=== PATIENT | male | born 1955 | race Caucasian/White ===

== ENCOUNTER 2019-02-03 10:53 | Outpatient (CLI) | payer MEDICARE ==
--- NOTE | 2019-02-06 00:07 | Ultrasound Report ---
Reason: DYSPNEA, EDEMA Procedure Date: 02/03/2019 Accession Number: [id number] / [id number] Procedure: US - Duplex Ext Veins Bilateral CPT Code: Final Report FULL RESULT: EXAM: BILATERAL LOWER EXTREMITY VENOUS ULTRASOUND EXAM DATE: 02/03/2019 11:15 AM. CLINICAL HISTORY: DYSPNEA, EDEMA. COMPARISON: None. TECHNIQUE: Real-time sonographic vascular imaging was performed by the landscape drafter through the lower extremities utilizing both color-flow and Doppler spectral analysis. Multiple mechanical service representative static images were saved for review. FINDINGS: Right: Common Femoral Vein (CFV): Normal. CFV-GSV Junction: Normal. Profunda Femoral Vein (PFV): Normal. Femoral Vein (FV) Prox: Normal. Femoral Vein (FV) Mid: Normal. Femoral Vein (FV) Dist: Normal. Popliteal Vein: Normal. Posterior Tibial Veins: Normal. Peroneal Veins: Normal. Left: Common Femoral Vein (CFV): Normal. CFV-GSV Junction: Normal. Profunda Femoral Vein (PFV): Normal. Femoral Vein (FV) Prox: Normal. Femoral Vein (FV) Mid: Normal. Femoral Vein (FV) Dist: Normal. Popliteal Vein: Normal. Posterior Tibial Veins: Normal. Peroneal Veins: Normal. Other: None. IMPRESSION: No evidence for deep venous thrombosis bilaterally. RADIA
== END 2019-02-03 10:54 | disposition home or self-care (01) ==
LOC: DI 10:53
PROVIDERS: ATTEND Internal Medicine
DX: R60.0 Localized edema (principal); R06.00 Dyspnea, unspecified; I35.1 Nonrheumatic aortic (valve) insufficiency
CPT/HCPCS: 93306; 93970

== ENCOUNTER 2019-04-27 11:08 | Outpatient (CLI) | payer MEDICARE ==
--- NOTE | 2019-04-28 15:35 | CT Report ---
Reason: RT FLANK PAIN, HX OF NEPHROLITHIASIS Procedure Date: 04/27/2019 Accession Number: [id number] / [id number] Procedure: CT - Abdomen/Pelvis WO CPT Code: Final Report FULL RESULT: EXAM: CT ABDOMEN AND PELVIS (CT KUB) EXAM DATE: 04/27/2019 11:21 AM. CLINICAL HISTORY: Right flank pain, history of nephrolithiasis. COMPARISONS: None. TECHNIQUE: Routine axial helical CT imaging was performed through the abdomen and pelvis without IV contrast. Reconstructions: Coronal and sagittal. In accordance with CT protocol optimization, one or more of the following dose reduction techniques were utilized for this exam: automated exposure control, adjustment of mA and/or KV based on patient size, or use of iterative reconstructive technique. FINDINGS: Lung Bases: None Right Kidney/Ureter: No stones, hydronephrosis, or hydroureter. No perinephric fat stranding. Left Kidney/Ureter: Nonobstructing 2 mm lower pole left renal stone. No hydronephrosis. No hydroureter. No masses are noted. Other Solid Organs: Liver shows a cirrhotic configuration, with an elevated caudate: right lobe ratio. Border of the left lobe is nodular and irregular. Some small amount of perihepatic ascites is present. Quite prominent short gastric varices. Series 3 image 27. Gallbladder/Bile Ducts: Unremarkable. Peritoneal Cavity: Sigmoid colonic diverticulosis is present without diverticulitis or abscess. Some free pelvic fluid is noted as well. Pelvic Organs: No bladder stones. No bladder wall thickening. Vasculature: Unremarkable. Other: L5-S1 disk space height loss and marginal arthrosis. Severe bilateral foraminal stenosis. Old T12 compression fracture with loss of about 15% of vertebral body height. No acute fractures. IMPRESSION: 1. Nonobstructing 2 mm lower pole left renal stone. No hydronephrosis, no masses. 2. Hepatic cirrhosis, small amount of ascitic fluid. Evidence for portal venous hypertension with distended short gastric varices. 3. Sigmoid colonic diverticulosis is present without diverticulitis or abscess formation. 4. L5-S1 disk space height loss, marginal arthrosis with severe bilateral foraminal stenosis, and old T12 compression fracture with loss of about 15% of vertebral body height. No acute fractures. RADIA
== END 2019-04-27 11:09 | disposition home or self-care (01) ==
LOC: DI 11:08
PROVIDERS: ATTEND Internal Medicine
DX: R10.9 Unspecified abdominal pain (principal); N20.0 Calculus of kidney; K74.60 Unspecified cirrhosis of liver; K76.6 Portal hypertension; K57.30 Diverticulosis of large intestine without perforation or abscess without bleeding; M47.817 Spondylosis without myelopathy or radiculopathy, lumbosacral region; M48.07 Spinal stenosis, lumbosacral region
CPT/HCPCS: 74176

== ENCOUNTER 2019-07-27 08:08 | Outpatient (CLI) | payer MEDICARE | END 2019-07-27 08:09 | disposition critical access hospital (66) | LOC: EMS 08:08 | PROVIDERS: ATTEND Surgery | DX: R06.02 Shortness of breath (principal) | CPT/HCPCS: A0425; A0427 ==

== ENCOUNTER 2019-07-27 08:19 | Emergency (ER) | payer MEDICARE ==
--- NOTE | 2019-07-27 08:54 | ED Physician Documentation ---
PD HPI DYSPNEA - Stated complaint Stated Complaint: SOA - Chief complaint Chief Complaint: Resp - History obtained from History obtained from: Patient, EMS - History of Present Illness Timing - onset: Last night Timing - onset during: Rest Timing - duration: Hours Timing - details: Gradual onset, Still present Inciting event(s): Immobilization/travel Improved by: O2, Inhaler/neb, Rest, Sitting up Worsened by: Exertion, Laying flat Associated symptoms: Wheezing, Bilateral edema. No: Fever, Cough, Chest pain / discomfort, Palpitations Similar symptoms before: Diagnosis (fluid retention) Recently seen: Surgery - Additional information Additional information: 63-year-old male has had an umbilical hernia repair done 3 days ago at [facility] and beginning yesterday he began develop some increasing shortness of breath with difficulty getting a full deep breath he coughs a lot all night last night and was unable to breathe this morning he comes to the emergency department with shortness of breath it is somewhat and better after receiving a treatment in route. He does have some peripheral edema which she has had prior to his hospitalization. He indicates a history of increasing exertional dyspnea over the past year. He has not had chest pain.With his coughing last night he did have some chest pain associated with a cough but no pain otherwise. He states he brought up a lot of clear phlegm with this. He does not think he aspirated. Review of Systems Constitutional: denies: Fever Eyes: denies: Decreased vision Ears: denies: Ear pain Nose: denies: Rhinorrhea / runny nose, Congestion Throat: denies: Sore throat Cardiac: reports: Pedal edema. denies: Chest pain / pressure, Palpitations Respiratory: reports: Dyspnea, Cough GI: reports: Abdominal Pain (surgical site). denies: Nausea, Vomiting : denies: Dysuria, Frequency PD PAST MEDICAL HISTORY - Present Medications Home Medications: Ambulatory Orders Medication Instructions Recorded Confirmed Levothyroxine [Synthroid] 0 mcg PO QDAC 07/27/19 07/27/19 Losartan Potassium [Cozaar] 0 mg PO DAILY 07/27/19 07/27/19 Spironolactone [Aldactone] 0 mg PO DAILY 07/27/19 07/27/19 - Allergies Allergies/Adverse Reactions: Allergies Allergy/AdvReac Type Severity Reaction Status Date / Time No Known Drug Allergies Allergy Verified 07/27/19 08:33 PD ED PE NORMAL - Vitals Vital signs reviewed: Yes (hypertensive ) - General General: Alert and oriented X 3, No acute distress, Well developed/nourished - HEENT HEENT: Atraumatic, PERRL, EOMI - Neck Neck: Supple, no meningeal sign, No bony TTP - Cardiac Cardiac: RRR, No murmur - Respiratory Respiratory: No respiratory distress, Clear bilaterally - Abdomen Abdomen: Soft, Non tender, Other (there are bandages to the lower abdomen over the surgical site. ) - Back Back: No CVA TTP, No spinal TTP - Derm Derm: Normal color, Warm and dry, No rash - Extremities Extremities: No deformity, No tenderness to palpate, Other (trace edema to the calves bilaterally pitting. ) - Neuro Neuro: Alert and oriented X 3, base ply hand 2-12 intact, No motor deficit, No sensory deficit, Normal speech Eye Opening: Spontaneous Motor: Obeys Commands Verbal: Oriented GCS Score: 15 - Psych Psych: Normal mood, Normal affect Results - Vitals Vitals: Vital Signs - 24 hr 07/27/19 07/27/19 07/27/19 08:20 09:30 10:37 Temperature 36.7 C Heart Rate 80 80 85 Respiratory 23 16 18 Rate Blood Pressure 155/77 H 167/80 H 157/74 H O2 Saturation 92 93 94 07/27/19 12:00 Temperature Heart Rate 90 Respiratory 26 H Rate Blood Pressure 170/72 H O2 Saturation 93 Oxygen O2 Source Nasal cannula Oxygen Flow Rate 3 - EKG (time done) 0849 Rate: Rate (enter#) (68) [place]: RAD QRS: Low voltage Compare to prior EKG: Old EKG unavailable Computer interpretation: Agree with computer - Labs Labs: Laboratory Tests 07/27/19 07/27/19 07/27/19 08:59 08:59 08:59 WBC 13.2 H RBC 4.48 L Hgb 16.4 Hct 47.7 MCV 106.5 H MCH 36.6 H MCHC 34.4 RDW 14.2 Plt Count 132 MPV 9.2 Neut # (Auto) 9.8 H Lymph # (Auto) 1.9 [place] # (Auto) 1.4 H Eos # (Auto) 0.0 Baso # (Auto) 0.1 Absolute Nucleated RBC 0.00 Nucleated RBC % 0.0 Sodium 137 Potassium 4.0 Chloride 93 L Carbon Dioxide 35 H Anion Gap 9.0 BUN 14 Creatinine 0.7 Estimated GFR (MDRD) 114 Glucose 130 H Lactic Acid Calcium 8.5 Total Bilirubin 1.1 H AST 40 ALT 23 Alkaline Phosphatase 137 H Troponin I High Sens 75.0 H* B-Natriuretic Peptide Total Protein 7.5 Albumin 3.1 L Globulin 4.4 H Albumin/Globulin Ratio 0.7 L Lipase 44 Urine Color Urine Clarity Urine pH Ur Specific [place] Urine Protein Urine Glucose (UA) Urine Ketones Urine Occult Blood Urine Nitrite Urine Bilirubin Urine Urobilinogen Ur Leukocyte Esterase Urine RBC Urine WBC Ur Squamous Epith Cells Urine Bacteria Ur Microscopic Review Urine Culture Comments 07/27/19 07/27/19 07/27/19 08:59 08:59 11:13 WBC RBC Hgb Hct MCV MCH MCHC RDW Plt Count MPV Neut # (Auto) Lymph # (Auto) [place] # (Auto) Eos # (Auto) Baso # (Auto) Absolute Nucleated RBC Nucleated RBC % Sodium Potassium Chloride Carbon Dioxide Anion Gap BUN Creatinine Estimated GFR (MDRD) Glucose Lactic Acid 1.6 Calcium Total Bilirubin AST ALT Alkaline Phosphatase Troponin I High Sens B-Natriuretic Peptide 163 H Total Protein Albumin Globulin Albumin/Globulin Ratio Lipase Urine Color DARK YELLOW Urine Clarity CLEAR Urine pH 8.0 H Ur Specific [place] 1.015 Urine Protein TRACE Urine Glucose (UA) NEGATIVE Urine Ketones NEGATIVE Urine Occult Blood MODERATE H Urine Nitrite NEGATIVE Urine Bilirubin NEGATIVE Urine Urobilinogen 1 (NORMAL) Ur Leukocyte Esterase NEGATIVE Urine RBC 0-5 Urine WBC 0-3 Ur Squamous Epith Cells NONE SEEN Urine Bacteria Few Ur Microscopic Review INDICATED Urine Culture Comments NOT INDICATED 07/27/19 11:17 WBC RBC Hgb Hct MCV MCH MCHC RDW Plt Count MPV Neut # (Auto) Lymph # (Auto) [place] # (Auto) Eos # (Auto) Baso # (Auto) Absolute Nucleated RBC Nucleated RBC % Sodium Potassium Chloride Carbon Dioxide Anion Gap BUN Creatinine Estimated GFR (MDRD) Glucose Lactic Acid Calcium Total Bilirubin AST ALT Alkaline Phosphatase Troponin I High Sens 85.2 H* B-Natriuretic Peptide Total Protein Albumin Globulin Albumin/Globulin Ratio Lipase Urine Color Urine Clarity Urine pH Ur Specific [place] Urine Protein Urine Glucose (UA) Urine Ketones Urine Occult Blood Urine Nitrite Urine Bilirubin Urine Urobilinogen Ur Leukocyte Esterase Urine RBC Urine WBC Ur Squamous Epith Cells Urine Bacteria Ur Microscopic Review Urine Culture Comments - Rads (name of study) CT angio Radiology: Prelim report reviewed (Impression: 1. Suboptimal evaluation for pulmonary embolism. No definite evidence for pulmonary embolism. 2 Trace right pleural effusion and minor bibasilar airspace disease favoring atelectasis. 3 Fibrofatty liver and small ascites.), EMP read indepedently, See rad report PD MEDICAL DECISION MAKING - ED course Complexity details: reviewed old records, reviewed results, re-evaluated patient, considered differential, d/w patient, d/w family ED course: 63-year-old male with acute exertional dyspnea now is developed dyspnea at rest. I did interrogate the inferior vena cava I did not find the patient to have an enlarged inferior vena cava. I did measure a cross-sectional area of this at 1.57 cm which is fairly normal. I do not think the patient has acute failure. His chest x-ray is concerning for atelectasis or infiltrate in the right base. He is afebrile. He does have elevated white blood cell count. His measured tr oponin was mildly elevated on his first draw his electrocardiogram was without evidence of ST elevation. A second troponin is elevated slightly more than the delta of concern (7 in our institution). He is elevated about 10 points. I have consulted the hospitalist at [facility] for transfer for an STEMI and pneumonia. The patient has had echocardiogram done 6 months ago which showed some mild concentric left ventricular hypertrophy with conserved ejection fraction and some mild elevated right heart pressure as well as some mild aortic regurg.Dr. Vaca hospitalist at [facility] is accepting recommends heparin. Departure - Departure Disposition: 02 Transfer Acute Care Hosp Clinical Impression: Myocardial infarction Qualifiers: Myocardial infarction type: non-ST elevation myocardial infarction Qualified Code(s): I21.4 - Non-ST elevation (NSTEMI) myocardial infarction Pneumonia Qualifiers: Pneumonia type: due to unspecified organism Laterality: right Lung location: lower lobe of lung Qualified Code(s): J18.9 - Pneumonia, unspecified organism Condition: Stable
[2019-07-27 09:13] LABS: BASOPHILS # (AUTO) 0.1 10^3/uL (0.0-0.1); BASOPHILS % (AUTO) 0.4 %; EOSINOPHILS % (AUTO) 0.3 %; HGB - HEMOGLOBIN 16.4 g/dL (14.0-18.0); LYMPHOCYTES # (AUTO) 1.9 10^3/uL (1.5-3.5); MEAN CORPUSCULAR HEMOGLOBIN 36.6 pg (27.0-31.0); MEAN CORPUSCULAR HGB CONC 34.4 g/dL (32.0-36.0); MEAN CORPUSCULAR VOLUME 106.5 fL (80.0-94.0); MEAN PLATELET VOLUME 9.2 fL (7.4-11.4); MONOCYTES # (AUTO) 1.4 10^3/uL (0.0-1.0); MONOCYTES % (AUTO) 10.8 %; NEUTROPHILS # (AUTO) 9.8 10^3/uL (1.5-6.6); NEUTROPHILS % (AUTO) 73.9 %; PLT - PLATELET COUNT 132 10^3/uL (130-450); RED BLOOD COUNT 4.48 10^6/uL (4.70-6.10); RED CELL DISTRIBUTION WIDTH 14.2 % (12.0-15.0); WHITE BLOOD COUNT 13.2 x10^3/uL (4.8-10.8)
[2019-07-27 09:22] LABS: ALBUMIN 3.1 g/dL (3.2-5.5); ALBUMIN/GLOBULIN RATIO 0.7 (1.0-2.2); BILIRUBIN,TOTAL 1.1 mg/dL (0.2-1.0); CALCIUM 8.5 mg/dL (8.5-10.3); CREATININE 0.7 mg/dL (0.6-1.2); TOTAL PROTEIN 7.5 g/dL (6.7-8.2)
[2019-07-27] MEDS ORDERED: IOVERSOL 320 100 ML VIAL IVP ONE ×2 (09:39→14:32)
--- NOTE | 2019-07-27 09:41 | XRAY Report ---
Reason: chest pain Procedure Date: 07/27/2019 Accession Number: [id number] / [id number] Procedure: XR - Chest 1 View X-Ray CPT Code: 48844 Final Report FULL RESULT: EXAM: CHEST RADIOGRAPHY EXAM DATE: 07/27/2019 08:57 AM. CLINICAL HISTORY: Chest pain. COMPARISON: None. TECHNIQUE: 1 view. FINDINGS: Lungs/Pleura: Bronchial wall thickening is noted. Patchy interstitial and alveolar opacities noted at both bases. No large effusions or pneumothorax. EKG leads overlie the chest. Mediastinum: No cardiac enlargement. Atheromatous disease is noted in the thoracic aorta. Other: None. IMPRESSION: 1. Patchy bibasilar opacities noted. Findings could represent developing infiltrates. 2. No effusions or pneumothorax. 3. Bronchial wall thickening suspicious for bronchitis or reactive airways disease. RADIA
[2019-07-27] MEDS ORDERED: ACETAMINOPHEN 325 MG TABLET PO STA (10:22)
[2019-07-27 11:29] LABS: BILIRUBIN,URINE NEGATIVE (NEGATIVE); GLUCOSE, URINE (UA) NEGATIVE (NEGATIVE); KETONES,URINE (UA) NEGATIVE (NEGATIVE); LEUKOCYTE ESTERASE, URINE NEGATIVE (NEGATIVE); NITRITE,URINE NEGATIVE (NEGATIVE); OCCULT BLOOD,URINE MODERATE (NEGATIVE); PROTEIN,URINE TRACE mg/dL (NEGATIVE); UROBILINOGEN,URINE 1 (NORMAL) E.U./dL (NORMAL)
[2019-07-27 11:31] LABS: CLARITY,URINE CLEAR (CLEAR)
[2019-07-27 11:40] LABS: BACTERIA,URINE Few /HPF (None Seen); RBC,URINE 0-5 /HPF (0-5); SQUAMOUS EPITHELIAL CELL,UR NONE SEEN (<= Few)
[2019-07-27] MEDS ORDERED: AZITHROMYCIN INJ 500 MG in SODIUM CHLORIDE 0.9% 250 ML IV STA (12:35)
[2019-07-27] MEDS ORDERED: cefTRIAXone 1 GM in SODIUM CHLORIDE 0.9% MINIBAG 100 ML IV STA (12:35)
[2019-07-27] MEDS ORDERED: HEPARIN 25000UNITS/500ML (D5W) 25,000 UNIT/500 ML BAG IV STA (13:24)
--- NOTE | 2019-07-27 13:57 | CT Report ---
Reason: dyspnea after surgery Procedure Date: 07/27/2019 Accession Number: [id number] / [id number] Procedure: CT - ANGIO CHEST W/WO CPT Code: Final Report FULL RESULT: EXAM: CT ANGIOGRAM CHEST EXAM DATE: 07/27/2019 09:59 AM. CLINICAL HISTORY: Shortness of breath. COMPARISON: None. TECHNIQUE: Routine helical imaging was performed through the chest in the pulmonary arterial phase. IV Contrast: OPTIRAY 320. Reconstructions: Coronal 3-D MIP reconstructions. Sagittal and coronal. In accordance with CT protocol optimization, one or more of the following dose reduction techniques were utilized for this exam: automated exposure control, adjustment of mA and/or KV based on patient size, or use of iterative reconstructive technique. FINDINGS: Pulmonary Arteries: Diagnostic quality: Adequate through the proximal segmental arteries. The distal segmental and subsegmental branches are technically limited in evaluation due to suboptimal contrast opacification. No definite evidence for acute or chronic pulmonary emboli. Lungs/Pleura: Trace right pleural effusion and minor mostly linear airspace opacification in the right middle lobe and right lower lobe is seen favoring atelectasis. Mediastinum: Heart size is borderline enlarged. There is no pericardial effusion or adenopathy. Moderate calcified coronary artery disease is seen. No adenopathy. Thoracic Aorta: Unremarkable. Upper Abdomen: Fibrofatty change of the liver is suggested. Small ascites is seen. Other: None. IMPRESSION: 1. Slightly suboptimal evaluation for pulmonary embolism. No definitive evidence for pulmonary embolism. 2. Trace right pleural effusion and minor bibasilar airspace disease favoring atelectasis. 3. Fibrofatty liver and small ascites. RADIA
[2019-07-27 14:14] VITALS: BP 137/67
== END 2019-07-27 14:33 | disposition short-term general hospital (02) ==
LOC: EDUNIT# → ED 08:19
DX: I21.4 Non-ST elevation (NSTEMI) myocardial infarction (principal); J18.9 Pneumonia, unspecified organism; Z98.890 Other specified postprocedural states
CPT/HCPCS: 36415; 71045; 71275; 80053; 81001; 83605; 83690; 83880; 84484; 85025; 93005; 96365; 96375; 99284; 99285; A9270; Q9967; 81003; 87086

== ENCOUNTER 2019-07-27 14:36 | Outpatient (CLI) | payer MEDICARE | END 2019-07-27 14:37 | disposition short-term general hospital (02) | LOC: EMS 14:36 | PROVIDERS: ATTEND Surgery | DX: I21.4 Non-ST elevation (NSTEMI) myocardial infarction (principal); J18.9 Pneumonia, unspecified organism | CPT/HCPCS: A0425; A0426 ==

== ENCOUNTER 2020-05-10 10:26 | Outpatient (CLI) | payer MEDICARE ==
[2020-05-10] MEDS ORDERED: IOPAMIDOL-300 50 ML VIAL ONE (10:58)
[2020-05-10] MEDS ORDERED: IOVERSOL 320 100 ML VIAL IVP ONE ×2 (10:58→16:05)
--- NOTE | 2020-05-10 15:48 | CT Report ---
PROCEDURE: Abdomen/Pelvis W INDICATIONS: CIRRHOSIS CONTRAST: IV CONTRAST: Optiray 320 ml: 100 PO CONTRAST: Isovue 300 ml50 TECHNIQUE: After the administration of IV and oral contrast, 5 mm thick sections acquired from the diaphragms to the symphysis. 5 mm thick coronal and sagittal reformats were acquired. For radiation dose reducti on, the following was used: automated exposure control, adjustment of mA and/or kV according to elle ent size. COMPARISON: 04/27/2019 FINDINGS: Image quality: Excellent. ABDOMEN: Lung bases: Lung bases are clear. Moderate coronary artery disease. Heart size is normal. Solid organs: Liver demonstrates a cirrhotic morphology with a nodular margin, hypertrophy caudate a nd left hepatic lobes, and atrophy of the right lobe. The spleen remains normal size. The gallbladder is absent. No adrenal nodules. A cortical hypodensity in the anterior lower pole of the right kidney measures about 1.9 cm, stable compared to the prior study. No hydronephrosis. The pancreas is normal . Peritoneum and bowel: Interval development of a large amount of intraperitoneal ascites. Extensive d iverticulosis is seen in the sigmoid. Bowel loops demonstrate normal wall thickness and caliber. No f ree air. Nodes and vessels: There are well-established left upper quadrant varices and distal esophageal vari evelio. Splenorenal shunt is present. No retroperitoneal or mesenteric adenopathy by size criteria. Aor ta and inferior vena cava are normal in size. Mild abdominal aortic atherosclerosis. Miscellaneous: There is a small fluid containing left lower quadrant spiculated hernia. There is ante rior abdominal wall subcutaneous edema. PELVIS: Genitourinary: Bladder wall thickness is normal. Miscellaneous: Mildly prominent external iliac adenopathy. Bones: No suspicious bony lesions. Chronic T12 compression fracture, unchanged. Degenerative disc an d endplate change at L5-S1. IMPRESSION: 1. Development of intraperitoneal ascites. 2. Cirrhotic liver without definite neoplasm. 3. Left upper quadrant portosystemic shunting and distal esophageal varices. 4. Sigmoid diverticulosis. Reviewed by: Inez Franz MD on 05/10/2020 3:47 PM PST Approved by: Inez Franz MD on 05/10/2020 3:47 PM PST Station ID: [id number]
[2020-05-10] MEDS ORDERED: IOPAMIDOL-300 50 ML VIAL PO ONE (16:06)
== END 2020-05-10 10:27 | disposition home or self-care (01) ==
LOC: LAB 10:26
PROVIDERS: ATTEND Internal Medicine
DX: K70.31 Alcoholic cirrhosis of liver with ascites (principal)

== ENCOUNTER 2020-05-10 10:33 | Outpatient (CLI) | payer MEDICARE ==
[2020-05-10 11:16] LABS: CALCIUM 8.9 mg/dL (8.5-10.3); CREATININE 1.5 mg/dL (0.6-1.2); POTASSIUM 4.2 mmol/L (3.5-5.0)
== END 2020-05-10 10:34 | disposition home or self-care (01) ==
LOC: LAB 10:33
PROVIDERS: ATTEND Internal Medicine Gastroenterology
DX: K70.31 Alcoholic cirrhosis of liver with ascites (principal); I50.30 Unspecified diastolic (congestive) heart failure; I85.10 Secondary esophageal varices without bleeding; K57.30 Diverticulosis of large intestine without perforation or abscess without bleeding; Z96.89 Presence of other specified functional implants
CPT/HCPCS: 36415; 74177; 80048; 83880; Q9967

== ENCOUNTER 2020-06-25 00:28 | Outpatient (CLI) | payer MEDICARE | END 2020-06-25 23:59 | disposition short-term general hospital (02) | LOC: EMS 00:28 | DX: K92.0 Hematemesis (principal) | CPT/HCPCS: A0425; A0427 ==

== ENCOUNTER 2020-07-04 16:18 | Outpatient (CLI) | payer MEDICARE | END 2020-07-04 16:19 | disposition other institution (70) | LOC: EMS 16:18 | DX: R55 Syncope and collapse (principal); R41.82 Altered mental status, unspecified | CPT/HCPCS: A0425; A0427 ==

== ENCOUNTER 2020-07-08 20:48 | Emergency (ER) | payer MEDICARE ==
--- OUTSIDE RECORDS SUMMARY | 2020-07-08 20:50 | EXTERNAL MEDICAL SUMMARY RPT | Continuity of Care Document ---
:1955 Demographics Phone Unavailable Preferred Language Unknown Marital Status Unknown Mormonism Affiliation Unknown Race Unknown Ethnic Group Unknown Author Organization [place] Address [address] [place] [address] Phone Problems date description facility [id number] syncopy [facility] [id number]/syncopy [facility] [id number] [facility]/syncopy [facility] [id number] [facility]/syncopy [facility] [id number] active esophageal and gastric varices [facility] [id number] Gastrointestinal hemorrhage, [facility] unspecified [id number] Esophageal varices with bleeding [facility]
--- OUTSIDE RECORDS SUMMARY | 2020-07-08 21:04 | EXTERNAL MEDICAL SUMMARY RPT | Continuity of Care Document ---
:1955 Demographics Phone Unavailable Preferred Language Unknown Marital Status Unknown Restorationist Affiliation Unknown Race Unknown Ethnic Group Unknown Author Organization [place] Address [address] [place] [address] Phone Problems date description facility [id number] syncopy [facility] [id number] [id number]/syncopy [facility] [id number] [facility]/syncopy [facility] [id number] [facility]/syncopy [facility] [id number] active esophageal and gastric varices [facility] [id number] Gastrointestinal hemorrhage, [facility] unspecified [id number] Esophageal varices with bleeding [facility]
[2020-07-08 22:31] LABS: INR 1.5 (0.8-1.2); PT - PROTHROMBIN TIME 16.2 secs (9.9-12.6)
[2020-07-08 22:35] LABS: EOSINOPHILS % (AUTO) 3.6 %; HCT - HEMATOCRIT 23.2 % (42.0-52.0); HGB - HEMOGLOBIN 7.6 g/dL (14.0-18.0); MEAN CORPUSCULAR HEMOGLOBIN 31.8 pg (27.0-31.0); MEAN CORPUSCULAR HGB CONC 32.8 g/dL (32.0-36.0); MEAN CORPUSCULAR VOLUME 97.1 fL (80.0-94.0); MEAN PLATELET VOLUME 8.8 fL (7.4-11.4); MONOCYTES % (AUTO) 12.7 %; PLT - PLATELET COUNT 170 10^3/uL (130-450); RED BLOOD COUNT 2.39 10^6/uL (4.70-6.10); RED CELL DISTRIBUTION WIDTH 18.9 % (12.0-15.0); WHITE BLOOD COUNT 12.3 x10^3/uL (4.8-10.8)
[2020-07-08 22:36] LABS: ALBUMIN 2.2 g/dL (3.2-5.5); ALBUMIN/GLOBULIN RATIO 0.6 (1.0-2.2); BILIRUBIN,TOTAL 0.8 mg/dL (0.2-1.0); CALCIUM 7.7 mg/dL (8.5-10.3); CREATININE 1.6 mg/dL (0.6-1.2); POTASSIUM 4.2 mmol/L (3.5-5.0); TOTAL PROTEIN 5.6 g/dL (6.7-8.2)
[2020-07-08 22:37] LABS: ABNORMAL LYMPHS % (MANUAL) 0 %
[2020-07-08 23:02] LABS: BAND NEUTROPHILS % (MANUAL) 1 %; BASOPHILS # (MANUAL) 0.1 10^3/uL (0-0.1); BASOPHILS % (MANUAL) 1 %; EOSINOPHILS # (MANUAL) 0.5 10^3/uL (0-0.7); LYMPHOCYTES # (MANUAL) 1.6 10^3/uL (1.5-3.5); LYMPHOCYTES % (MANUAL) 11 %; METAMYELOCYTES % (MANUAL) 1 %; MONOCYTES # (MANUAL) 1.5 10^3/uL (0.0-1.0); NEUTROPHILS # (MANUAL) 8.5 10^3/uL (1.5-6.6); REACTIVE LYMPHS % (MANUAL) 2 %
[2020-07-08 23:03] LABS: DIFFERENTIAL COMMENT MANUAL DIFFERENTIAL; PLATELET ESTIMATE, MANUAL NORMAL (130-450,000) (NORMAL); PLATELET MORPHOLOGY NORMAL APPEARANCE (NORMAL); WBC MORPHOLOGY (MULTIPLE) 1+ TOXIC GRANULATION (NORMAL)
[2020-07-08] MEDS ORDERED: OCTREOTIDE 500 MCG in SODIUM CHLORIDE 0.9% 100ML 95 ML IV STA (23:24)
[2020-07-08] MEDS ORDERED: PANTOPRAZOLE 40 MG VIAL IVP STA (23:25)
[2020-07-08] MEDS ORDERED: OCTREOTIDE 100 MCG/ML VIAL ONE (23:28)
[2020-07-09] MEDS ORDERED: PANTOPRAZOLE 80 MG in SODIUM CHLORIDE 0.9% 100ML 100 ML IV STA (00:05)
[2020-07-09 00:09] LABS: HCT - HEMATOCRIT 23.3 % (42.0-52.0); HGB - HEMOGLOBIN 7.5 g/dL (14.0-18.0)
[2020-07-09] MEDS ORDERED: ONDANSETRON 4 MG/2 ML VIAL IVP STA (00:43)
[2020-07-09 00:56] LABS: B. PARAPERTUSSIS- RESP PCR PAN NOT DETECTED; B. PERTUSSIS- RESP PCR PANEL NOT DETECTED; C. PNEUMONIAE- RESP PCR PANEL NOT DETECTED; CORONAVIRUS 229E-RESP PCR NOT DETECTED; CORONAVIRUS HKU1-RESP PCR NOT DETECTED; CORONAVIRUS NL63-RESP PCR NOT DETECTED; CORONAVIRUS OC43-RESP PCR NOT DETECTED; HUMAN METAPNEUMOVIRUS NOT DETECTED; INFLUENZA A- RESP PCR PANEL NOT DETECTED; INFLUENZA B - RESP PCR PANEL NOT DETECTED; M. PNEUMONIAE- RESP PCR PANEL NOT DETECTED; PARAINFLUENZA VIRUS 1 NOT DETECTED; PARAINFLUENZA VIRUS 2 NOT DETECTED; PARAINFLUENZA VIRUS 3 NOT DETECTED; PARAINFLUENZA VIRUS 4 NOT DETECTED; RHINOVIRUS/ENTEROVIRUS NOT DETECTED; RSV- RESP PCR PANEL NOT DETECTED; SARS-CoV-2 -RESP PCR PANEL NOT DETECTED
--- NOTE | 2020-07-09 01:17 | ED Physician Documentation ---
PD HPI GI BLEED - Stated complaint Stated Complaint: BLOOD IN STOOL - Chief complaint Chief Complaint: Abd Pain - History obtained from History obtained from: Patient - History of Present Illness Timing - onset: Today Timing - details: Abrupt onset Pain level max: 0 Pain level now: 0 Associated symptoms: Maroon stool, Black/tarry stool Contributing factors: Other (cirhhosis, GI bleeding, TIPS) Improved by: Other (no ameliorating factors) Worsened by: Other (no exacerbating factors) Similar symptoms before: Diagnosis (cirrhosis, esophageal varices) Recently seen: Surgery - Additional information Additional information: patient had TIPS 06/27 in setting of hematemesis leading to hemorrhagic shock requiring pressors and transfusion of multiple units PRBC. He was eventually weaned off pressors and discharged but required return to the hospital for hematemesis, had repeat scope revealing large bleeding esophageal varix. This was again at [facility] and he was discharged earlier today (07/08). he comes to ED at this time due to black, tarry stool with areas in the stool of maroon and bright red blood. Review of Systems Constitutional: reports: Reviewed and negative Eyes: reports: Reviewed and negative Ears: reports: Reviewed and negative Nose: reports: Reviewed and negative Throat: reports: Reviewed and negative Cardiac: reports: Reviewed and negative Respiratory: reports: Reviewed and negative GI: reports: Abdominal Swelling, Nausea, Bloody / black stool. denies: Abdominal Pain, Vomiting : reports: Reviewed and negative Skin: reports: Reviewed and negative Musculoskeletal: reports: Reviewed and negative Neurologic: reports: Confused. denies: Generalized weakness, Focal weakness, Numbness, Headache PD PAST MEDICAL HISTORY - Past Medical History Past Medical History: Yes Cardiovascular: Hypertension GI: Hiatal hernia, Cirrhosis : Kidney stones Other Past Medical History: UGIB - Past Surgical History Past Surgical History: Yes General: Cholecystectomy, Hiatal hernia repair Ortho: Knee replacement - Present Medications Home Medications: Ambulatory Orders Medication Instructions Recorded Confirmed Levothyroxine [Synthroid] 0 mcg PO QDAC 07/27/19 07/08/20 Losartan Potassium [Cozaar] 0 mg PO DAILY 07/27/19 07/08/20 Spironolactone [Aldactone] 0 mg PO DAILY 07/27/19 07/08/20 Furosemide [Lasix] 20 mg PO DAILY 07/08/20 07/08/20 Lactulose 10 gm PO Q6HR 07/08/20 07/08/20 Pantoprazole [Protonix] 40 mg PO DAILY 07/08/20 07/08/20 Rifaximin [Xifaxan] 550 mg PO DAILY 07/08/20 07/08/20 Spironolactone [Aldactone] 50 mg PO DAILY 07/08/20 07/08/20 - Allergies Allergies/Adverse Reactions: Allergies Allergy/AdvReac Type Severity Reaction Status Date / Time acetaminophen Allergy Unknown Verified 07/08/20 21:14 - Social History Does the pt smoke?: No Smoking Status: Never smoker Does the pt drink ETOH?: Yes Does the pt have substance abuse?: No - Immunizations Immunizations are current?: Yes PD ED PE NORMAL - Vitals Vital signs reviewed: Yes - General General: Alert and oriented X 3, No acute distress, Well developed/nourished - HEENT HEENT: Moist mucous membranes - Neck Neck: Supple, no meningeal sign - Cardiac Cardiac: RRR, No murmur - Respiratory Respiratory: No respiratory distress, Clear bilaterally - Abdomen Abdomen: Soft - Neuro Neuro: Alert and oriented X 3, crushing foreman 2-12 intact, No motor deficit, No sensory deficit Eye Opening: Spontaneous Motor: Obeys Commands Verbal: Oriented GCS Score: 15 PD ED PE EXPANDED - Abdomen Abdomen: Distended. No: Tender to palpation - Derm Derm: Pale - Extremities Extremities: Pedal edema bilateral Results - Vitals Vitals: Vital Signs - 24 hr 07/08/20 07/08/20 07/08/20 21:14 21:17 23:17 Temperature 36.6 C 36.6 C 36.6 C Heart Rate 88 88 87 Respiratory 16 16 16 Rate Blood Pressure 155/59 H 155/59 H 135/56 H O2 Saturation 94 94 97 07/09/20 07/09/20 07/09/20 00:04 01:11 01:32 Temperature 36.6 C 36.6 C Heart Rate 98 88 98 Respiratory 16 20 25 H Rate Blood Pressure 130/52 L 86/66 L 112/51 L O2 Saturation 95 95 93 07/09/20 07/09/20 07/09/20 01:46 02:09 02:25 Temperature 36.6 C 37.2 C Heart Rate 94 85 77 Respiratory 23 18 17 Rate Blood Pressure 90/43 L 87/73 L 105/94 H O2 Saturation 91 L 100 Oxygen O2 Source Room air - Labs Labs: Laboratory Tests 07/08/20 07/08/20 07/08/20 22:18 22:18 22:18 WBC 12.3 H RBC 2.39 L Hgb 7.6 L Hct 23.2 L MCV 97.1 H MCH 31.8 H MCHC 32.8 RDW 18.9 H Plt Count 170 MPV 8.8 Neut # (Auto) Not Reportable Lymph # (Auto) Not Reportable [place] # (Auto) Not Reportable Eos # (Auto) Not Reportable Baso # (Auto) Not Reportable Absolute Nucleated RBC Not Reportable Total Counted 100 Band Neuts % (Manual) 1 Reactive Lymphs % (Man) 2 Abnorm Lymph % (Manual) 0 Metamyelocytes % 1 H Nucleated RBC % Not Reportable Neutrophils # (Manual) 8.5 H Lymphocytes # (Manual) 1.6 Monocytes # (Manual) 1.5 H Eosinophils # (Manual) 0.5 Basophils # (Manual) 0.1 Differential Comment MANUAL DIFFERENTIAL WBC Morphology 1+ TOXIC GRANULATION Platelet Estimate NORMAL (130-450,000) Platelet Morphology NORMAL APPEARANCE RBC Morph Micro Appear 1+ POLYCHROMASIA PT 16.2 H INR 1.5 H Sodium 134 L Potassium 4.2 Chloride 102 Carbon Dioxide 25 Anion Gap 7.0 BUN 25 H Creatinine 1.6 H Estimated GFR (MDRD) 44 L Glucose 150 H Calcium 7.7 L Total Bilirubin 0.8 AST 42 ALT 25 Alkaline Phosphatase 104 Ammonia Total Protein 5.6 L Albumin 2.2 L Globulin 3.4 Albumin/Globulin Ratio 0.6 L Lipase 49 Nasal Adenovirus (PCR) Nasal B. parapertussis DNA (PCR) Nasal Coronavir 229E PCR Nasal Coronavir HKU1 PCR Nasal Coronavir NL63 PCR Nasal Coronavir OC43 PCR Nasal Enterovir/Rhinovir PCR Nasal Influenza B PCR Nasal Influenza A PCR Nasal Parainfluen 1 PCR Nasal Parainfluen 2 PCR Nasal Parainfluen 3 PCR Nasal Parainfluen 4 PCR Nasal RSV (PCR) Nasal B.pertussis DNA PCR Nasal C.pneumoniae (PCR) Greg Human Metapneumo PCR Nasal M.pneumoniae (PCR) Nasal SARS-CoV-2 (PCR) Blood Type Blood Type Recheck Antibody Screen Crossmatch IS Only 07/08/20 07/08/20 07/08/20 22:18 22:18 23:39 WBC RBC Hgb Hct MCV MCH MCHC RDW Plt Count MPV Neut # (Auto) Lymph # (Auto) [place] # (Auto) Eos # (Auto) Baso # (Auto) Absolute Nucleated RBC Total Counted Band Neuts % (Manual) Reactive Lymphs % (Man) Abnorm Lymph % (Manual) Metamyelocytes % Nucleated RBC % Neutrophils # (Manual) Lymphocytes # (Manual) Monocytes # (Manual) Eosinophils # (Manual) Basophils # (Manual) Differential Comment WBC Morphology Platelet Estimate Platelet Morphology RBC Morph Micro Appear PT INR Sodium Potassium Chloride Carbon Dioxide Anion Gap BUN Creatinine Estimated GFR (MDRD) Glucose Calcium Total Bilirubin AST ALT Alkaline Phosphatase Ammonia 80.8 H* Total Protein Albumin Globulin Albumin/Globulin Ratio Lipase Nasal Adenovirus (PCR) Nasal B. parapertussis DNA (PCR) Nasal Coronavir 229E PCR Nasal Coronavir HKU1 PCR Nasal Coronavir NL63 PCR Nasal Coronavir OC43 PCR Nasal Enterovir/Rhinovir PCR Nasal Influenza B PCR Nasal Influenza A PCR Nasal Parainfluen 1 PCR Nasal Parainfluen 2 PCR Nasal Parainfluen 3 PCR Nasal Parainfluen 4 PCR Nasal RSV (PCR) Nasal B.pertussis DNA PCR Nasal C.pneumoniae (PCR) Greg Human Metapneumo PCR Nasal M.pneumoniae (PCR) Nasal SARS-CoV-2 (PCR) Blood Type O POSITIVE Blood Type Recheck O POSITIVE Antibody Screen NEGATIVE Crossmatch IS Only See Detail 07/08/20 07/08/20 23:39 23:55 WBC RBC Hgb 7.5 L Hct 23.3 L MCV MCH MCHC RDW Plt Count MPV Neut # (Auto) Lymph # (Auto) [place] # (Auto) Eos # (Auto) Baso # (Auto) Absolute Nucleated RBC Total Counted Band Neuts % (Manual) Reactive Lymphs % (Man) Abnorm Lymph % (Manual) Metamyelocytes % Nucleated RBC % Neutrophils # (Manual) Lymphocytes # (Manual) Monocytes # (Manual) Eosinophils # (Manual) Basophils # (Manual) Differential Comment WBC Morphology Platelet Estimate Platelet Morphology RBC Morph Micro Appear PT INR Sodium Potassium Chloride Carbon Dioxide Anion Gap BUN Creatinine Estimated GFR (MDRD) Glucose Calcium Total Bilirubin AST ALT Alkaline Phosphatase Ammonia Total Protein Albumin Globulin Albumin/Globulin Ratio Lipase Nasal Adenovirus (PCR) NOT DETECTED Nasal B. parapertussis DNA (PCR) NOT DETECTED Nasal Coronavir 229E PCR NOT DETECTED Nasal Coronavir HKU1 PCR NOT DETECTED Nasal Coronavir NL63 PCR NOT DETECTED Nasal Coronavir OC43 PCR NOT DETECTED Nasal Enterovir/Rhinovir PCR NOT DETECTED Nasal Influenza B PCR NOT DETECTED Nasal Influenza A PCR NOT DETECTED Nasal Parainfluen 1 PCR NOT DETECTED Nasal Parainfluen 2 PCR NOT DETECTED Nasal Parainfluen 3 PCR NOT DETECTED Nasal Parainfluen 4 PCR NOT DETECTED Nasal RSV (PCR) NOT DETECTED Nasal B.pertussis DNA PCR NOT DETECTED Nasal C.pneumoniae (PCR) NOT DETECTED Greg Human Metapneumo PCR NOT DETECTED Nasal M.pneumoniae (PCR) NOT DETECTED Nasal SARS-CoV-2 (PCR) NOT DETECTED Blood Type Blood Type Recheck Antibody Screen Crossmatch IS Only PD MEDICAL DECISION MAKING - ED course Complexity details: reviewed old records, reviewed results, re-evaluated patient, considered differential, d/w patient, d/w family ED course: While in ED, patient had large black, tarry stool with small amounts of maroon blood. H/H is decreased compared to when he was discharged from [facility] earlier today (8.4 hgb when discharged, 7.6 tonight). I discussed the case with Dr. Bedolla (product inspection supervisor GI at [facility]). He agrees with transfer, recommends hospitalist service. I then d/w Dr. Villalobos, hospitalist at [facility]. He agrees patient is appropriate for transfer, recommends repeat h/h and initiate protonix drip (octreotide drip already running). He also recommends transfusing PRBC. Repeat hgb is 7.5. unfortunately, patient then had hematemesis. Initially small amount (less than 100cc), but then had 700cc hematemesis. I recontacted Dr. Villalobos and it was agreed that patient needs ICU admission. I was then informed by the [facility] transfer center that no ICU beds are available. Other hospitals were contacted and there are no beds available at [facility], [place] in [place]. I then heard back from [facility] transfer center and they have paged their detention officer, as a bed might be available. While waiting to hear back from [facility], I discussed the case with the transfer center coordinator at [facility] for consideration for transfer and they will have the detention officer call back. I then heard from Dr. Scott, detention officer at [facility]; he accepts transfer to [facility]. Central line placed by anesthesia during ED stay. Patient became transiently hypotensive late in ED stay, improved as blood was being transfused Departure - Departure Disposition: 02 Transfer Acute Care Hosp Clinical Impression: Gastrointestinal hemorrhage Qualifiers: GI bleed type/associated pathology: unspecified gastrointestinal hemorrhage type Qualified Code(s): K92.2 - Gastrointestinal hemorrhage, unspecified Condition: Critical Discharge Date/Time: 07/09/20 02:54
--- NOTE | 2020-07-09 01:54 | ANESTHESIA ---
Pre-Anesthesia VS, & Labs - Diagnosis GI bleed - Procedure CVL placement Vital Signs: Temp Pulse Resp BP Pulse Ox 36.6 C 94 23 90/43 L 91 L 07/09/20 01:11 07/09/20 01:46 07/09/20 01:46 07/09/20 01:46 07/09/20 01:46 Height: 5 ft 11 in Weight (kg): 153.768 kg Body Mass Index: 47.2 BMI Classification: Morbidly Obese - Lab Results Current Lab Results: Laboratory Tests 07/08/20 23:39: Hgb 7.5 L, Hct 23.3 L 07/08/20 23:39: Blood Type O POSITIVE, Antibody Screen NEGATIVE, Crossmatch IS Only See Detail 07/08/20 22:18: Blood Type Recheck O POSITIVE 07/08/20 22:18: Ammonia 80.8 H* 07/08/20 22:18: Sodium 134 L, Potassium 4.2, Chloride 102, Carbon Dioxide 25, Anion Gap 7.0, BUN 25 H, Creatinine 1.6 H, Estimated GFR (MDRD) 44 L, Glucose 150 H, Calcium 7.7 L, Total Bilirubin 0.8, AST 42, ALT 25, Alkaline Phosphatase 104, Total Protein 5.6 L, Albumin 2.2 L, Globulin 3.4, Albumin/Globulin Ratio 0.6 L, Lipase 49 07/08/20 22:18: PT 16.2 H, INR 1.5 H 07/08/20 22:18: WBC 12.3 H, RBC 2.39 L, Hgb 7.6 L, Hct 23.2 L, MCV 97.1 H, MCH 31.8 H, MCHC 32.8, RDW 18.9 H, Plt Count 170, MPV 8.8, Neut # (Auto) Not Reportable, Lymph # (Auto) Not Reportable, [place] # (Auto) Not Reportable, Eos # (Auto) Not Reportable, Baso # (Auto) Not Reportable, Absolute Nucleated RBC Not Reportable, Total Counted 100, Band Neuts % (Manual) 1, Reactive Lymphs % (Man) 2, Abnorm Lymph % (Manual) 0, Metamyelocytes % 1 H, Nucleated RBC % Not Reportable, Neutrophils # (Manual) 8.5 H, Lymphocytes # (Manual) 1.6, Monocytes # (Manual) 1.5 H, Eosinophils # (Manual) 0.5, Basophils # (Manual) 0.1, Differential Comment MANUAL DIFFERENTIAL, WBC Morphology 1+ TOXIC GRANULATION, Platelet Estimate NORMAL (130-450,000), Platelet Morphology NORMAL APPEARANCE, RBC Morph Micro Appear 1+ POLYCHROMASIA Fish Bones: 07/08/20 23:39 07/08/20 22:18 Home Medications and Allergies Home Medications: Ambulatory Orders Furosemide [Lasix] 20 mg PO DAILY 07/08/20 Lactulose 10 gm PO Q6HR 07/08/20 Pantoprazole [Protonix] 40 mg PO DAILY 07/08/20 Rifaximin [Xifaxan] 550 mg PO DAILY 07/08/20 Spironolactone [Aldactone] 50 mg PO DAILY 07/08/20 Active Medications Octreotide Acetate 500 mcg/ (Sodium Chloride) 100 mls @ 10 mls/hr IV ONCE STA Stop: 07/09/20 09:23 Last Admin: 07/08/20 23:40 Dose: 50 mcg/hr, 10 mls/hr Documented by: Pantoprazole Sodium 80 mg/ (Sodium Chloride) 100 mls @ 10 mls/hr IV .Q10H STA Stop: 07/09/20 10:04 Levothyroxine [Synthroid] 0 mcg PO QDAC 07/27/19 Losartan Potassium [Cozaar] 0 mg PO DAILY 07/27/19 Spironolactone [Aldactone] 0 mg PO DAILY 07/27/19 Furosemide [Lasix] 20 mg PO DAILY 07/08/20 Lactulose 10 gm PO Q6HR 07/08/20 Pantoprazole [Protonix] 40 mg PO DAILY 07/08/20 Rifaximin [Xifaxan] 550 mg PO DAILY 07/08/20 Spironolactone [Aldactone] 50 mg PO DAILY 07/08/20 Allergies/Adverse Reactions: Allergies Allergy/AdvReac Type Severity Reaction Status Date / Time acetaminophen Allergy Unknown Verified 07/08/20 21:14 Anes History & Medical History - Anesthetic History Anesthesia Complications: reports: No previous complications Family history of Anesthesia Complications: Denies Family history of Malignant Hyperthermia: Denies - Medical History Cardiovascular: reports: Hypertension Gastrointestinal: reports: Hiatal hernia, Cirrhosis Urinary: reports: Kidney stones Smoking Status: Never smoker Other Past Medical History: UGIB - Surgical History General: reports: Cholecystectomy, Hiatal hernia repair Orthopedic: reports: Knee replacement Exam General: Alert, Oriented x3, Cooperative Dental: WNL Mouth Openin Fingerbreadth Neck Mobility: Normal Mallampati classification: III Thyromental Distance: less than 4 cm Respiratory: Lungs clear Cardiovascular: Regular rate Plan Anesthesia Type: MAC Consent for Procedure(s) Verified and Reviewed: Yes Code Status: Attempt Resuscitation ASA classification: 4-Incapacitating disease Is this case an emergency?: Yes
--- NOTE | 2020-07-09 01:57 | CONSULTATION NOTE ---
Consultation Report: consulted to ER for CVL. Consent obtained. 3L 7Fr RIJ CVL placed by Sha Gonzales CRNA under U/S guidance. Sterile technique maintained. Pt tolerated well. Port CXR to confirm placement
--- NOTE | 2020-07-09 01:58 | ANESTHESIA PROCEDURE NOTE ---
Anesth Central Line Template - Central Line Central Line Preparation: Consent Obtained, Time out completed (placed by Sha Gonzales), Ultrasound used, Sterile prep and drape Central line location: Right IJ Central line type: Triple lumen Central line catheter tip site resides: Superior vena cava (SVC) Central line aftercare: Chlorhexidine disc placed, Secured, Placement confirmed, No pneumothorax, No complications, Bundle checklist complete, Pt tolerated well
[2020-07-09] MEDS ORDERED: PANTOPRAZOLE 40 MG VIAL ONE (02:20)
[2020-07-09 02:27] VITALS: BP 105/94
--- NOTE | 2020-07-09 08:15 | XRAY Report ---
PROCEDURE: Chest for Line Placement INDICATIONS: Central Line Placement TECHNIQUE: One view of the chest was acquired. COMPARISON: Chest CT and single view chest plain film 07/27/2019. FINDINGS: Surgical changes and devices: Central line from right-sided approach extends into the distal SVC.. Lungs and pleura: No pleural effusions or pneumothorax. Lungs are clear. Mediastinum: Mediastinal contours appear normal. Heart size is normal. Bones and chest wall: No suspicious bony lesions. Overlying soft tissues appear unremarkable. IMPRESSION: Normal Central line positioning, no pneumothorax. No definite acute disease. Reviewed by: Hal Coley MD on 07/09/2020 8:14 AM PDT Approved by: Hal Coley MD on 07/09/2020 8:14 AM PDT Station ID: [id number]
== END 2020-07-09 02:54 | disposition short-term general hospital (02) ==
LOC: ED 20:48
DX: K92.2 Gastrointestinal hemorrhage, unspecified (principal); K74.60 Unspecified cirrhosis of liver; I85.10 Secondary esophageal varices without bleeding; E66.01 Morbid (severe) obesity due to excess calories; Z68.42 Body mass index [BMI] 45.0-49.9, adult; Z96.89 Presence of other specified functional implants
CPT/HCPCS: 36415; 36430; 71045; 80053; 82140; 83690; 85014; 85018; 85025; 85610; 86850; 86900; 86901; 86920; 87631; 96374; 96375; 99283; 99285; J2354; P9016; 0202U

== ENCOUNTER 2020-07-23 11:07 | Emergency (ER) | payer MEDICARE ==
--- OUTSIDE RECORDS SUMMARY | 2020-07-23 11:11 | EXTERNAL MEDICAL SUMMARY RPT | Continuity of Care Document ---
:1955 Demographics Phone Unavailable Preferred Language Unknown Marital Status Unknown Catholic Affiliation Unknown Race Unknown Ethnic Group Unknown Author Organization [place] Address [address] [place] [address] Phone Problems date description facility [id number] [facility] [id number] syncopy [facility] [id number]/syncopy [facility] [id number] [facility]/syncopy [facility] [id number] [facility]/syncopy [facility] [id number] active esophageal and gastric varices [facility] [id number] Gastrointestinal hemorrhage, [facility] unspecified [id number] Esophageal varices with bleeding [facility]
--- NOTE | 2020-07-23 12:13 | ED Physician Documentation ---
History of Present Illness - Stated complaint Stated Complaint: ABD SWELLING - Chief complaint Chief Complaint: Abd Pain - Additonal information Additional information: 64-year-old male is referred to the emergency department through his primary care office for evaluation of lower leg swelling and abdominal swelling. Patient did have a TIPS procedure 06/27/20 in the setting of hemataemesis as well as hemorrhagic shock. he was dc from [facility] ([place], [place]) 07/08/20 but he he presented to [facility] shortly after dc with persistent melena and tarry stools and was again transferred to [facility] where there required further intervention for variceal bleeding. 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 He reports that since being discharged in the hospital he has been taking his spironolactone as well as Lasix but the swelling is worsening. He denies chest pain or shortness of air. No further hematemesis or melena. diruetics include: Spironolactone 50 mg qd and lasix 20 mg daily and 40 mg every other day Review of Systems Constitutional: denies: Fever, Chills Eyes: reports: Reviewed and negative Ears: reports: Reviewed and negative Nose: reports: Reviewed and negative Throat: reports: Reviewed and negative Cardiac: reports: Pedal edema. denies: Chest pain / pressure, Palpitations Respiratory: denies: Dyspnea, Cough GI: reports: Abdominal Swelling. denies: Nausea, Vomiting, Hematemesis, Bloody / black stool : reports: Reviewed and negative Skin: reports: Reviewed and negative Musculoskeletal: reports: Reviewed and negative PD PAST MEDICAL HISTORY - Past Medical History Past Medical History: Yes Cardiovascular: Hypertension, Coronary artery disease Respiratory: None Neuro: None Endocrine/Autoimmune: None GI: Hiatal hernia, Cirrhosis : Kidney stones HEENT: None Psych: None Musculoskeletal: None Derm: None - Past Surgical History Past Surgical History: Yes General: Cholecystectomy, Hiatal hernia repair Ortho: Knee replacement - Present Medications Home Medications: Ambulatory Orders Medication Instructions Recorded Confirmed Levothyroxine [Synthroid] 250 mcg PO DAILY 07/27/19 07/23/20 Furosemide [Lasix] 20 mg PO DAILY 07/08/20 07/23/20 Lactulose 30 ml PO Q6HR 07/08/20 07/23/20 Rifaximin [Xifaxan] 550 mg PO BID 07/08/20 07/08/20 Spironolactone [Aldactone] 50 mg PO DAILY 07/08/20 07/23/20 Folic Acid 1 mg PO DAILY 07/23/20 07/23/20 Furosemide [Lasix] 40 mg PO DAILY #60 tablet 07/23/20 - Allergies Allergies/Adverse Reactions: Allergies Allergy/AdvReac Type Severity Reaction Status Date / Time acetaminophen Allergy Unknown Verified 07/23/20 11:27 - Social History Does the pt smoke?: No Smoking Status: Never smoker Does the pt drink ETOH?: Yes Does the pt have substance abuse?: No - Immunizations Immunizations are current?: Yes PD ED PE EXPANDED - General General: Alert, No acute distress, Other (obese) - Cardiac Cardiac: Regular Rate, Murmur Present, Radial strong equal, Pedal strong equal, Cap refill < 2 sec - Respiratory Respiratory: Clear to ausultation [place]. No: Distress, Labored - Abdomen Abdomen: Distended (Markedly swollen nontender abdomen.). No: Tender to palpation, Rebound, Guarding - Extremities Extremities: Normal, Deformity, Pedal edema bilateral (Significant swelling and anasarca from the feet up to the lower mid abdomen including the pannus.). No: Tenderness, Limited ROM, Right calf TTP/cord, Left calf TTP/cord - Neuro Neuro: Alert and Oriented X 3, CNII-XII intact - GCS Eye Opening: Spontaneous Motor: Obeys Commands Verbal: Oriented Total: 15 Results - Vitals Vitals: Vital Signs - 24 hr 07/23/20 11:16 Temperature 36.9 C Heart Rate 84 Respiratory 16 Rate Blood Pressure 132/74 H O2 Saturation 99 Oxygen O2 Source Room air - Labs Labs: Laboratory Tests 07/23/20 07/23/20 07/23/20 12:00 12:15 12:15 WBC 8.7 RBC 3.21 L Hgb 9.9 L Hct 31.2 L MCV 97.2 H MCH 30.8 MCHC 31.7 L RDW 16.5 H Plt Count 162 MPV 9.3 Neut # (Auto) 5.6 Lymph # (Auto) 1.5 [place] # (Auto) 1.3 H Eos # (Auto) 0.3 Baso # (Auto) 0.1 Absolute Nucleated RBC 0.00 Nucleated RBC % 0.0 PT INR Sodium 133 L Potassium 4.2 Chloride 94 L Carbon Dioxide 30 Anion Gap 9.0 BUN 9 Creatinine 1.4 H Estimated GFR (MDRD) 51 L Glucose 132 H Lactic Acid Calcium 8.5 Total Bilirubin 1.2 H AST 42 ALT 21 Alkaline Phosphatase 168 H Ammonia B-Natriuretic Peptide Total Protein 6.6 L Albumin 2.5 L Globulin 4.1 Albumin/Globulin Ratio 0.6 L Lipase 39 Urine Color DARK YELLOW Urine Clarity CLEAR Urine pH 7.0 Ur Specific [place] 1.015 Urine Protein TRACE Urine Glucose (UA) NEGATIVE Urine Ketones NEGATIVE Urine Occult Blood LARGE H Urine Nitrite NEGATIVE Urine Bilirubin NEGATIVE Urine Urobilinogen 0.2 (NORMAL) Ur Leukocyte Esterase NEGATIVE Urine RBC 6-10 H Urine WBC 0-3 Ur Squamous Epith Cells RARE Squamous Urine Bacteria Few Ur Microscopic Review INDICATED Urine Culture Comments NOT INDICATED 07/23/20 07/23/20 07/23/20 12:15 12:15 12:15 WBC RBC Hgb Hct MCV MCH MCHC RDW Plt Count MPV Neut # (Auto) Lymph # (Auto) [place] # (Auto) Eos # (Auto) Baso # (Auto) Absolute Nucleated RBC Nucleated RBC % PT 15.3 H INR 1.4 H Sodium Potassium Chloride Carbon Dioxide Anion Gap BUN Creatinine Estimated GFR (MDRD) Glucose Lactic Acid 1.1 Calcium Total Bilirubin AST ALT Alkaline Phosphatase Ammonia 20.6 B-Natriuretic Peptide Total Protein Albumin Globulin Albumin/Globulin Ratio Lipase Urine Color Urine Clarity Urine pH Ur Specific [place] Urine Protein Urine Glucose (UA) Urine Ketones Urine Occult Blood Urine Nitrite Urine Bilirubin Urine Urobilinogen Ur Leukocyte Esterase Urine RBC Urine WBC Ur Squamous Epith Cells Urine Bacteria Ur Microscopic Review Urine Culture Comments 07/23/20 12:15 WBC RBC Hgb Hct MCV MCH MCHC RDW Plt Count MPV Neut # (Auto) Lymph # (Auto) [place] # (Auto) Eos # (Auto) Baso # (Auto) Absolute Nucleated RBC Nucleated RBC % PT INR Sodium Potassium Chloride Carbon Dioxide Anion Gap BUN Creatinine Estimated GFR (MDRD) Glucose Lactic Acid Calcium Total Bilirubin AST ALT Alkaline Phosphatase Ammonia B-Natriuretic Peptide 83 Total Protein Albumin Globulin Albumin/Globulin Ratio Lipase Urine Color Urine Clarity Urine pH Ur Specific [place] Urine Protein Urine Glucose (UA) Urine Ketones Urine Occult Blood Urine Nitrite Urine Bilirubin Urine Urobilinogen Ur Leukocyte Esterase Urine RBC Urine WBC Ur Squamous Epith Cells Urine Bacteria Ur Microscopic Review Urine Culture Comments PD MEDICAL DECISION MAKING - ED course Complexity details: reviewed results, re-evaluated patient, d/w patient ED course: 64-year-old male who has a history of alcohol-related cirrhosis presents to the emergency department for evaluation of worsening edema. He was recently hospitalized twice for treatment of esophageal varices bleeding and hemorrhagic shock. Currently he is taking Lasix 20 mg 1 day then 40 the next as well as spironolactone 50 mg daily. Recently discharged from the hospital just over 1 week ago. He has had increased lower extremity edema with advancement to his abdomen. He has no chest pain or shortness of air. No dyspnea. Chest x-ray is not consistent with any pneumonia. I did attempt to speak with his primary care provider office but was unable to reach them. In review of his medications as well as his liver and renal panels I will recommended that he increase his Lasix to 40 mg daily. 80 mg of Lasix was administered here in the emergency department. He is advised to have his labs repeated in 1 week to ensure renal insufficiency is not worsening. No indication today for a paracentesis. Patient has no abdominal pain respiratory distress and I have low suspicion for no suspicion for peritonitis. Patient is to return to the emergency department for worsening symptoms, fevers and dyspnea. Departure - Departure Disposition: Home, Self Care Clinical Impression: Anasarca Cirrhosis Qualifiers: Hepatic cirrhosis type: alcoholic cirrhosis Ascites presence: with ascites Qualified Code(s): K70.31 - Alcoholic cirrhosis of liver with ascites Condition: Stable Record reviewed to determine appropriate education?: Yes Instructions: ED Cirrhosis Liver Follow-Up: Kaz Newman MD [Primary Care Provider] - Prescriptions: Furosemide [Lasix] 40 mg PO DAILY #60 tablet Comments: Cole you are seen in the emergency department today for worsening lower extremity swelling and edema that now extends to your abdomen. This is a very common problem with cirrhosis. This often takes weeks to improve. I would like you to increase your dose of Lasix to 40 mg every day. Continue the spironolactone 50 mg every day. In addition to this please continue the other medications already prescribed by your jackspooler and primary care provider. Please take these medications in the morning as I would expect that you will need to remain home as you will be urinating for a few hours. It is important to have your labs rechecked in the next week to make sure that your kidney values are stable with this increased dose of diuretic. If at any point you are having increased swelling, any shortness of air, or unable to urinate or stop making urine please return immediately to the ER for a second look. Please do not miss follow-up with your primary care provider as well as your jackspooler as already scheduled.
--- OUTSIDE RECORDS SUMMARY | 2020-07-23 12:22 | EXTERNAL MEDICAL SUMMARY RPT | Continuity of Care Document ---
:1955 Demographics Phone Unavailable Preferred Language Unknown Marital Status Unknown Anabaptist Affiliation Unknown Race Unknown Ethnic Group Unknown Author Organization [facility] Address [address] [place] [address] Phone Problems date description facility [id number] [facility] [id number] syncopy [facility] [id number] [id number] [id number] [facility]syncopy [facility] [id number] [facility]syncopy [facility] [id number] active esophageal and gastric varices [facility] [id number] Gastrointestinal hemorrhage, [facility] unspecified [id number] Esophageal varices with bleeding [facility]
[2020-07-23 12:23] LABS: BASOPHILS # (AUTO) 0.1 10^3/uL (0.0-0.1); EOSINOPHILS # (AUTO) 0.3 10^3/uL (0.0-0.7); EOSINOPHILS % (AUTO) 3.3 %; HCT - HEMATOCRIT 31.2 % (42.0-52.0); HGB - HEMOGLOBIN 9.9 g/dL (14.0-18.0); LYMPHOCYTES # (AUTO) 1.5 10^3/uL (1.5-3.5); MEAN CORPUSCULAR HEMOGLOBIN 30.8 pg (27.0-31.0); MEAN CORPUSCULAR HGB CONC 31.7 g/dL (32.0-36.0); MEAN CORPUSCULAR VOLUME 97.2 fL (80.0-94.0); MEAN PLATELET VOLUME 9.3 fL (7.4-11.4); MONOCYTES # (AUTO) 1.3 10^3/uL (0.0-1.0); MONOCYTES % (AUTO) 14.4 %; NEUTROPHILS # (AUTO) 5.6 10^3/uL (1.5-6.6); NEUTROPHILS % (AUTO) 64.1 %; PLT - PLATELET COUNT 162 10^3/uL (130-450); RED BLOOD COUNT 3.21 10^6/uL (4.70-6.10); RED CELL DISTRIBUTION WIDTH 16.5 % (12.0-15.0); WHITE BLOOD COUNT 8.7 x10^3/uL (4.8-10.8)
[2020-07-23 12:28] LABS: BILIRUBIN,URINE NEGATIVE (NEGATIVE); GLUCOSE, URINE (UA) NEGATIVE (NEGATIVE); KETONES,URINE (UA) NEGATIVE (NEGATIVE); LEUKOCYTE ESTERASE, URINE NEGATIVE (NEGATIVE); NITRITE,URINE NEGATIVE (NEGATIVE); OCCULT BLOOD,URINE LARGE (NEGATIVE); PROTEIN,URINE TRACE mg/dL (NEGATIVE); UROBILINOGEN,URINE 0.2 (NORMAL) E.U./dL (NORMAL)
[2020-07-23 12:30] LABS: CLARITY,URINE CLEAR (CLEAR)
[2020-07-23 12:36] LABS: INR 1.4 (0.8-1.2); PT - PROTHROMBIN TIME 15.3 secs (9.9-12.6)
[2020-07-23 12:38] LABS: BACTERIA,URINE Few /HPF (None Seen); SQUAMOUS EPITHELIAL CELL,UR RARE Squamous (<= Few); WBC,URINE 0-3 /HPF (0-3)
[2020-07-23 12:39] LABS: ALBUMIN 2.5 g/dL (3.2-5.5); ALBUMIN/GLOBULIN RATIO 0.6 (1.0-2.2); BILIRUBIN,TOTAL 1.2 mg/dL (0.2-1.0); CALCIUM 8.5 mg/dL (8.5-10.3); CREATININE 1.4 mg/dL (0.6-1.2); POTASSIUM 4.2 mmol/L (3.5-5.0); TOTAL PROTEIN 6.6 g/dL (6.7-8.2)
--- NOTE | 2020-07-23 13:24 | XRAY Report ---
PROCEDURE: Chest 1 View X-Ray INDICATIONS: chest pain TECHNIQUE: One view of the chest was acquired. COMPARISON: 07/27/2019 and 07/09/2020 FINDINGS: Surgical changes and devices: None. Lungs and pleura: No pleural effusions or pneumothorax. Mild pulmonary vascular congestion is seen. No focal infiltrate. Mediastinum: Mediastinal contours appear normal. Heart size is enlarged. Bones and chest wall: No suspicious bony lesions. Overlying soft tissues appear unremarkable. IMPRESSION: Mild pulmonary vascular congestion. No focal infiltrate, pleural effusion or pneumothorax. Reviewed by: Vern Corrales MD on 07/23/2020 1:22 PM PDT Approved by: Vern Corrales MD on 07/23/2020 1:22 PM PDT Station ID: [id number]
[2020-07-23] MEDS ORDERED: FUROSEMIDE 40 MG/4 ML VIAL IVP STA (13:35)
[2020-07-23 13:45] VITALS: BP 144/74
== END 2020-07-23 13:56 | disposition home or self-care (01) ==
LOC: ED 11:07
DX: R60.1 Generalized edema (principal); K70.31 Alcoholic cirrhosis of liver with ascites; I10 Essential (primary) hypertension
CPT/HCPCS: 36415; 80053; 81001; 81003; 82140; 83605; 83690; 83880; 85025; 85610; 87086; 96374; 99284

== ENCOUNTER 2020-08-18 21:34 | Inpatient (IN) | payer MEDICARE ==
[2020-08-18] MEDS ORDERED: IPRATROPIUM/ALBUTEROL 3 ML NEB INH STA (22:16)
--- NOTE | 2020-08-18 22:19 | ED Physician Documentation ---
PD HPI DYSPNEA - Stated complaint Stated Complaint: SOA - Chief complaint Chief Complaint: Resp - History obtained from History obtained from: Patient, Family - Additional information Additional information: Patient comes emergency department chief complaint of dyspnea and cough for about the last 24 hours. Patient states that he feels like he "just cannot get any air". Patient denies any history of heart or lung issues. He states that after a hernia surgery about 1 year ago, he did have "water on the lungs", but was told that it was just from laying down so much. Patient states he was quite a bit more obese at that time and that he understood the trouble had been partly attributed to this. Patient states he used to smoke cigarettes many years ago but quit. He smokes pot but not every day. Patient denies any chest pain. No fevers. He states that he just feels as though he constantly needs to cough something up, but it is hard to get it out. He states that he just cannot get enough force behind the cough. No sick contacts. No other complaints at this time. Patient has been taking diuretics for some lower extremity edema that he has had for the last couple months, and this has been improving. Patient does note that he was told that he had a clot in his brachial vein after being admitted for TIPS procedure about a month and a half ago. states they were told this was "from the IV". However, patient was told he should have an ultrasound of his right arm, but states his primary care physician never followed up on this with an ultrasound order. No history of DVT/PE otherwise. Review of Systems Ten Systems: 10 systems reviewed and negative Constitutional: reports: Reviewed and negative Eyes: reports: Reviewed and negative Ears: reports: Reviewed and negative Nose: reports: Reviewed and negative Throat: reports: Reviewed and negative Cardiac: reports: Reviewed and negative Respiratory: reports: Dyspnea, Cough GI: reports: Reviewed and negative : reports: Reviewed and negative Skin: reports: Reviewed and negative Musculoskeletal: reports: Reviewed and negative Neurologic: reports: Reviewed and negative Psychiatric: reports: Reviewed and negative Endocrine: reports: Reviewed and negative Immunocompromised: reports: Reviewed and negative PD PAST MEDICAL HISTORY - Past Medical History Past Medical History: No Cardiovascular: Hypertension, Coronary artery disease Respiratory: None Neuro: None Endocrine/Autoimmune: None GI: Hiatal hernia, Cirrhosis : Kidney stones HEENT: None Psych: None Musculoskeletal: None Derm: None - Past Surgical History Past Surgical History: Yes General: Cholecystectomy, Hiatal hernia repair Ortho: Knee replacement - Present Medications Home Medications: Ambulatory Orders Medication Instructions Recorded Confirmed Levothyroxine [Synthroid] 250 mcg PO DAILY 07/27/19 08/19/20 Lactulose 30 ml PO Q6HR 07/08/20 08/19/20 Rifaximin [Xifaxan] 550 mg PO BID 07/08/20 08/19/20 Spironolactone [Aldactone] 50 mg PO DAILY 07/08/20 08/19/20 Folic Acid 1 mg PO DAILY 07/23/20 08/19/20 Furosemide [Lasix] 40 mg PO DAILY #60 tablet 07/23/20 08/19/20 Hydrocodone/Acetaminophen 1 tab PO DAILY 08/19/20 08/19/20 [Hydrocodone-Acetamin 5-300 mg] Pantoprazole Sodium 40 mg PO DAILY 08/19/20 08/19/20 - Allergies Allergies/Adverse Reactions: Allergies Allergy/AdvReac Type Severity Reaction Status Date / Time acetaminophen Allergy Unknown Verified 08/18/20 21:57 - Social History Does the pt smoke?: No Smoking Status: Never smoker Does the pt drink ETOH?: Yes Does the pt have substance abuse?: No - Immunizations Immunizations are current?: Yes PD ED PE NORMAL - Vitals Vital signs reviewed: Yes - General General: Alert and oriented X 3, No acute distress, Well developed/nourished - HEENT HEENT: Atraumatic, PERRL, EOMI, Moist mucous membranes - Neck Neck: Supple, no meningeal sign - Cardiac Cardiac: RRR, No murmur, Strong equal pulses - Respiratory Respiratory: No respiratory distress, Clear bilaterally, Other (Patient is not in respiratory distress in between coughing fits, but does have prolonged fits of hard coughing which produces a mild amount of clear sputum. He appears slightly anxious at these times, But can speak in full sentences and is without labored respirations.) - Abdomen Abdomen: Soft, Non tender, Other (Moderately obese.) - Derm Derm: Normal color, Warm and dry, No rash - Extremities Extremities: No deformity, Other (1+ pitting edema bilateral lower extremities. 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, Normal speech - Psych Psych: Normal mood, Normal affect Results - Vitals Vitals: Vital Signs - 24 hr 08/18/20 08/18/20 08/18/20 21:53 22:01 22:26 Temperature 37.3 C 37.3 C Heart Rate 89 89 13 L Respiratory 22 22 13 Rate Blood Pressure 168/74 H 168/74 H O2 Saturation 92 92 08/18/20 08/18/20 08/18/20 22:30 23:00 23:06 Temperature Heart Rate 73 85 84 Respiratory 14 20 32 H Rate Blood Pressure 160/78 H 150/80 H 113/34 L O2 Saturation 94 92 86 L 08/18/20 08/19/20 08/19/20 23:30 00:00 00:30 Temperature 36.5 C Heart Rate 84 87 89 Respiratory 16 20 27 H Rate Blood Pressure 152/60 H 153/64 H 159/67 H O2 Saturation 96 97 97 08/19/20 08/19/20 08/19/20 01:00 01:50 02:00 Temperature Heart Rate 92 99 99 Respiratory 22 32 H 30 H Rate Blood Pressure 160/58 H 172/79 H 181/87 H O2 Saturation 96 92 93 08/19/20 08/19/20 08/19/20 02:30 03:00 03:30 Temperature 36.5 C Heart Rate 99 92 92 Respiratory 28 H 25 H 23 Rate Blood Pressure 184/86 H 153/69 H 162/82 H O2 Saturation 93 96 96 Oxygen O2 Source Nasal cannula Oxygen Flow Rate 3 - EKG (time done) 2202 Rate: Rate (enter#) (97) Rhythm: NSR [place]: Normal Intervals: Normal DC Ischemia: Normal ST segments Other comments: Other comments Compare to prior EKG: Unchanged from prior EKG Computer interpretation: Agree with computer - Labs Labs: Laboratory Tests 08/18/20 08/18/20 08/18/20 22:20 22:20 22:20 WBC 11.1 H RBC 3.75 L Hgb 11.3 L Hct 34.8 L MCV 92.8 MCH 30.1 MCHC 32.5 RDW 15.3 H Plt Count 138 MPV 8.5 Neut # (Auto) Not Reportable Lymph # (Auto) Not Reportable [place] # (Auto) Not Reportable Eos # (Auto) Not Reportable Baso # (Auto) Not Reportable Absolute Nucleated RBC Not Reportable Total Counted 100 Band Neuts % (Manual) 0 Abnorm Lymph % (Manual) 0 Nucleated RBC % Not Reportable Neutrophils # (Manual) 7.0 H Lymphocytes # (Manual) 2.0 Monocytes # (Manual) 1.9 H Eosinophils # (Manual) 0.2 Basophils # (Manual) 0.0 Differential Comment MANUAL DIFFERENTIAL WBC Morphology NORMAL APPEARANCE Platelet Estimate NORMAL (130-450,000) Platelet Morphology NORMAL APPEARANCE RBC Morph Micro Appear NORMAL APPEARANCE PT 14.5 H INR 1.3 H D-Dimer > 1050.0 H Sodium 134 L Potassium 4.2 Chloride 94 L Carbon Dioxide 30 Anion Gap 10.0 BUN 12 Creatinine 1.5 H Estimated GFR (MDRD) 47 L Glucose 117 H Calcium 9.1 Total Bilirubin 0.9 AST 41 ALT 19 Alkaline Phosphatase 169 H Troponin I High Sens B-Natriuretic Peptide Total Protein 8.0 Albumin 2.8 L Globulin 5.2 H Albumin/Globulin Ratio 0.5 L Lipase 35 Nasal Adenovirus (PCR) Nasal B. parapertussis DNA (PCR) Nasal Coronavir 229E PCR Nasal Coronavir HKU1 PCR Nasal Coronavir NL63 PCR Nasal Coronavir OC43 PCR Nasal Enterovir/Rhinovir PCR Nasal Influenza B PCR Nasal Influenza A PCR Nasal Parainfluen 1 PCR Nasal Parainfluen 2 PCR Nasal Parainfluen 3 PCR Nasal Parainfluen 4 PCR Nasal RSV (PCR) Nasal B.pertussis DNA PCR Nasal C.pneumoniae (PCR) Greg Human Metapneumo PCR Nasal M.pneumoniae (PCR) Nasal SARS-CoV-2 (PCR) 08/18/20 08/18/20 08/18/20 22:20 22:20 23:54 WBC RBC Hgb Hct MCV MCH MCHC RDW Plt Count MPV Neut # (Auto) Lymph # (Auto) [place] # (Auto) Eos # (Auto) Baso # (Auto) Absolute Nucleated RBC Total Counted Band Neuts % (Manual) Abnorm Lymph % (Manual) Nucleated RBC % Neutrophils # (Manual) Lymphocytes # (Manual) Monocytes # (Manual) Eosinophils # (Manual) Basophils # (Manual) Differential Comment WBC Morphology Platelet Estimate Platelet Morphology RBC Morph Micro Appear PT INR D-Dimer Sodium Potassium Chloride Carbon Dioxide Anion Gap BUN Creatinine Estimated GFR (MDRD) Glucose Calcium Total Bilirubin AST ALT Alkaline Phosphatase Troponin I High Sens 24.8 H* 24.7 H* B-Natriuretic Peptide 84 Total Protein Albumin Globulin Albumin/Globulin Ratio Lipase Nasal Adenovirus (PCR) Nasal B. parapertussis DNA (PCR) Nasal Coronavir 229E PCR Nasal Coronavir HKU1 PCR Nasal Coronavir NL63 PCR Nasal Coronavir OC43 PCR Nasal Enterovir/Rhinovir PCR Nasal Influenza B PCR Nasal Influenza A PCR Nasal Parainfluen 1 PCR Nasal Parainfluen 2 PCR Nasal Parainfluen 3 PCR Nasal Parainfluen 4 PCR Nasal RSV (PCR) Nasal B.pertussis DNA PCR Nasal C.pneumoniae (PCR) Greg Human Metapneumo PCR Nasal M.pneumoniae (PCR) Nasal SARS-CoV-2 (PCR) 08/19/20 03:37 WBC RBC Hgb Hct MCV MCH MCHC RDW Plt Count MPV Neut # (Auto) Lymph # (Auto) [place] # (Auto) Eos # (Auto) Baso # (Auto) Absolute Nucleated RBC Total Counted Band Neuts % (Manual) Abnorm Lymph % (Manual) Nucleated RBC % Neutrophils # (Manual) Lymphocytes # (Manual) Monocytes # (Manual) Eosinophils # (Manual) Basophils # (Manual) Differential Comment WBC Morphology Platelet Estimate Platelet Morphology RBC Morph Micro Appear PT INR D-Dimer Sodium Potassium Chloride Carbon Dioxide Anion Gap BUN Creatinine Estimated GFR (MDRD) Glucose Calcium Total Bilirubin AST ALT Alkaline Phosphatase Troponin I High Sens B-Natriuretic Peptide Total Protein Albumin Globulin Albumin/Globulin Ratio Lipase Nasal Adenovirus (PCR) NOT DETECTED Nasal B. parapertussis DNA (PCR) NOT DETECTED Nasal Coronavir 229E PCR NOT DETECTED Nasal Coronavir HKU1 PCR NOT DETECTED Nasal Coronavir NL63 PCR NOT DETECTED Nasal Coronavir OC43 PCR NOT DETECTED Nasal Enterovir/Rhinovir PCR NOT DETECTED Nasal Influenza B PCR NOT DETECTED Nasal Influenza A PCR NOT DETECTED Nasal Parainfluen 1 PCR NOT DETECTED Nasal Parainfluen 2 PCR NOT DETECTED Nasal Parainfluen 3 PCR NOT DETECTED Nasal Parainfluen 4 PCR NOT DETECTED Nasal RSV (PCR) NOT DETECTED Nasal B.pertussis DNA PCR NOT DETECTED Nasal C.pneumoniae (PCR) NOT DETECTED Greg Human Metapneumo PCR NOT DETECTED Nasal M.pneumoniae (PCR) NOT DETECTED Nasal SARS-CoV-2 (PCR) NOT DETECTED - Rads (name of study) CXR Radiology: Final report received, EMP read indepedently, See rad report (RLL consolidation) CXR, post thoracentesis attempt Radiology: Final report received, Discussed with rads (no PTX), EMP read indepedently, See rad report CTA chest Radiology: Final report received, EMP read indepedently, See rad report (large R pleural effusion; no obvious PE.) PD MEDICAL DECISION MAKING - ED course Complexity details: reviewed old records, reviewed results, re-evaluated patient, considered differential, d/w patient, d/w family ED course: Patient was found to have oxygen saturation fluctuating between 88 and 93% on room air with a good waveform. He was placed on 2 L oxygen per nasal cannula and given a DuoNeb. He was worked up with labs, EKG, and chest x-ray. Labs were unremarkable., Other than a very elevated D-dimer over 1000. Troponin was mildly elevated but stable on repeat. BNP was negative. I was concerned that the patient may have a pulmonary embolism, and decided to get a CTA of his chest. This did not show any obvious PE, but did show a large right pleural effusion. The patient continued to require 3 to 4 L of oxygen per nasal cannula, and had sats on this in the low 90s. I felt that it may be beneficial for the patient to have his pleural effusion drained, and he was consented for thoracentesis. 2 attempts were made to perform this procedure with good fluid output into syringe upon placement of needle and catheter. However, no fluid was able to be obtained through the catheter on either of 2 attempts, despite good return into the syringe. At this point in time, given the patient's obesity and difficult landmarks, as well as the seemingly positional nature of the catheter, I felt it would be better if he were admitted to the hospital with plan to have an ultrasound-guided thoracentesis with radiology while admitted. I spoke with Dr. Hawkins who is the hospitalist on-call, and he agreed to admit patient to his service. Departure - Departure Disposition: 66 [facility] DC/Xfer Clinical Impression: Pleural effusion, Hypoxia Condition: Serious Discharge Date/Time: 08/19/20 04:10
[2020-08-18 22:29] LABS: BASOPHILS % (AUTO) 0.8 %; EOSINOPHILS % (AUTO) 3.1 %; HCT - HEMATOCRIT 34.8 % (42.0-52.0); HGB - HEMOGLOBIN 11.3 g/dL (14.0-18.0); LYMPHOCYTES % (AUTO) 16.4 %; MEAN CORPUSCULAR HEMOGLOBIN 30.1 pg (27.0-31.0); MEAN CORPUSCULAR HGB CONC 32.5 g/dL (32.0-36.0); MEAN CORPUSCULAR VOLUME 92.8 fL (80.0-94.0); MEAN PLATELET VOLUME 8.5 fL (7.4-11.4); MONOCYTES % (AUTO) 14.4 %; NEUTROPHILS % (AUTO) 65.1 %; PLT - PLATELET COUNT 138 10^3/uL (130-450); RED BLOOD COUNT 3.75 10^6/uL (4.70-6.10); RED CELL DISTRIBUTION WIDTH 15.3 % (12.0-15.0); WHITE BLOOD COUNT 11.1 x10^3/uL (4.8-10.8)
[2020-08-18 22:32] LABS: ABNORMAL LYMPHS % (MANUAL) 0 %; BAND NEUTROPHILS % (MANUAL) 0 %
[2020-08-18 22:36] LABS: INR 1.3 (0.8-1.2); PT - PROTHROMBIN TIME 14.5 secs (9.9-12.6)
[2020-08-18 22:40] LABS: ALBUMIN 2.8 g/dL (3.2-5.5); ALBUMIN/GLOBULIN RATIO 0.5 (1.0-2.2); BILIRUBIN,TOTAL 0.9 mg/dL (0.2-1.0); CALCIUM 9.1 mg/dL (8.5-10.3); CREATININE 1.5 mg/dL (0.6-1.2); POTASSIUM 4.2 mmol/L (3.5-5.0)
[2020-08-18 22:42] LABS: D-DIMER > 1050.0 ng/mL (200.0-255.0)
[2020-08-18 22:56] LABS: EOSINOPHILS # (MANUAL) 0.2 10^3/uL (0-0.7); LYMPHOCYTES % (MANUAL) 18 %; MONOCYTES # (MANUAL) 1.9 10^3/uL (0.0-1.0)
[2020-08-18 22:57] LABS: PLATELET ESTIMATE, MANUAL NORMAL (130-450,000) (NORMAL); PLATELET MORPHOLOGY NORMAL APPEARANCE (NORMAL); RBC MORPHOLOGY (MULTIPLE) NORMAL APPEARANCE (NORMAL)
[2020-08-18 22:58] LABS: DIFFERENTIAL COMMENT MANUAL DIFFERENTIAL; WBC MORPHOLOGY (MULTIPLE) NORMAL APPEARANCE (NORMAL)
[2020-08-18] MEDS ORDERED: LORazepam 2 MG/ML VIAL IVP STA (23:42)
[2020-08-18] MEDS ORDERED: IOVERSOL 320 100 ML VIAL IVP ONE (23:48)
[2020-08-19] MEDS ORDERED: IOVERSOL 320 100 ML VIAL IVP ONE (00:39)
[2020-08-19] MEDS ORDERED: FUROSEMIDE 40 MG/4 ML VIAL IVP STA (03:53)
--- NOTE | 2020-08-19 04:01 | HISTORY & PHYSICAL EXAMINATION ---
Chief Complaint - Chief Complaint Chief Complaint: dyspnea History of Present Illness - Admitted From Admitted From:: [facility] ED - History Obtained From Records Reviewed: yes History obtained from: patient - History of Present Illness HPI Comment/Other: Patient is a 65-year-old male with medical history significant for hypertension, hypothyroidism, coronary artery disease, alcohol abuse with alcoholic liver cirrhosis status post TIPS procedure recently who presented to the ED today with difficulty breathing. His symptoms started last night. He denied any chest pain, abdominal pain, fever or chills he reports some nausea and vomiting. Work-up in the ED included a CT scan which showed a large right-sided pleural effusion. In the ED he was also hypoxic with oxygen saturation between 86 and 88%. He required 4 L of oxygen to get his oxygen saturation into the mid 90s. Due to his body habitus which is obese attempts at bedside thoracentesis in the ED was unsuccessful. As a result he was presented for admission for thoracentesis by radiology. At bedside he appears comfortable but mildly dyspneic. He has crackles in the lung bases on the left. Breath sounds are diminished on the right. He has lower extremity edema which is nonpitting. History - Past Medical History Cardiovascular: reports: Hypertension, Coronary artery disease Respiratory: reports: None Neuro: reports: None Endocrine/Autoimmune: reports: None GI: reports: Hiatal hernia, Cirrhosis : reports: Kidney stones HEENT: reports: None Psych: reports: None Musculoskeletal: reports: None Derm: reports: None MRSA Hx?: No - Past Surgical History General: reports: Cholecystectomy, Hiatal hernia repair, Other (TIPS procedure) Ortho: reports: Knee replacement - Family & Social History Family History Comment/Other: He denies any significant family history Living arrangement: At home Living Situation: With spouse/s.o. Social History Notes: He lives at home with his . He does not use tobacco products. He uses marijuana. He has history of alcohol abuse. He is to drink up to 1/5 of vodka daily. He reports his last drink was 2 weeks ago. - POLST Patient has POLST: No POLST Status: Full Code Meds/Allgy - Home Medications Home Medications: Ambulatory Orders Medication Instructions Recorded Confirmed Levothyroxine [Synthroid] 250 mcg PO DAILY 07/27/19 07/23/20 Lactulose 30 ml PO Q6HR 07/08/20 07/23/20 Rifaximin [Xifaxan] 550 mg PO BID 07/08/20 07/08/20 Spironolactone [Aldactone] 50 mg PO DAILY 07/08/20 07/23/20 Folic Acid 1 mg PO DAILY 07/23/20 07/23/20 Furosemide [Lasix] 40 mg PO DAILY #60 tablet 07/23/20 Hydrocodone/Acetaminophen 1 tab PO DAILY 08/19/20 08/19/20 [Hydrocodone-Acetamin 5-300 mg] Pantoprazole Sodium 40 mg PO DAILY 08/19/20 08/19/20 - Allergies Allergies/Adverse Reactions: Allergies Allergy/AdvReac Type Severity Reaction Status Date / Time acetaminophen Allergy Unknown Verified 08/18/20 21:57 Review of Systems - Constitutional Constitutional: reports: Chills. denies: Fever - Eyes Eyes: denies: Pain - Ears, Nose & Throat Ears, Nose & Throat: denies: Ear pain - Cardiovascular Cariovascular: reports: Edema. denies: Chest pain, Lightheadedness, Syncope, Exertional dyspnea - Respiratory Respiratory: reports: SOB at rest. denies: Cough, Sputum production, Wheezing - Gastrointestinal Gastrointestinal: reports: Abdominal distention, Nausea, Vomiting, Re flux/heartburn. denies: Abdominal pain, Constipation - Genitourinary Genitourinary: denies: Dysuria, Frequency, Urgency, Hematuria - Musculoskeletal Musculoskeletal: denies: Muscle pain, Back pain - Integumentary Integumentary: denies: Rash, Pruritis, Lesions - Neurological Neurological: denies: General weakness, Focal weakness, Headache, Dizziness - Psychiatric Psychiatric: denies: Depression, Anxiety - Endocrine Endocrine: denies: Polyuria, Polydypsia - Hematologic/Lymphatic Hematologic/Lymphatic: denies: Anemia, Bruising Prior Level of Functionality: He is independent of activities of daily living Exam - Vital Signs Vital Signs: Vital Signs x48h Temp Pulse Resp BP Pulse Ox 08/19/20 03:30 36.5 C 92 23 162/82 H 96 08/19/20 03:00 92 25 H 153/69 H 96 08/19/20 02:30 99 28 H 184/86 H 93 08/19/20 02:00 99 30 H 181/87 H 93 08/19/20 01:50 99 32 H 172/79 H 92 08/19/20 01:00 92 22 160/58 H 96 08/19/20 00:30 89 27 H 159/67 H 97 08/19/20 00:00 36.5 C 87 20 153/64 H 97 08/18/20 23:30 84 16 152/60 H 96 08/18/20 23:06 84 32 H 113/34 L 86 L 08/18/20 23:00 85 20 150/80 H 92 08/18/20 22:30 73 14 160/78 H 94 08/18/20 22:26 13 L 13 08/18/20 22:01 37.3 C 89 22 168/74 H 92 08/18/20 21:53 37.3 C 89 22 168/74 H 92 - Physical Exam General Appearance: positive: Alert, Mild distress Eyes Bilateral: positive: PERRL, EOMI ENT: positive: No signs of dehydration Neck: positive: No JVD, Trachea midline Respiratory: positive: Chest non-tender, Other (Mild crackles in the left lung bases. Diminished breath sounds on the right.). negative: Wheezes Cardiovascular: positive: Regular rate & rhythm, No murmur Abdomen: positive: Non-tender, Nml bowel sounds. negative: Guarding, Rebound Back: positive: Nml inspection Skin: positive: Color nml, No rash, Warm, Dry Extremities: positive: Non-tender, Pedal edema (nonpitting) Neurologic/Psychiatric: positive: Oriented x3, Mood/affect nml Conclusion/Plan - Problem List (1) Pleural effusion Conclusion/Plan: Large right-sided pleural effusion. Attempt at a thoracentesis in the ED was unsuccessful. IR consulted for CT/ultrasound-guided thoracentesis. Lasix 40 mg IV x1 given. Patient is on supplemental oxygen currently. (2) Cirrhosis Conclusion/Plan: Patient recently underwent a TIPS procedure at [facility]. Patient was given Lasix 40 mg IV x1. We will continue Lasix 40 mg p.o. daily Lactulose 30 mils p.o. every 6 hours Spironolactone 50 mg p.o. daily. He was also recently transferred to [facility] from the ED for GI bleed. We will continue Protonix 40 mg p.o. daily Qualifiers: Hepatic cirrhosis type: alcoholic cirrhosis Ascites presence: with ascites Qualified Code(s): K70.31 - Alcoholic cirrhosis of liver with ascites (3) Hypothyroidism Conclusion/Plan: On Synthroid 250 mcg p.o. daily. Will resume after that this has been verified by pharmacy. - Lab Results Fish Bones: 08/18/20 22:20 08/18/20 22:20 Core Measures - Anticipated LOS I expect patient to be DC'd or transferred within 96 hours.: Yes - DVT/VTE - Prophylaxis VTE/DVT Device ordered at admit?: Yes
[2020-08-19] MEDS: SODIUM CHLORIDE FLUSH 0.9% 10 ML SYRINGE IVP PRN (04:36)
[2020-08-19 04:37] LABS: B. PARAPERTUSSIS- RESP PCR PAN NOT DETECTED; B. PERTUSSIS- RESP PCR PANEL NOT DETECTED; C. PNEUMONIAE- RESP PCR PANEL NOT DETECTED; CORONAVIRUS 229E-RESP PCR NOT DETECTED; CORONAVIRUS HKU1-RESP PCR NOT DETECTED; CORONAVIRUS NL63-RESP PCR NOT DETECTED; CORONAVIRUS OC43-RESP PCR NOT DETECTED; HUMAN METAPNEUMOVIRUS NOT DETECTED; INFLUENZA A- RESP PCR PANEL NOT DETECTED; INFLUENZA B - RESP PCR PANEL NOT DETECTED; M. PNEUMONIAE- RESP PCR PANEL NOT DETECTED; PARAINFLUENZA VIRUS 1 NOT DETECTED; PARAINFLUENZA VIRUS 2 NOT DETECTED; PARAINFLUENZA VIRUS 3 NOT DETECTED; PARAINFLUENZA VIRUS 4 NOT DETECTED; RHINOVIRUS/ENTEROVIRUS NOT DETECTED; RSV- RESP PCR PANEL NOT DETECTED; SARS-CoV-2 -RESP PCR PANEL NOT DETECTED
[2020-08-19 06:00] LABS: BASOPHILS % (AUTO) 0.8 %; EOSINOPHILS % (AUTO) 2.8 %; HCT - HEMATOCRIT 34.2 % (42.0-52.0); LYMPHOCYTES % (AUTO) 14.4 %; MEAN CORPUSCULAR HEMOGLOBIN 30.1 pg (27.0-31.0); MEAN CORPUSCULAR HGB CONC 32.2 g/dL (32.0-36.0); MEAN CORPUSCULAR VOLUME 93.4 fL (80.0-94.0); MEAN PLATELET VOLUME 8.9 fL (7.4-11.4); MONOCYTES % (AUTO) 15.8 %; NEUTROPHILS % (AUTO) 65.9 %; PLT - PLATELET COUNT 120 10^3/uL (130-450); RED BLOOD COUNT 3.66 10^6/uL (4.70-6.10); RED CELL DISTRIBUTION WIDTH 15.2 % (12.0-15.0); WHITE BLOOD COUNT 9.5 x10^3/uL (4.8-10.8)
[2020-08-19] MEDS ORDERED: LACTULOSE 10 GM PO SCH (06:00)
[2020-08-19] MEDS: PANTOPRAZOLE 40 MG TABLET PO SCH (06:02)
[2020-08-19] MEDS: HYDROcod/ACETAM 5/325 MG TABLET PO PRN ×3 (06:02→18:50)
[2020-08-19] MEDS: LACTULOSE 10 GM /15 ML UDC PO SCH ×4 (06:02→22:53)
[2020-08-19 06:09] LABS: CALCIUM 8.8 mg/dL (8.5-10.3); CREATININE 1.4 mg/dL (0.6-1.2)
[2020-08-19 06:18] LABS: ABNORMAL LYMPHS % (MANUAL) 0 %; BAND NEUTROPHILS % (MANUAL) 0 %
[2020-08-19 06:24] LABS: EOSINOPHILS # (MANUAL) 0.4 10^3/uL (0-0.7); LYMPHOCYTES # (MANUAL) 1.3 10^3/uL (1.5-3.5); LYMPHOCYTES % (MANUAL) 14 %; MONOCYTES # (MANUAL) 1.6 10^3/uL (0.0-1.0); NEUTROPHILS # (MANUAL) 6.2 10^3/uL (1.5-6.6); PLATELET ESTIMATE, MANUAL DECREASED (<130,000) (NORMAL); PLATELET MORPHOLOGY NORMAL APPEARANCE (NORMAL); RBC MORPHOLOGY (MULTIPLE) NORMAL APPEARANCE (NORMAL); WBC MORPHOLOGY (MULTIPLE) NORMAL APPEARANCE (NORMAL)
[2020-08-19 06:25] LABS: DIFFERENTIAL COMMENT MANUAL DIFFERENTIAL
[2020-08-19] MEDS: rifAXIMin 550 MG TABLET PO SCH ×2 (08:29→21:21)
[2020-08-19] MEDS: FOLIC ACID 1 MG TABLET PO SCH (08:29)
[2020-08-19] MEDS: SPIRONOLACTONE 25 MG TABLET PO SCH (08:30)
[2020-08-19] MEDS: SODIUM CHLORIDE FLUSH 0.9% 10 ML SYRINGE IVP SCH ×2 (08:30→17:12)
--- NOTE | 2020-08-19 08:44 | CT Report ---
PROCEDURE: ANGIO CHEST W/WO INDICATIONS: dyspnea, hypoxia, elevated d-dimer CONTRAST: IV CONTRAST: Optiray 320 ml: 100 PO CONTRAST: *NO PO CONTRAST TECHNIQUE: After the administration of intravenous contrast, 2 mm thick sections acquired from the pulmonary api evelio to the posterior costophrenic angles. 3-dimensional maximum intensity projection (MIP) coronal a nd sagittal reformats were then acquired through the thorax. For radiation dose reduction, the follow ing was used: automated exposure control, adjustment of mA and/or kV according to patient size. COMPARISON: Chest plain films and CT angiogram FINDINGS: Image quality: Excellent. Pulmonary arteries: Pulmonary arteries are normal in size, and demonstrate no intraluminal filling d efects to suggest central pulmonary embolism. Quality of opacification of the pulmonary arteries is reduced and the contrast bolus is left heart predominance. The pulmonary arteries are visualized to t he degree that presence of a large central pulmonary embolus be identified. Smaller more peripheral p ulmonary emboli would not. The pleural effusion on the right produces compressive atelectasis of the right mid and lower lung. Lungs and pleura: Lungs are clear. No left-sided pleural effusions or pneumothorax but there is a m oderately large right pleural effusion. Central and peripheral airways are patent. Mediastinum: Heart size is normal, without pericardial effusion. No mediastinal or hilar adenopathy . Thoracic aorta is normal in caliber and enhancement. Esophagus is normal in caliber, without hiat al hernia. Bones and chest wall: No suspicious bony lesions. Ribs and thoracic spine appear intact throughout. No axillary or supraclavicular adenopathy. The thyroid is normal in size and there are no incident al findings. Abdomen: Visualized upper abdominal solid organs appear abnormal in the early arterial phase of enha ncement. There is a TIPS shunt within the liver, and the liver is small and nodular in its marginati on consistent with chronic cirrhosis. The spleen where visualized is enlarged. There is ascites withi n the peritoneal space that is moderate in severity. IMPRESSION: 1. No pulmonary embolus found. As noted above the phase of contrast enhancement through the heart and pulmonary arteries is suboptimal for detection of mid and peripheral pulmonary emboli. 2. Moderately large right pleural effusion with adjacent compressive atelectasis through the mid and lower right lung posteriorly. 3. Cirrhosis with evidence of portal hypertension and moderate ascites. Cirrhosis also likely is rela jocelyn to the moderately large right pleural effusion. Tips shunt in place. Splenomegaly. Reviewed by: Hal Coley MD on 08/19/2020 8:42 AM PDT Approved by: Hal Coley MD on 08/19/2020 8:42 AM PDT Station ID: [id number]
[2020-08-19] MEDS ORDERED: RIFAXIMIN 200 MG PO SCH (09:00)
[2020-08-19] MEDS ORDERED: SPIRONOLACTONE 50 MG PO SCH (09:00)
--- NOTE | 2020-08-19 09:18 | PHARMACY PROGRESS NOTE ---
- Best Possible Medication History Admit Date and Time: 08/19/20 0344 Processed by: Nursing Medication History completed: Yes Patient Interview: Completed (MED REC COMPLETED BY NURSING) As the person ultimately responsible for medication therapy, providers are able to order a medication from an existing home medication list in [facility] via the "Reconcile Routine" prior to Confirmation of that medication by client support coordinator. Such practice is discouraged except when the physician, in their clinical judgment, deems that a medical need exists for a medication without regard to previous use.
--- NOTE | 2020-08-19 09:34 | XRAY Report ---
PROCEDURE: Chest 1 View X-Ray INDICATIONS: Chest Pain TECHNIQUE: One view of the chest was acquired. COMPARISON: Chest x-ray 07/23/2020, CT chest 08/19/2020, FINDINGS: Surgical changes and devices: None. Lungs and pleura: There is increased right basilar opacity. Blunting of the costophrenic angle is pre sent. This is new compared to prior chest x-ray. Mediastinum: Mediastinal contours appear normal. Heart size is normal. Bones and chest wall: No suspicious bony lesions. Overlying soft tissues appear unremarkable. IMPRESSION: Increased right basilar opacity suggestive of effusion. Underlying areas of pneumonia, atelectasis or mass lesion cannot be excluded. Recommend interval follow-up to document resolution. Report Reviewed by: Sanna Arciniega MD on 08/19/2020 9:32 AM PDT Approved by: Sanna Arciniega MD on 08/19/2020 9:32 AM PDT Station ID: [id number]
--- NOTE | 2020-08-19 09:41 | XRAY Report ---
PROCEDURE: Chest 1 View X-Ray INDICATIONS: chest pain TECHNIQUE: One view of the chest was acquired. COMPARISON: CT chest 08/18/2020 chest x-ray 08/18/2020 FINDINGS: Surgical changes and devices: None. Lungs and pleura: Persistent, increased right basilar opacity compared to prior exam. Mediastinum: Mediastinal contours appear normal. Heart size is mildly prominent. Bones and chest wall: No suspicious bony lesions. Overlying soft tissues appear unremarkable. IMPRESSION: Increased appearance of right basilar opacity suggestive of developing effusion. Underlying areas of pneumonia and/or atelectasis cannot be definitively excluded. The above findings are concordant with preliminary report. Reviewed by: Sanna Arciniega MD on 08/19/2020 9:39 AM PDT Approved by: Sanna Arciniega MD on 08/19/2020 9:39 AM PDT Station ID: [id number]
--- NOTE | 2020-08-19 13:27 | Ultrasound Report ---
PROCEDURE: Thoracentesis Puncture INDICATIONS: large right pleural effusion TECHNIQUE: The indications, alternatives, benefits, risks, and complications of the procedure were explained to the patient. Written informed consent was obtained and placed in the chart. The chest was examined sonographically, and an appropriate site was chosen for thoracentesis. The skin was prepared and luz ped in the usual sterile fashion, and 1% lidocaine was infiltrated from the skin down through the ple ural surface. A 19-gauge catheter-covered needle was then advanced, but could not be positioned in t he pleural space due to patient size. The catheter was then removed and a dressing was applied. COMPARISON: None. FINDINGS: Access site: Right hemithorax. Needle: One-Step centesis catheter with introducer needle. Fluid volume and description: Not applicable Fluid sent for diagnostic testing: Not applicable Medications: 1% lidocaine for local anaesthesia. Complications: None; post-procedural chest radiograph is pending to assess for pneumothorax. IMPRESSION: Unsuccessful ultrasound-guided thoracentesis. Thoracentesis needle lacks sufficient lengt h to reach the pleural space due to patient body habitus. No immediate complications. Reviewed by: Zainab Myrick MD, PhD on 08/19/2020 1:26 PM PDT Approved by: Zainab Myrick MD, PhD on 08/19/2020 1:26 PM PDT Station ID: [id number]
[2020-08-20] MEDS: SODIUM CHLORIDE FLUSH 0.9% 10 ML SYRINGE IVP SCH ×3 (00:55→16:46)
[2020-08-20] MEDS: HYDROcod/ACETAM 5/325 MG TABLET PO PRN ×3 (00:55→20:19)
[2020-08-20 05:37] LABS: BASOPHILS # (AUTO) 0.1 10^3/uL (0.0-0.1); BASOPHILS % (AUTO) 0.9 %; EOSINOPHILS # (AUTO) 0.3 10^3/uL (0.0-0.7); HCT - HEMATOCRIT 36.3 % (42.0-52.0); HGB - HEMOGLOBIN 11.3 g/dL (14.0-18.0); LYMPHOCYTES # (AUTO) 1.5 10^3/uL (1.5-3.5); MEAN CORPUSCULAR HEMOGLOBIN 29.7 pg (27.0-31.0); MEAN CORPUSCULAR HGB CONC 31.1 g/dL (32.0-36.0); MEAN CORPUSCULAR VOLUME 95.3 fL (80.0-94.0); MONOCYTES # (AUTO) 1.3 10^3/uL (0.0-1.0); MONOCYTES % (AUTO) 12.5 %; NEUTROPHILS # (AUTO) 6.8 10^3/uL (1.5-6.6); NEUTROPHILS % (AUTO) 68.2 %; PLT - PLATELET COUNT 132 10^3/uL (130-450); RED BLOOD COUNT 3.81 10^6/uL (4.70-6.10); RED CELL DISTRIBUTION WIDTH 15.1 % (12.0-15.0)
[2020-08-20 05:48] LABS: CALCIUM 8.7 mg/dL (8.5-10.3); CREATININE 1.3 mg/dL (0.6-1.2); POTASSIUM 4.3 mmol/L (3.5-5.0)
[2020-08-20] MEDS: ONDANSETRON 4 MG/2 ML VIAL IVP PRN (06:22)
[2020-08-20] MEDS: PANTOPRAZOLE 40 MG TABLET PO SCH (06:28)
[2020-08-20] MEDS: LACTULOSE 10 GM /15 ML UDC PO SCH ×4 (06:29→23:04)
[2020-08-20] MEDS: SPIRONOLACTONE 25 MG TABLET PO SCH (08:53)
[2020-08-20] MEDS: LEVOTHYROXINE 125 MCG TABLET PO SCH (08:54)
[2020-08-20] MEDS: rifAXIMin 550 MG TABLET PO SCH ×2 (08:56→20:19)
[2020-08-20] MEDS: FOLIC ACID 1 MG TABLET PO SCH (08:56)
[2020-08-20] MEDS ORDERED: FUROSEMIDE 20 MG TABLET PO SCH (09:00)
[2020-08-20 11:49] LABS: INR 1.3 (0.8-1.2); PT - PROTHROMBIN TIME 14.4 secs (9.9-12.6)
[2020-08-20] MEDS: FERROUS GLUCONATE 324 MG TABLET PO SCH ×2 (12:00→18:28)
[2020-08-20] MEDS ORDERED: BUFFERED LIDOCAINE 10 ML SYRINGE ONE (15:01)
--- NOTE | 2020-08-20 15:44 | PROVIDER PROGRESS NOTE ---
Assessment/Plan - Problem List (1) Respiratory failure with hypoxia Assessment/Plan: pt need 3 liter of O2 to remain 92% sats. Patient had large right pleural effusion. Patient was taken 2760 cc fluids from thoracentesis. CTA of the chest show no PE found. Patient has no fever, WBC in the normal range. CTA and chest x-ray does not indicate patient has infection Or pneumonia. BNP was 83 on yesterday, will repeat BNP now. We will continue home Lasix and spironolactone, will order ECHO. Supplemental oxygen as needed. Hopefully after large pleural effusion was removed, patient's shortness breathing was subsided (2) Pleural effusion Conclusion/Plan: Large right-sided pleural effusion.Patient was taken 2760 cc fluids from thoracentesis. Patient has hx of hepatic failure. it is more likely the cause to have large pleural effusion. cell count, fluid culture are pending. (3) alcoholic hepatic failure Patient has a history of alcoholic hepatic failure. Patient recently underwent a TIPS procedure at [facility]. CTA show patient had portal hypertension. Ultrasound of the abdomen show small ascites. Since patient is alert and orientated, we will home Lactulose 30 mils p.o. every 6 hours. He was also recently transferred to [facility] from the ED for GI bleed with Portal hypertension, We will continue Protonix 40 mg p.o. daily, Hold blood thinner. (4) Hypothyroidism Conclusion/Plan: TSH is normal arrange, continue On Synthroid 250 mcg p.o. daily. - Current Meds Current Meds: Current Medications Generic Name Dose Route Start Last Admin Trade Name Freq PRN Reason Stop Dose Admin Hydrocodone Bitart/Acetaminophen 1 tab 08/19/20 05:20 08/20/20 08:52 Hydrocod/Acetam 5/325 Mg Tablet PO 1 tab Q6HR PRN Administration PAIN Ferrous Gluconate 324 mg 08/20/20 12:00 08/20/20 12:00 Ferrous Gluconate 324 Mg Tablet PO Not Given 1200 SANDI Folic Acid 1 mg 08/19/20 09:00 08/20/20 08:56 Folic Acid 1 Mg Tablet PO 1 mg DAILY SANDI Administration Furosemide 40 mg 08/20/20 09:00 08/20/20 08:56 Furosemide 20 Mg Tablet PO 40 mg DAILY SANDI Administration Lactulose 20 gm 08/19/20 05:00 08/20/20 11:22 Lactulose 10 Gm /15 Ml Udc PO 20 gm Q6H SANDI Administration Levothyroxine Sodium 250 mcg 08/20/20 08:30 08/20/20 08:54 Levothyroxine 125 Mcg Tablet PO 250 mcg QDAC SANDI Administration Ondansetron HCl 4 mg 08/20/20 06:04 08/20/20 06:22 Ondansetron 4 Mg/2 Ml Vial IVP 4 mg Q4HR PRN Administration Nausea / Vomiting Pantoprazole Sodium 40 mg 08/19/20 07:00 08/20/20 06:28 Pantoprazole 40 Mg Tablet PO 40 mg 0700 SANDI Administration Rifaximin 550 mg 08/19/20 09:00 08/20/20 08:56 Rifaximin 550 Mg Tablet PO 550 mg BID SANDI Administration Sodium Chloride 10 ml 08/19/20 03:44 08/19/20 04:36 Sodium Chloride Flush 0.9% 10 Ml Syringe IVP 10 ml PRN PRN Administration NEEDED PER PROVIDER ORDERS Sodium Chloride 10 ml 08/19/20 09:00 08/20/20 09:18 Sodium Chloride Flush 0.9% 10 Ml Syringe IVP 10 ml 0100,0900,1700 SANDI Administration Spironolactone 50 mg 08/19/20 09:00 08/20/20 08:53 Spironolactone 25 Mg Tablet PO 50 mg DAILY SANDI Administration - Lab Result Fish Bone Diagrams: 08/20/20 05:27 08/20/20 05:27 - Additional Planning My Orders: My Active Orders 08/20/20 Social Work Consult [CONS] Routine 08/20/20 08:30 Levothyroxine [Synthroid] 250 mcg PO QDAC 08/20/20 09:10 Thoracentesis Puncture [US] Stat 08/20/20 12:00 Ferrous Gluconate [Fergon] 324 mg PO 1200 08/20/20 16:00 Vitamin [Trinatal Rx 1] 1 tab PO DAILYWM 08/21/20 09:00 Lactobacillus Rhamnosus GG [Culturelle] 1 cap PO DAILY Subjective - Subjective Patient Reports: Shortness of Breath Objective Vital Signs: Vital Signs - 24 hr 08/19/20 08/19/20 08/20/20 16:01 21:00 00:55 Temperature 36.5 C 36.7 C 36.7 C Heart Rate [ 85 92 88 Brachial] Respiratory 18 18 18 Rate Blood Pressure 151/60 H 162/63 H 177/75 H [Right Brachial artery] O2 Saturation 98 93 95 08/20/20 08/20/20 08/20/20 04:31 07:40 12:00 Temperature 36.5 C 36.5 C 36.7 C Heart Rate [ 86 97 98 Brachial] Respiratory 18 18 18 Rate Blood Pressure 154/61 H 148/52 H 157/72 H [Right Brachial artery] O2 Saturation 96 94 92 Oxygen O2 Source Nasal cannula Oxygen Flow Rate 3 I&O (Last 24 Hrs): Intake and Output Totals x24h 08/18/20 08/19/20 08/20/20 23:59 23:59 23:59 Intake Total 450 Output Total 4 2860 Balance 446 -2860 General: Alert, Oriented x3, Cooperative, No acute distress HEENT: Atraumatic, PERRLA Neck: Supple Lymphatic: no adenopathy Neuro: Alert, Non Focal, Oriented Times 3 Cardiovascular: Regular rate, Normal S1, Normal S2 Respiratory: Chest non-tender, No respiratory distress Abdomen: Normal bowel sounds, Soft Extremities: Normal pulses - Results Results: Laboratory Results WBC 10.0 x10^3/uL (4.8-10.8) 08/20/20 05:27 RBC 3.81 10^6/uL (4.70-6.10) L 08/20/20 05:27 Hgb 11.3 g/dL (14.0-18.0) L 08/20/20 05:27 Hct 36.3 % (42.0-52.0) L 08/20/20 05:27 MCV 95.3 fL (80.0-94.0) H 08/20/20 05:27 MCH 29.7 pg (27.0-31.0) 08/20/20 05:27 MCHC 31.1 g/dL (32.0-36.0) L 08/20/20 05:27 RDW 15.1 % (12.0-15.0) H 08/20/20 05:27 Plt Count 132 10^3/uL (130-450) 08/20/20 05:27 MPV 9.0 fL (7.4-11.4) 08/20/20 05:27 Neut # (Auto) 6.8 10^3/uL (1.5-6.6) H 08/20/20 05:27 Lymph # (Auto) 1.5 10^3/uL (1.5-3.5) 08/20/20 05:27 Tompkins # (Auto) 1.3 10^3/uL (0.0-1.0) H 08/20/20 05:27 Eos # (Auto) 0.3 10^3/uL (0.0-0.7) 08/20/20 05:27 Baso # (Auto) 0.1 10^3/uL (0.0-0.1) 08/20/20 05:27 Absolute Nucleated RBC 0.00 x10^3/uL 08/20/20 05:27 Total Counted 100 08/19/20 05:43 Band Neuts % (Manual) 0 % (0-10) 08/19/20 05:43 Abnorm Lymph % (Manual) 0 % 08/19/20 05:43 Nucleated RBC % 0.0 /100WBC 08/20/20 05:27 Neutrophils # (Manual) 6.2 10^3/uL (1.5-6.6) 08/19/20 05:43 Lymphocytes # (Manual) 1.3 10^3/uL (1.5-3.5) L 08/19/20 05:43 Monocytes # (Manual) 1.6 10^3/uL (0.0-1.0) H 08/19/20 05:43 Eosinophils # (Manual) 0.4 10^3/uL (0-0.7) 08/19/20 05:43 Basophils # (Manual) 0.0 10^3/uL (0-0.1) 08/19/20 05:43 Differential Comment MANUAL DIFFERENTIAL 08/19/20 05:43 WBC Morphology NORMAL APPEARANCE (NORMAL) 08/19/20 05:43 Platelet Estimate DECREASED (<130,000) (NORMAL) 08/19/20 05:43 Platelet Morphology NORMAL APPEARANCE (NORMAL) 08/19/20 05:43 RBC Morph Micro Appear NORMAL APPEARANCE (NORMAL) 08/19/20 05:43 PT 14.4 secs (9.9-12.6) H 08/20/20 11:32 INR 1.3 (0.8-1.2) H 08/20/20 11:32 D-Dimer > 1050.0 ng/mL (200.0-255.0) H 08/18/20 22:20 Sodium 133 mmol/L (135-145) L 08/20/20 05:27 Potassium 4.3 mmol/L (3.5-5.0) 08/20/20 05:27 Chloride 94 mmol/L (101-111) L 08/20/20 05:27 Carbon Dioxide 33 mmol/L (21-32) H 08/20/20 05:27 Anion Gap 6.0 (6-13) 08/20/20 05:27 BUN 12 mg/dL (6-20) 08/20/20 05:27 Creatinine 1.3 mg/dL (0.6-1.2) H 08/20/20 05:27 Estimated GFR (MDRD) 55 (>89) L 08/20/20 05:27 Glucose 108 mg/dL (70-100) H 08/20/20 05:27 Calcium 8.7 mg/dL (8.5-10.3) 08/20/20 05:27 Magnesium 1.9 mg/dL (1.7-2.8) 08/20/20 05:27 Total Bilirubin 0.9 mg/dL (0.2-1.0) 08/18/20 22:20 AST 41 IU/L (10-42) 08/18/20 22:20 ALT 19 IU/L (10-60) 08/18/20 22:20 Alkaline Phosphatase 169 IU/L (42-121) H 08/18/20 22:20 Troponin I High Sens 26.9 ng/L (2.3-19.7) H* 08/20/20 08:41 B-Natriuretic Peptide 84 pg/mL (5-100) 08/18/20 22:20 Total Protein 8.0 g/dL (6.7-8.2) 08/18/20 22:20 Albumin 2.8 g/dL (3.2-5.5) L 08/18/20 22:20 Globulin 5.2 g/dL (2.1-4.2) H 08/18/20 22:20 Albumin/Globulin Ratio 0.5 (1.0-2.2) L 08/18/20 22:20 Lipase 35 U/L (22-51) 08/18/20 22:20 TSH 0.43 uIU/mL (0.34-5.60) 08/20/20 05:27 Nasal Adenovirus (PCR) NOT DETECTED 08/19/20 03:37 Nasal B. parapertussis DNA (PCR) NOT DETECTED 08/19/20 03:37 Nasal Coronavir 229E PCR NOT DETECTED 08/19/20 03:37 Nasal Coronavir HKU1 PCR NOT DETECTED 08/19/20 03:37 Nasal Coronavir NL63 PCR NOT DETECTED 08/19/20 03:37 Nasal Coronavir OC43 PCR NOT DETECTED 08/19/20 03:37 Nasal Enterovir/Rhinovir PCR NOT DETECTED 08/19/20 03:37 Nasal Influenza B PCR NOT DETECTED 08/19/20 03:37 Nasal Influenza A PCR NOT DETECTED 08/19/20 03:37 Nasal Parainfluen 1 PCR NOT DETECTED 08/19/20 03:37 Nasal Parainfluen 2 PCR NOT DETECTED 08/19/20 03:37 Nasal Parainfluen 3 PCR NOT DETECTED 08/19/20 03:37 Nasal Parainfluen 4 PCR NOT DETECTED 08/19/20 03:37 Nasal RSV (PCR) NOT DETECTED 08/19/20 03:37 Nasal B.pertussis DNA PCR NOT DETECTED 08/19/20 03:37 Nasal C.pneumoniae (PCR) NOT DETECTED 08/19/20 03:37 Greg Human Metapneumo PCR NOT DETECTED 08/19/20 03:37 Nasal M.pneumoniae (PCR) NOT DETECTED 08/19/20 03:37 Nasal SARS-CoV-2 (PCR) NOT DETECTED 08/19/20 03:37 ABX Reporting Has patient been on IV antibiotics over the past 48 hours?: No Current Medications - Current Medications Current Medications: Active Medications Hydrocodone Bitart/Acetaminophen (Hydrocod/Acetam 5/325 Mg Tablet) 1 tab PO Q6HR PRN PRN Reason: PAIN Last Admin: 08/20/20 08:52 Dose: 1 tab Documented by: Ferrous Gluconate (Ferrous Gluconate 324 Mg Tablet) 324 mg PO 1200 SANDI Last Admin: 08/20/20 12:00 Dose: Not Given Documented by: Folic Acid (Folic Acid 1 Mg Tablet) 1 mg PO DAILY SANDI Last Admin: 08/20/20 08:56 Dose: 1 mg Documented by: Furosemide (Furosemide 40 Mg/4 Ml Vial) 40 mg IVP BIDDIURETIC [facility] Lactobacillus Rhamnosus (Lactobacillus Rhamnosus Gg Capsule) 1 cap PO DAILY [facility] Lactulose (Lactulose 10 Gm /15 Ml Udc) 20 gm PO Q6H [facility] Last Admin: 08/20/20 11:22 Dose: 20 gm Documented by: Levothyroxine Sodium (Levothyroxine 125 Mcg Tablet) 250 mcg PO QDAC [facility] Last Admin: 08/20/20 08:54 Dose: 250 mcg Documented by: Ondansetron HCl (Ondansetron 4 Mg/2 Ml Vial) 4 mg IVP Q4HR PRN PRN Reason: Nausea / Vomiting Last Admin: 08/20/20 06:22 Dose: 4 mg Documented by: Pantoprazole Sodium (Pantoprazole 40 Mg Tablet) 40 mg PO 0700 [facility] Last Admin: 08/20/20 06:28 Dose: 40 mg Documented by: Multivit/Folic Acid/Iron ( Vitamin Tablet) 1 tab PO DAILYWM [facility] Rifaximin (Rifaximin 550 Mg Tablet) 550 mg PO BID [facility] Last Admin: 08/20/20 08:56 Dose: 550 mg Documented by: Sodium Chloride (Sodium Chloride Flush 0.9% 10 Ml Syringe) 10 ml IVP PRN PRN PRN Reason: NEEDED PER PROVIDER ORDERS Last Admin: 08/19/20 04:36 Dose: 10 ml Documented by: Sodium Chloride (Sodium Chloride Flush 0.9% 10 Ml Syringe) 10 ml IVP 0100,0900,1700 [facility] Last Admin: 08/20/20 09:18 Dose: 10 ml Documented by: Spironolactone (Spironolactone 25 Mg Tablet) 50 mg PO DAILY [facility] Last Admin: 08/20/20 08:53 Dose: 50 mg Documented by: Levothyroxine [Synthroid] 250 mcg PO DAILY 07/27/19 Lactulose 15 ml PO Q6HR 07/08/20 Rifaximin [Xifaxan] 550 mg PO BID 07/08/20 Spironolactone [Aldactone] 50 mg PO DAILY 07/08/20 Folic Acid 1 mg PO DAILY 07/23/20 Cholecalciferol (Vitamin D3) [Vitamin D3] 1,000 mcg PO DAILY 08/19/20 Ferrous Gluconate 324 mg PO DAILY 08/19/20 Multivitamin 1 tablet PO DAILY 08/19/20 Pantoprazole Sodium 40 mg PO DAILY 08/19/20
--- NOTE | 2020-08-20 15:48 | XRAY Report ---
PROCEDURE: Post Thoracentesis 1V CXR INDICATIONS: THORACENTESIS/SOA TECHNIQUE: One view of the chest was acquired. COMPARISON: 08/19/2020 FINDINGS: Surgical changes and devices: None. Lungs and pleura: Significant interval decrease in size of right pleural effusion with small residual effusion but. Streaky bibasilar opacities compatible with atelectasis. Mild diffuse interstitial pro minence of the right mid and lower lung zone likely related to lung reexpansion changes. No new focal consolidations. No pneumothorax seen. Mediastinum: Mediastinal contours appear stable. Heart size is stable. Bones and chest wall: No suspicious bony lesions. Overlying soft tissues appear unremarkable. IMPRESSION: Significant interval decrease in size of right pleural effusion. Small amount of residual right pleur al effusion post thoracentesis. No pneumothorax seen. Remainder of the cardiopulmonary examination is not significantly changed. Reviewed by: Flo Delaney MD on 08/20/2020 3:46 PM PDT Approved by: Flo Delaney MD on 08/20/2020 3:46 PM PDT Station ID: [id number]
--- NOTE | 2020-08-20 16:16 | Ultrasound Report ---
PROCEDURE: Thoracentesis Puncture INDICATIONS: right large pleural effusion TECHNIQUE: The indications, alternatives, benefits, risks, and complications of the procedure were explained to the patient. Written informed consent was obtained and placed in the chart. The chest was examined sonographically, and an appropriate site was chosen for thoracentesis. The skin was prepared and luz ped in the usual sterile fashion, and 1% lidocaine was infiltrated from the skin down through the ple ural surface. A 19-gauge catheter-covered needle was then introduced into the pleural space, the cat heter was advanced and the needle was withdrawn, and thereafter pleural fluid was aspirated. The cat heter was then removed and a dressing was applied. COMPARISON: Chest radiograph from 08/19/2020 FINDINGS: Access site: Right hemithorax. Needle: One-Step centesis catheter with introducer needle. Fluid volume and description: 2.7 cm of clear, ashok pleural fluid Fluid sent for diagnostic testin mL were sent for diagnostic testing Medications: 1% lidocaine for local anaesthesia. Complications: None; post-procedural chest radiograph is pending to assess for pneumothorax. IMPRESSION: Successful ultrasound-guided thoracentesis. Reviewed by: Flo Delaney MD on 08/20/2020 4:14 PM PDT Approved by: Flo Delaney MD on 08/20/2020 4:14 PM PDT Station ID: [id number]
[2020-08-20 16:30] LABS: BF CLARITY HAZY; BF COLOR YELLOW; BF SOURCE PLEURAL; CC,BF RBC 3000 /mm^3; CC,BF WBC 435 /mm^3
[2020-08-20] MEDS ORDERED: FUROSEMIDE 40 MG/4 ML VIAL IVP SCH ×2 (17:00)
[2020-08-20] MEDS: PRENATAL VITAMIN TABLET PO SCH (18:28)
[2020-08-20] MEDS: SODIUM CHLORIDE FLUSH 0.9% 10 ML SYRINGE IVP PRN (20:21)
[2020-08-21] MEDS: SODIUM CHLORIDE FLUSH 0.9% 10 ML SYRINGE IVP SCH ×4 (00:36→14:19)
[2020-08-21] MEDS: HYDROcod/ACETAM 5/325 MG TABLET PO PRN ×4 (02:26→23:02)
[2020-08-21 04:52] LABS: BASOPHILS # (AUTO) 0.1 10^3/uL (0.0-0.1); BASOPHILS % (AUTO) 0.8 %; EOSINOPHILS # (AUTO) 0.3 10^3/uL (0.0-0.7); EOSINOPHILS % (AUTO) 2.2 %; HCT - HEMATOCRIT 31.8 % (42.0-52.0); HGB - HEMOGLOBIN 9.6 g/dL (14.0-18.0); LYMPHOCYTES # (AUTO) 1.3 10^3/uL (1.5-3.5); LYMPHOCYTES % (AUTO) 11.7 %; MEAN CORPUSCULAR HEMOGLOBIN 29.4 pg (27.0-31.0); MEAN CORPUSCULAR HGB CONC 30.2 g/dL (32.0-36.0); MEAN CORPUSCULAR VOLUME 97.5 fL (80.0-94.0); MEAN PLATELET VOLUME 9.2 fL (7.4-11.4); MONOCYTES # (AUTO) 1.3 10^3/uL (0.0-1.0); MONOCYTES % (AUTO) 11.5 %; NEUTROPHILS # (AUTO) 8.3 10^3/uL (1.5-6.6); NEUTROPHILS % (AUTO) 73.4 %; PLT - PLATELET COUNT 119 10^3/uL (130-450); RED BLOOD COUNT 3.26 10^6/uL (4.70-6.10); RED CELL DISTRIBUTION WIDTH 14.9 % (12.0-15.0); WHITE BLOOD COUNT 11.3 x10^3/uL (4.8-10.8)
[2020-08-21 05:04] LABS: CALCIUM 8.7 mg/dL (8.5-10.3); CREATININE 1.4 mg/dL (0.6-1.2); POTASSIUM 4.7 mmol/L (3.5-5.0)
[2020-08-21] MEDS: PANTOPRAZOLE 40 MG TABLET PO SCH (06:01)
[2020-08-21] MEDS: LACTULOSE 10 GM /15 ML UDC PO SCH ×4 (06:01→23:02)
[2020-08-21] MEDS: FUROSEMIDE 40 MG/4 ML VIAL IVP SCH ×2 (06:01→14:16)
[2020-08-21] MEDS: LEVOTHYROXINE 125 MCG TABLET PO SCH (06:02)
[2020-08-21] MEDS: SPIRONOLACTONE 25 MG TABLET PO SCH (08:53)
[2020-08-21] MEDS: rifAXIMin 550 MG TABLET PO SCH ×2 (08:54→20:40)
[2020-08-21] MEDS: LACTOBACILLUS RHAMNOSUS GG CAPSULE PO SCH (08:54)
[2020-08-21] MEDS: PRENATAL VITAMIN TABLET PO SCH (08:54)
[2020-08-21] MEDS: FOLIC ACID 1 MG TABLET PO SCH (08:55)
--- NOTE | 2020-08-21 08:57 | XRAY Report ---
PROCEDURE: Chest 1 View X-Ray INDICATIONS: shortness of breathing TECHNIQUE: One view of the chest was acquired. COMPARISON: Chest plain film after right-sided thoracentesis one day ago reviewed. FINDINGS: Surgical changes and devices: None. Lungs and pleura: No left-sided pleural effusions or postthoracentesis right-sided pneumothorax. A small subpulmonic right effusion remains. Alveolar consolidation at the right lower lung is again see n. Left lung remains clear. Mediastinum: Mediastinal contours appear normal. Heart size is normal. Bones and chest wall: No suspicious bony lesions. Overlying soft tissues appear unremarkable. IMPRESSION: No pneumothorax after right-sided thoracentesis. Small residual subpulmonic right effusion, moderate pneumonia remains right mid and lower lung. Slight lateral left lung base alveolar infiltration also. Reviewed by: Hal Coley MD on 08/21/2020 8:55 AM PDT Approved by: Hal Coley MD on 08/21/2020 8:55 AM PDT Station ID: [id number]
[2020-08-21] MEDS: cefTRIAXone 2 GM in SODIUM CHLORIDE 0.9% MINIBAG 100 ML IV SCH (10:05)
[2020-08-21] MEDS: AZITHROMYCIN INJ 500 MG in SODIUM CHLORIDE 0.9% 250 ML IV SCH (11:04)
--- NOTE | 2020-08-21 13:40 | PROVIDER PROGRESS NOTE ---
Assessment/Plan - Problem List (1) Respiratory failure with hypoxia Assessment/Plan: 08/21 clinically pt report he feel better, less shortness of breath after he came back from bathroom. Now patient had 93% sats on 2 L of oxygen, patient did not take oxygen in the home before the admission. Patient also had elevated WBC, chest x-ray show patient had pneumonia at right middle and low lobe lung. We will treat with antibiotics for patient, Supplemental oxygen as needed. pt need 3 liter of O2 to remain 92% sats. Patient had large right pleural effusion. Patient was taken 2760 cc fluids from thoracentesis. CTA of the chest show no PE found. Patient has no fever, WBC in the normal range. CTA and chest x-ray does not indicate patient has infection Or pneumonia. BNP was 83 on yesterday, will repeat BNP now. We will continue home Lasix and spironolactone, will order ECHO. Supplemental oxygen as needed. Hopefully after large pleural effusion was removed, patient's shortness breathing was subsided (2)pneumonia 08/21 pt present hypoxia, and Need oxygen to support her oxygen saturation, chest x-ray show patient had pneumonia at right middle and low lobe lung. We will treat with antibiotics for patient, Supplemental oxygen as needed. (3) Pleural effusion and pulmonary vascular congestion Conclusion/Plan: 08/21 pt's BNP is slight improved, pt did feel better for his SOB on today. Patient was taken 2760 cc fluids from thoracentesis from his right lung. ECHO is still pending, we will continue Lasix, continue lab and vital monitor Large right-sided pleural effusion.Patient was taken 2760 cc fluids from thoracentesis. Patient has hx of hepatic failure. it is more likely the cause to have large pleural effusion. cell count, fluid culture are pending. (4) alcoholic hepatic failure Patient has a history of alcoholic hepatic failure. Patient recently underwent a TIPS procedure at [facility]. CTA show patient had portal hypertension. Ultrasound of the abdomen show small ascites. Since patient is alert and orientated, we will home Lactulose 30 mils p.o. every 6 hours. He was also recently transferred to [facility] from the ED for GI bleed with Portal hypertension, We will continue Protonix 40 mg p.o. daily, Hold blood thinner. (5) Hypothyroidism Conclusion/Plan: TSH is normal arrange, continue On Synthroid 250 mcg p.o. daily. - Current Meds Current Meds: Current Medications Generic Name Dose Route Start Last Admin Trade Name Freq PRN Reason Stop Dose Admin Hydrocodone Bitart/Acetaminophen 1 tab 08/19/20 05:20 08/21/20 11:04 Hydrocod/Acetam 5/325 Mg Tablet PO 1 tab Q6HR PRN Administration PAIN Ferrous Gluconate 324 mg 08/20/20 12:00 08/20/20 18:28 Ferrous Gluconate 324 Mg Tablet PO 324 mg 1200 SANDI Administration Folic Acid 1 mg 08/19/20 09:00 08/21/20 08:55 Folic Acid 1 Mg Tablet PO 1 mg DAILY SANDI Administration Furosemide 40 mg 08/21/20 06:00 08/21/20 06:01 Furosemide 40 Mg/4 Ml Vial IVP 40 mg BIDDIURETIC SANDI Administration Azithromycin 500 mg/ Sodium 250 mls @ 250 mls/hr 08/21/20 10:00 08/21/20 1 1:04 Chloride IV 08/23/20 09:59 250 mls/hr DAILY SANDI Administration Ceftriaxone Sodium 2 gm/ 100 mls @ 200 mls/hr 08/21/20 10:00 08/21/20 10:40 Sodium Chloride IV 08/25/20 09:29 Infused DAILY SANDI Infusion Lactobacillus Rhamnosus 1 cap 08/21/20 09:00 08/21/20 08:54 Lactobacillus Rhamnosus Gg Capsule PO 1 cap DAILY SANDI Administration Lactulose 20 gm 08/19/20 05:00 08/21/20 11:05 Lactulose 10 Gm /15 Ml Udc PO 20 gm Q6H SANDI Administration Levothyroxine Sodium 250 mcg 08/20/20 08:30 08/21/20 06:02 Levothyroxine 125 Mcg Tablet PO 250 mcg QDAC SANDI Administration Ondansetron HCl 4 mg 08/20/20 06:04 08/20/20 06:22 Ondansetron 4 Mg/2 Ml Vial IVP 4 mg Q4HR PRN Administration Nausea / Vomiting Pantoprazole Sodium 40 mg 08/19/20 07:00 08/21/20 06:01 Pantoprazole 40 Mg Tablet PO 40 mg 0700 SANDI Administration Multivit/Folic Acid/Iron 1 tab 08/20/20 16:00 08/21/20 08:54 Vitamin Tablet PO 1 tab DAILYWM SANDI Administration Rifaximin 550 mg 08/19/20 09:00 08/21/20 08:54 Rifaximin 550 Mg Tablet PO 550 mg BID SANDI Administration Sodium Chloride 10 ml 08/19/20 03:44 08/20/20 20:21 Sodium Chloride Flush 0.9% 10 Ml Syringe IVP 10 ml PRN PRN Administration NEEDED PER PROVIDER ORDERS Sodium Chloride 10 ml 08/19/20 09:00 08/21/20 10:05 Sodium Chloride Flush 0.9% 10 Ml Syringe IVP 10 ml 0100,0900,1700 SANDI Administration Spironolactone 50 mg 08/19/20 09:00 08/21/20 08:53 Spironolactone 25 Mg Tablet PO 50 mg DAILY SANDI Administration - Lab Result Fish Bone Diagrams: 08/21/20 04:25 08/21/20 04:25 - Additional Planning My Orders: My Active Orders 08/20/20 15:15 CUL,BODY FLUID(AEROBIC) [RM] Stat 08/20/20 16:00 Vitamin [Trinatal Rx 1] 1 tab PO DAILYWM 08/20/20 Dinner Regular Diet [DIET] 08/21/20 Evaluate and Treat OT [OT] Routine Evaluate and Treat PT [PT] Routine 08/21/20 06:00 FUROSEMIDE INJ 40mg VIAL [LASIX INJ 40 mg VIAL] 40 mg IVP BIDDIURETIC 08/21/20 07:56 Out of bed 3+ hours today [RC] TID 08/21/20 09:00 Lactobacillus Rhamnosus GG [Culturelle] 1 cap PO DAILY 08/21/20 10:00 Azithromycin Inj [Zithromax Inj] 500 mg Sodium Chloride 0.9% [Normal Saline 0.9%] 250 ml IV DAILY cefTRIAXone [Rocephin] 2 gm Sodium Chloride 0.9% Minibag [Normal Saline 0.9% Minibag] 100 ml IV DAILY 08/21/20 15:44 Echo Transthoracic Complete [ECHO] Routine Subjective - Subjective Patient Reports: Feeling Better Objective Vital Signs: Vital Signs - 24 hr 08/20/20 08/20/20 08/20/20 16:07 20:16 23:56 Temperature 36.6 C 37.2 C 36.8 C Heart Rate [ 96 95 86 Brachial] Respiratory 16 16 18 Rate Blood Pressure 145/77 H 135/47 H 125/43 L [Right Brachial artery] O2 Saturation 93 94 97 08/21/20 08/21/20 08/21/20 04:57 08:51 10:51 Temperature 36.6 C 36.8 C Heart Rate [ 85 82 Brachial] Respiratory 16 20 Rate Blood Pressure 132/48 H 147/62 H [Right Brachial artery] O2 Saturation 95 93 91 L 08/21/20 12:46 Temperature 36.4 C L Heart Rate [ 85 Brachial] Respiratory 24 Rate Blood Pressure 131/62 H [Right Brachial artery] O2 Saturation 93 Oxygen O2 Source Nasal cannula Oxygen Flow Rate 3 I&O (Last 24 Hrs): Intake and Output Totals x24h 08/19/20 08/20/20 08/21/20 23:59 23:59 23:59 Intake Total 450 630 900 Output Total 4 3110 Balance 446 -2480 900 General: Alert, Oriented x3, Cooperative, No acute distress HEENT: Atraumatic Neck: Supple Lymphatic: no adenopathy Neuro: Alert, Non Focal, Oriented Times 3 Cardiovascular: Regular rate, Normal S1, Normal S2 Respiratory: Chest non-tender, No respiratory distress Abdomen: Normal bowel sounds, Soft Extremities: Normal pulses - Results Results: Laboratory Results WBC 11.3 x10^3/uL (4.8-10.8) H 08/21/20 04:25 RBC 3.26 10^6/uL (4.70-6.10) L 08/21/20 04:25 Hgb 9.6 g/dL (14.0-18.0) L 08/21/20 04:25 Hct 31.8 % (42.0-52.0) L 08/21/20 04:25 MCV 97.5 fL (80.0-94.0) H 08/21/20 04:25 MCH 29.4 pg (27.0-31.0) 08/21/20 04:25 MCHC 30.2 g/dL (32.0-36.0) L 08/21/20 04:25 RDW 14.9 % (12.0-15.0) 08/21/20 04:25 Plt Count 119 10^3/uL (130-450) L 08/21/20 04:25 MPV 9.2 fL (7.4-11.4) 08/21/20 04:25 Neut # (Auto) 8.3 10^3/uL (1.5-6.6) H 08/21/20 04:25 Lymph # (Auto) 1.3 10^3/uL (1.5-3.5) L 08/21/20 04:25 [place] # (Auto) 1.3 10^3/uL (0.0-1.0) H 08/21/20 04:25 Eos # (Auto) 0.3 10^3/uL (0.0-0.7) 08/21/20 04:25 Baso # (Auto) 0.1 10^3/uL (0.0-0.1) 08/21/20 04:25 Absolute Nucleated RBC 0.00 x10^3/uL 08/21/20 04:25 Total Counted 100 08/19/20 05:43 Band Neuts % (Manual) 0 % (0-10) 08/19/20 05:43 Abnorm Lymph % (Manual) 0 % 08/19/20 05:43 Nucleated RBC % 0.0 /100WBC 08/21/20 04:25 Neutrophils # (Manual) 6.2 10^3/uL (1.5-6.6) 08/19/20 05:43 Lymphocytes # (Manual) 1.3 10^3/uL (1.5-3.5) L 08/19/20 05:43 Monocytes # (Manual) 1.6 10^3/uL (0.0-1.0) H 08/19/20 05:43 Eosinophils # (Manual) 0.4 10^3/uL (0-0.7) 08/19/20 05:43 Basophils # (Manual) 0.0 10^3/uL (0-0.1) 08/19/20 05:43 Differential Comment MANUAL DIFFERENTIAL 08/19/20 05:43 WBC Morphology NORMAL APPEARANCE (NORMAL) 08/19/20 05:43 Platelet Estimate DECREASED (<130,000) (NORMAL) 08/19/20 05:43 Platelet Morphology NORMAL APPEARANCE (NORMAL) 08/19/20 05:43 RBC Morph Micro Appear NORMAL APPEARANCE (NORMAL) 08/19/20 05:43 PT 14.4 secs (9.9-12.6) H 08/20/20 11:32 INR 1.3 (0.8-1.2) H 08/20/20 11:32 D-Dimer > 1050.0 ng/mL (200.0-255.0) H 08/18/20 22:20 Sodium 136 mmol/L (135-145) 08/21/20 04:25 Potassium 4.7 mmol/L (3.5-5.0) 08/21/20 04:25 Chloride 93 mmol/L (101-111) L 08/21/20 04:25 Carbon Dioxide 38 mmol/L (21-32) H 08/21/20 04:25 Anion Gap 5.0 (6-13) L 08/21/20 04:25 BUN 13 mg/dL (6-20) 08/21/20 04:25 Creatinine 1.4 mg/dL (0.6-1.2) H 08/21/20 04:25 Estimated GFR (MDRD) 51 (>89) L 08/21/20 04:25 Glucose 131 mg/dL (70-100) H 08/21/20 04:25 Calcium 8.7 mg/dL (8.5-10.3) 08/21/20 04:25 Magnesium 1.9 mg/dL (1.7-2.8) 08/20/20 05:27 Total Bilirubin 0.9 mg/dL (0.2-1.0) 08/18/20 22:20 AST 41 IU/L (10-42) 08/18/20 22:20 ALT 19 IU/L (10-60) 08/18/20 22:20 Alkaline Phosphatase 169 IU/L (42-121) H 08/18/20 22:20 Troponin I High Sens 26.9 ng/L (2.3-19.7) H* 08/20/20 08:41 B-Natriuretic Peptide 143 pg/mL (5-100) H 08/21/20 04:25 Total Protein 8.0 g/dL (6.7-8.2) 08/18/20 22:20 Albumin 2.8 g/dL (3.2-5.5) L 08/18/20 22:20 Globulin 5.2 g/dL (2.1-4.2) H 08/18/20 22:20 Albumin/Globulin Ratio 0.5 (1.0-2.2) L 08/18/20 22:20 Lipase 35 U/L (22-51) 08/18/20 22:20 TSH 0.43 uIU/mL (0.34-5.60) 08/20/20 05:27 Fluid Source PLEURAL 08/20/20 15:15 Fluid Color YELLOW 08/20/20 15:15 Fluid Clarity HAZY 08/20/20 15:15 Fluid WBC 435 /mm^3 08/20/20 15:15 Fluid RBC 3000 /mm^3 08/20/20 15:15 Fluid Neutrophils % 9.0 % 08/20/20 15:15 Fluid Lymphocytes % 20.0 % 08/20/20 15:15 Fluid Monocytes % 8.0 % 08/20/20 15:15 Fluid Macrophages % 33.0 % 08/20/20 15:15 Fld Mesothelial Cell % 30.0 % 08/20/20 15:15 Nasal Adenovirus (PCR) NOT DETECTED 08/19/20 03:37 Nasal B. parapertussis DNA (PCR) NOT DETECTED 08/19/20 03:37 Nasal Coronavir 229E PCR NOT DETECTED 08/19/20 03:37 Nasal Coronavir HKU1 PCR NOT DETECTED 08/19/20 03:37 Nasal Coronavir NL63 PCR NOT DETECTED 08/19/20 03:37 Nasal Coronavir OC43 PCR NOT DETECTED 08/19/20 03:37 Nasal Enterovir/Rhinovir PCR NOT DETECTED 08/19/20 03:37 Nasal Influenza B PCR NOT DETECTED 08/19/20 03:37 Nasal Influenza A PCR NOT DETECTED 08/19/20 03:37 Nasal Parainfluen 1 PCR NOT DETECTED 08/19/20 03:37 Nasal Parainfluen 2 PCR NOT DETECTED 08/19/20 03:37 Nasal Parainfluen 3 PCR NOT DETECTED 08/19/20 03:37 Nasal Parainfluen 4 PCR NOT DETECTED 08/19/20 03:37 Nasal RSV (PCR) NOT DETECTED 08/19/20 03:37 Nasal B.pertussis DNA PCR NOT DETECTED 08/19/20 03:37 Nasal C.pneumoniae (PCR) NOT DETECTED 08/19/20 03:37 Greg Human Metapneumo PCR NOT DETECTED 08/19/20 03:37 Nasal M.pneumoniae (PCR) NOT DETECTED 08/19/20 03:37 Nasal SARS-CoV-2 (PCR) NOT DETECTED 08/19/20 03:37 ABX Reporting Has patient been on IV antibiotics over the past 48 hours?: Yes Current Medications - Current Medications Current Medications: Active Medications Hydrocodone Bitart/Acetaminophen (Hydrocod/Acetam 5/325 Mg Tablet) 1 tab PO Q6HR PRN PRN Reason: PAIN Last Admin: 08/21/20 11:04 Dose: 1 tab Documented by: Ferrous Gluconate (Ferrous Gluconate 324 Mg Tablet) 324 mg PO 1200 [facility] Last Admin: 08/20/20 18:28 Dose: 324 mg Documented by: Folic Acid (Folic Acid 1 Mg Tablet) 1 mg PO DAILY [facility] Last Admin: 08/21/20 08:55 Dose: 1 mg Documented by: Furosemide (Furosemide 40 Mg/4 Ml Vial) 40 mg IVP BIDDIURETIC [facility] Last Admin: 08/21/20 06:01 Dose: 40 mg Documented by: Azithromycin 500 mg/ Sodium (Chloride) 250 mls @ 250 mls/hr IV DAILY [facility] Stop: 08/23/20 09:59 Last Admin: 08/21/20 11:04 Dose: 250 mls/hr Documented by: Ceftriaxone Sodium 2 gm/ (Sodium Chloride) 100 mls @ 200 mls/hr IV DAILY [facility] Stop: 08/25/20 09:29 Last Infusion: 08/21/20 10:40 Dose: Infused Documented by: Lactobacillus Rhamnosus (Lactobacillus Rhamnosus Gg Capsule) 1 cap PO DAILY [facility] Last Admin: 08/21/20 08:54 Dose: 1 cap Documented by: Lactulose (Lactulose 10 Gm /15 Ml Udc) 20 gm PO Q6H [facility] Last Admin: 08/21/20 11:05 Dose: 20 gm Documented by: Levothyroxine Sodium (Levothyroxine 125 Mcg Tablet) 250 mcg PO QDAC [facility] Last Admin: 08/21/20 06:02 Dose: 250 mcg Documented by: Ondansetron HCl (Ondansetron 4 Mg/2 Ml Vial) 4 mg IVP Q4HR PRN PRN Reason: Nausea / Vomiting Last Admin: 08/20/20 06:22 Dose: 4 mg Documented by: Pantoprazole Sodium (Pantoprazole 40 Mg Tablet) 40 mg PO 0700 [facility] Last Admin: 08/21/20 06:01 Dose: 40 mg Documented by: Multivit/Folic Acid/Iron ( Vitamin Tablet) 1 tab PO DAILYWM [facility] Last Admin: 08/21/20 08:54 Dose: 1 tab Documented by: Rifaximin (Rifaximin 550 Mg Tablet) 550 mg PO BID [facility] Last Admin: 08/21/20 08:54 Dose: 550 mg Documented by: Sodium Chloride (Sodium Chloride Flush 0.9% 10 Ml Syringe) 10 ml IVP PRN PRN PRN Reason: NEEDED PER PROVIDER ORDERS Last Admin: 08/20/20 20:21 Dose: 10 ml Documented by: Sodium Chloride (Sodium Chloride Flush 0.9% 10 Ml Syringe) 10 ml IVP 0100, 0900,1700 [facility] Last Admin: 08/21/20 10:05 Dose: 10 ml Documented by: Spironolactone (Spironolactone 25 Mg Tablet) 50 mg PO DAILY [facility] Last Admin: 08/21/20 08:53 Dose: 50 mg Documented by: Levothyroxine [Synthroid] 250 mcg PO DAILY 07/27/19 Lactulose 15 ml PO Q6HR 07/08/20 Rifaximin [Xifaxan] 550 mg PO BID 07/08/20 Spironolactone [Aldactone] 50 mg PO DAILY 07/08/20 Folic Acid 1 mg PO DAILY 07/23/20 Cholecalciferol (Vitamin D3) [Vitamin D3] 1,000 mcg PO DAILY 08/19/20 Ferrous Gluconate 324 mg PO DAILY 08/19/20 Multivitamin 1 tablet PO DAILY 08/19/20 Pantoprazole Sodium 40 mg PO DAILY 08/19/20
[2020-08-21] MEDS: FERROUS GLUCONATE 324 MG TABLET PO SCH (14:15)
[2020-08-22] MEDS: SODIUM CHLORIDE FLUSH 0.9% 10 ML SYRINGE IVP SCH ×3 (00:09→23:59)
[2020-08-22 05:36] LABS: BASOPHILS # (AUTO) 0.1 10^3/uL (0.0-0.1); EOSINOPHILS # (AUTO) 0.3 10^3/uL (0.0-0.7); EOSINOPHILS % (AUTO) 3.1 %; HCT - HEMATOCRIT 32.2 % (42.0-52.0); HGB - HEMOGLOBIN 9.8 g/dL (14.0-18.0); LYMPHOCYTES # (AUTO) 1.2 10^3/uL (1.5-3.5); LYMPHOCYTES % (AUTO) 12.5 %; MEAN CORPUSCULAR HEMOGLOBIN 29.3 pg (27.0-31.0); MEAN CORPUSCULAR HGB CONC 30.4 g/dL (32.0-36.0); MEAN CORPUSCULAR VOLUME 96.1 fL (80.0-94.0); MONOCYTES # (AUTO) 1.4 10^3/uL (0.0-1.0); MONOCYTES % (AUTO) 15.3 %; NEUTROPHILS # (AUTO) 6.3 10^3/uL (1.5-6.6); NEUTROPHILS % (AUTO) 67.7 %; PLT - PLATELET COUNT 113 10^3/uL (130-450); RED BLOOD COUNT 3.35 10^6/uL (4.70-6.10); RED CELL DISTRIBUTION WIDTH 14.6 % (12.0-15.0); WHITE BLOOD COUNT 9.3 x10^3/uL (4.8-10.8)
[2020-08-22 05:39] LABS: CALCIUM 8.8 mg/dL (8.5-10.3); CREATININE 1.4 mg/dL (0.6-1.2); POTASSIUM 4.5 mmol/L (3.5-5.0)
[2020-08-22] MEDS: LACTULOSE 10 GM /15 ML UDC PO SCH ×2 (06:03→11:42)
[2020-08-22] MEDS: PANTOPRAZOLE 40 MG TABLET PO SCH (06:03)
[2020-08-22] MEDS: LEVOTHYROXINE 125 MCG TABLET PO SCH (06:03)
[2020-08-22] MEDS: ONDANSETRON 4 MG/2 ML VIAL IVP PRN (07:06)
[2020-08-22] MEDS ORDERED: ACETAMINOPHEN 325 MG TABLET PO PRN (07:41)
[2020-08-22] MEDS: PRENATAL VITAMIN TABLET PO SCH (08:31)
[2020-08-22] MEDS: LACTOBACILLUS RHAMNOSUS GG CAPSULE PO SCH (08:31)
[2020-08-22] MEDS: FOLIC ACID 1 MG TABLET PO SCH (08:31)
[2020-08-22] MEDS: FUROSEMIDE 40 MG/4 ML VIAL IVP SCH ×2 (08:31→14:04)
[2020-08-22] MEDS: SPIRONOLACTONE 25 MG TABLET PO SCH (08:31)
[2020-08-22] MEDS: cefTRIAXone 2 GM in SODIUM CHLORIDE 0.9% MINIBAG 100 ML IV SCH (08:31)
[2020-08-22] MEDS: rifAXIMin 550 MG TABLET PO SCH ×2 (08:35→21:14)
[2020-08-22] MEDS ORDERED: FUROSEMIDE 40 MG TABLET PO SCH (09:00)
[2020-08-22] MEDS: AZITHROMYCIN INJ 500 MG in SODIUM CHLORIDE 0.9% 250 ML IV SCH (09:13)
[2020-08-22] MEDS: FERROUS GLUCONATE 324 MG TABLET PO SCH (11:42)
--- NOTE | 2020-08-22 12:41 | PROVIDER PROGRESS NOTE ---
Assessment/Plan - Problem List (1) Respiratory failure with hypoxia Assessment/Plan: 08/22 Patient had a 95% sats on 3 L of oxygen. pt did not take O2 at home. we will wane down O2 dosage as pt tolerated. Continue treat underlying pneumonia, pulmonary congestion With diuretics. 08/21 clinically pt report he feel better, less shortness of breath after he came back from bathroom. Now patient had 93% sats on 2 L of oxygen, patient did not take oxygen in the home before the admission. Patient also had elevated WBC, chest x-ray show patient had pneumonia at right middle and low lobe lung. We will treat with antibiotics for patient, Supplemental oxygen as needed. pt need 3 liter of O2 to remain 92% sats. Patient had large right pleural effusion. Patient was taken 2760 cc fluids from thoracentesis. CTA of the chest show no PE found. Patient has no fever, WBC in the normal range. CTA and chest x-ray does not indicate patient has infection Or pneumonia. BNP was 83 on yester day, will repeat BNP now. We will continue home Lasix and spironolactone, will order ECHO. Supplemental oxygen as needed. Hopefully after large pleural effusion was removed, patient's shortness breathing was subsided (2)pneumonia 08/22 WBC down to the normal range, Patient report his breathing is better. We will continue his azithromycin and Rocephin to treat her pneumonia, Supplemental oxygen as needed 08/21 pt present hypoxia, and Need oxygen to support her oxygen saturation, chest x-ray show patient had pneumonia at right middle and low lobe lung. We will treat with antibiotics for patient, Supplemental oxygen as needed. (3) Pleural effusion Conclusion/Plan: 08/21 Patient was taken 2760 cc fluids from thoracentesis from his right lung. ECHO is still pending, we will continue Lasix, continue lab and vital monitor Large right-sided pleural effusion.Patient was taken 2760 cc fluids from thoracentesis. Patient has hx of hepatic failure. it is more likely the cause to have large pleural effusion. cell count, fluid culture are pending. (4)diastolic heart failure ECHO reveals RVSP 47 mmHG And mild right pressure abnormal. Patient BNP is remaining at 140. Patient was given intravenous antibiotics. We will have fluid restriction, daily weight, I's and O's monitor for pt, continue lasix and spironolactone, vital and lab monitor (5) alcoholic hepatic failure Patient has a history of alcoholic hepatic failure. Patient recently underwent a TIPS procedure at [facility]. CTA show patient had portal hypertension. Ultrasound of the abdomen show small ascites. Since patient is alert and orientated, we will home Lactulose 30 mils p.o. every 6 hours. He was also recently transferred to [facility] from the ED for GI bleed with Portal hypertension, We will continue Protonix 40 mg p.o. daily, Hold blood thinner. (6) Hypothyroidism Conclusion/Plan: TSH is normal arrange, continue On Synthroid 250 mcg p.o. daily. - Current Meds Current Meds: Current Medications Generic Name Dose Route Start Last Admin Trade Name Freq PRN Reason Stop Dose Admin Acetaminophen 650 mg 08/22/20 07:41 08/22/20 08:31 Acetaminophen 325 Mg Tablet PO 650 mg Q4HR PRN Administration Pain or Fever > 38C (100.4F) Hydrocodone Bitart/Acetaminophen 1 tab 08/19/20 05:20 08/21/20 23:02 Hydrocod/Acetam 5/325 Mg Tablet PO 1 tab Q6HR PRN Administration PAIN Ferrous Gluconate 324 mg 08/20/20 12:00 08/22/20 11:42 Ferrous Gluconate 324 Mg Tablet PO 324 mg 1200 SANDI Administration Folic Acid 1 mg 08/19/20 09:00 08/22/20 08:31 Folic Acid 1 Mg Tablet PO 1 mg DAILY SANDI Administration Furosemide 40 mg 08/22/20 08:00 08/22/20 08:31 Furosemide 40 Mg/4 Ml Vial IVP 40 mg BIDDIURETIC SANDI Administration Azithromycin 500 mg/ Sodium 250 mls @ 250 mls/hr 08/21/20 10:00 08/22/20 10:20 Chloride IV 08/23/20 09:59 Infused DAILY SANDI Infusion Ceftriaxone Sodium 2 gm/ 100 mls @ 200 mls/hr 08/21/20 10:00 08/22/20 09:06 Sodium Chloride IV 08/25/20 09:29 Infused DAILY SANDI Infusion Lactobacillus Rhamnosus 1 cap 08/21/20 09:00 08/22/20 08:31 Lactobacillus Rhamnosus Gg Capsule PO 1 cap DAILY SANDI Administration Levothyroxine Sodium 250 mcg 08/20/20 08:30 08/22/20 06:03 Levothyroxine 125 Mcg Tablet PO 250 mcg QDAC SANDI Administration Ondansetron HCl 4 mg 08/20/20 06:04 08/22/20 07:06 Ondansetron 4 Mg/2 Ml Vial IVP 4 mg Q4HR PRN Administration Nausea / Vomiting Pantoprazole Sodium 40 mg 08/19/20 07:00 08/22/20 06:03 Pantoprazole 40 Mg Tablet PO 40 mg 0700 SANDI Administration Multivit/Folic Acid/Iron 1 tab 08/20/20 16:00 08/22/20 08:31 Vitamin Tablet PO 1 tab DAILYWM SANDI Administration Rifaximin 550 mg 08/19/20 09:00 08/22/20 08:35 Rifaximin 550 Mg Tablet PO 550 mg BID SANDI Administration Sodium Chloride 10 ml 08/19/20 03:44 08/20/20 20:21 Sodium Chloride Flush 0.9% 10 Ml Syringe IVP 10 ml PRN PRN Administration NEEDED PER PROVIDER ORDERS Sodium Chloride 10 ml 08/19/20 09:00 08/22/20 08:32 Sodium Chloride Flush 0.9% 10 Ml Syringe IVP 10 ml 0100,0900,1700 SANDI Administration Spironolactone 50 mg 08/19/20 09:00 08/22/20 08:31 Spironolactone 25 Mg Tablet PO 50 mg DAILY SANDI Administration - Lab Result Fish Bone Diagrams: 08/22/20 04:59 08/22/20 04:59 - Additional Planning My Orders: My Active Orders 08/21/20 15:44 Echo Transthoracic Complete [ECHO] Routine 08/22/20 07:41 Acetaminophen [Tylenol] 650 mg PO Q4HR PRN 08/22/20 08:00 FUROSEMIDE INJ 40mg VIAL [LASIX INJ 40 mg VIAL] 40 mg IVP BIDDIURETIC 08/22/20 Lunch Cardiac Diet [DIET] 08/23/20 05:00 BNP - B-NATRIURETIC PEPTIDE [IAI] DAILYLAB 08/24/20 05:00 BNP - B-NATRIURETIC PEPTIDE [IAI] DAILYLAB 08/25/20 05:00 BNP - B-NATRIURETIC PEPTIDE [IAI] DAILYLAB Subjective - Subjective Patient Reports: Feeling Better Objective Vital Signs: Vital Signs - 24 hr 08/21/20 08/21/20 08/21/20 12:46 13:50 15:34 Temperature 36.4 C L 36.5 C Heart Rate [ 77 Activity] Heart Rate [ 85 76 Brachial] Respiratory 24 18 Rate Blood Pressure 150/59 H [Activity] Blood Pressure [Left Brachial artery] Blood Pressure 131/62 H 129/53 L [Right Brachial artery] O2 Saturation 93 96 08/21/20 08/21/20 08/21/20 18:00 18:27 20:38 Temperature 36.7 C Heart Rate [ Activity] Heart Rate [ 87 Brachial] Respiratory 20 Rate Blood Pressure [Activity] Blood Pressure 117/46 L [Left Brachial artery] Blood Pressure [Right Brachial artery] O2 Saturation 96 94 95 08/22/20 08/22/20 08/22/20 00:09 03:31 03:35 Temperature 36.9 C 36.8 C Heart Rate [ Activity] Heart Rate [ 79 88 Brachial] Respiratory 18 20 Rate Blood Pressure [Activity] Blood Pressure 145/58 H [Left Brachial artery] Blood Pressure 142/42 H [Right Brachial artery] O2 Saturation 98 92 95 08/22/20 08/22/20 08/22/20 07:11 09:45 12:18 Temperature 36.7 C 36.7 C Heart Rate [ Activity] Heart Rate [ 94 91 96 Brachial] Respiratory 20 14 Rate Blood Pressure [Activity] Blood Pressure 155/68 H 123/43 L [Left Brachial artery] Blood Pressure 120/82 H [Right Brachial artery] O2 Saturation 93 95 Oxygen O2 Source Nasal cannula Oxygen Flow Rate 3 I&O (Last 24 Hrs): Intake and Output Totals x24h 08/20/20 08/21/20 08/22/20 23:59 23:59 23:59 Intake Total 630 1730 950 Output Total 3110 300 400 Balance -2480 1430 550 General: Alert, Oriented x3, Cooperative, No acute distress HEENT: Atraumatic Neck: Supple Lymphatic: no adenopathy Neuro: Alert, Non Focal, Oriented Times 3 Cardiovascular: Regular rate, Normal S1, Normal S2 Respiratory: Chest non-tender, No respiratory distress Abdomen: Normal bowel sounds, Soft Skin: No breakdown - Results Results: Laboratory Results WBC 9.3 x10^3/uL (4.8-10.8) 08/22/20 04:59 RBC 3.35 10^6/uL (4.70-6.10) L 08/22/20 04:59 Hgb 9.8 g/dL (14.0-18.0) L 08/22/20 04:59 Hct 32.2 % (42.0-52.0) L 08/22/20 04:59 MCV 96.1 fL (80.0-94.0) H 08/22/20 04:59 MCH 29.3 pg (27.0-31.0) 08/22/20 04:59 MCHC 30.4 g/dL (32.0-36.0) L 08/22/20 04:59 RDW 14.6 % (12.0-15.0) 08/22/20 04:59 Plt Count 113 10^3/uL (130-450) L 08/22/20 04:59 MPV 9.0 fL (7.4-11.4) 08/22/20 04:59 Neut # (Auto) 6.3 10^3/uL (1.5-6.6) 08/22/20 04:59 Lymph # (Auto) 1.2 10^3/uL (1.5-3.5) L 08/22/20 04:59 [place] # (Auto) 1.4 10^3/uL (0.0-1.0) H 08/22/20 04:59 Eos # (Auto) 0.3 10^3/uL (0.0-0.7) 08/22/20 04:59 Baso # (Auto) 0.1 10^3/uL (0.0-0.1) 08/22/20 04:59 Absolute Nucleated RBC 0.00 x10^3/uL 08/22/20 04:59 Total Counted 100 08/19/20 05:43 Band Neuts % (Manual) 0 % (0-10) 08/19/20 05:43 Abnorm Lymph % (Manual) 0 % 08/19/20 05:43 Nucleated RBC % 0.0 /100WBC 08/22/20 04:59 Neutrophils # (Manual) 6.2 10^3/uL (1.5-6.6) 08/19/20 05:43 Lymphocytes # (Manual) 1.3 10^3/uL (1.5-3.5) L 08/19/20 05:43 Monocytes # (Manual) 1.6 10^3/uL (0.0-1.0) H 08/19/20 05:43 Eosinophils # (Manual) 0.4 10^3/uL (0-0.7) 08/19/20 05:43 Basophils # (Manual) 0.0 10^3/uL (0-0.1) 08/19/20 05:43 Differential Comment MANUAL DIFFERENTIAL 08/19/20 05:43 WBC Morphology NORMAL APPEARANCE (NORMAL) 08/19/20 05:43 Platelet Estimate DECREASED (<130,000) (NORMAL) 08/19/20 05:43 Platelet Morphology NORMAL APPEARANCE (NORMAL) 08/19/20 05:43 RBC Morph Micro Appear NORMAL APPEARANCE (NORMAL) 08/19/20 05:43 PT 14.4 secs (9.9-12.6) H 08/20/20 11:32 INR 1.3 (0.8-1.2) H 08/20/20 11:32 D-Dimer > 1050.0 ng/mL (200.0-255.0) H 08/18/20 22:20 Sodium 133 mmol/L (135-145) L 08/22/20 04:59 Potassium 4.5 mmol/L (3.5-5.0) 08/22/20 04:59 Chloride 89 mmol/L (101-111) L 08/22/20 04:59 Carbon Dioxide 36 mmol/L (21-32) H 08/22/20 04:59 Anion Gap 8.0 (6-13) 08/22/20 04:59 BUN 12 mg/dL (6-20) 08/22/20 04:59 Creatinine 1.4 mg/dL (0.6-1.2) H 08/22/20 04:59 Estimated GFR (MDRD) 51 (>89) L 08/22/20 04:59 Glucose 116 mg/dL (70-100) H 08/22/20 04:59 Calcium 8.8 mg/dL (8.5-10.3) 08/22/20 04:59 Magnesium 1.9 mg/dL (1.7-2.8) 08/20/20 05:27 Total Bilirubin 0.9 mg/dL (0.2-1.0) 08/18/20 22:20 AST 41 IU/L (10-42) 08/18/20 22:20 ALT 19 IU/L (10-60) 08/18/20 22:20 Alkaline Phosphatase 169 IU/L (42-121) H 08/18/20 22:20 Troponin I High Sens 26.9 ng/L (2.3-19.7) H* 08/20/20 08:41 B-Natriuretic Peptide 147 pg/mL (5-100) H 08/22/20 04:57 Total Protein 8.0 g/dL (6.7-8.2) 08/18/20 22:20 Albumin 2.8 g/dL (3.2-5.5) L 08/18/20 22:20 Globulin 5.2 g/dL (2.1-4.2) H 08/18/20 22:20 Albumin/Globulin Ratio 0.5 (1.0-2.2) L 08/18/20 22:20 Lipase 35 U/L (22-51) 08/18/20 22:20 TSH 0.43 uIU/mL (0.34-5.60) 08/20/20 05:27 Fluid Source PLEURAL 08/20/20 15:15 Fluid Color YELLOW 08/20/20 15:15 Fluid Clarity HAZY 08/20/20 15:15 Fluid WBC 435 /mm^3 08/20/20 15:15 Fluid RBC 3000 /mm^3 08/20/20 15:15 Fluid Neutrophils % 9.0 % 08/20/20 15:15 Fluid Lymphocytes % 20.0 % 08/20/20 15:15 Fluid Monocytes % 8.0 % 08/20/20 15:15 Fluid Macrophages % 33.0 % 08/20/20 15:15 Fld Mesothelial Cell % 30.0 % 08/20/20 15:15 Nasal Adenovirus (PCR) NOT DETECTED 08/19/20 03:37 Nasal B. parapertussis DNA (PCR) NOT DETECTED 08/19/20 03:37 Nasal Coronavir 229E PCR NOT DETECTED 08/19/20 03:37 Nasal Coronavir HKU1 PCR NOT DETECTED 08/19/20 03:37 Nasal Coronavir NL63 PCR NOT DETECTED 08/19/20 03:37 Nasal Coronavir OC43 PCR NOT DETECTED 08/19/20 03:37 Nasal Enterovir/Rhinovir PCR NOT DETECTED 08/19/20 03:37 Nasal Influenza B PCR NOT DETECTED 08/19/20 03:37 Nasal Influenza A PCR NOT DETECTED 08/19/20 03:37 Nasal Parainfluen 1 PCR NOT DETECTED 08/19/20 03:37 Nasal Parainfluen 2 PCR NOT DETECTED 08/19/20 03:37 Nasal Parainfluen 3 PCR NOT DETECTED 08/19/20 03:37 Nasal Parainfluen 4 PCR NOT DETECTED 08/19/20 03:37 Nasal RSV (PCR) NOT DETECTED 08/19/20 03:37 Nasal B.pertussis DNA PCR NOT DETECTED 08/19/20 03:37 Nasal C.pneumoniae (PCR) NOT DETECTED 08/19/20 03:37 Greg Human Metapneumo PCR NOT DETECTED 08/19/20 03:37 Nasal M.pneumoniae (PCR) NOT DETECTED 08/19/20 03:37 Nasal SARS-CoV-2 (PCR) NOT DETECTED 08/19/20 03:37 ABX Reporting Has patient been on IV antibiotics over the past 48 hours?: Yes Current Medications - Current Medications Current Medications: Active Medications Acetaminophen (Acetaminophen 325 Mg Tablet) 650 mg PO Q4HR PRN PRN Reason: Pain or Fever > 38C (100.4F) Last Admin: 08/22/20 08:31 Dose: 650 mg Documented by: Hydrocodone Bitart/Acetaminophen (Hydrocod/Acetam 5/325 Mg Tablet) 1 tab PO Q6HR PRN PRN Reason: PAIN Last Admin: 08/21/20 23:02 Dose: 1 tab Documented by: Ferrous Gluconate (Ferrous Gluconate 324 Mg Tablet) 324 mg PO 1200 SANDI Last Admin: 08/22/20 11:42 Dose: 324 mg Documented by: Folic Acid (Folic Acid 1 Mg Tablet) 1 mg PO DAILY SANDI Last Admin: 08/22/20 08:31 Dose: 1 mg Documented by: Furosemide (Furosemide 40 Mg/4 Ml Vial) 40 mg IVP BIDDIURETIC SANDI Last Admin: 08/22/20 08:31 Dose: 40 mg Documented by: Azithromycin 500 mg/ Sodium (Chloride) 250 mls @ 250 mls/hr IV DAILY SANDI Stop: 08/23/20 09:59 Last Infusion: 08/22/20 10:20 Dose: Infused Documented by: Ceftriaxone Sodium 2 gm/ (Sodium Chloride) 100 mls @ 200 mls/hr IV DAILY SANDI Stop: 08/25/20 09:29 Last Infusion: 08/22/20 09:06 Dose: Infused Documented by: Lactobacillus Rhamnosus (Lactobacillus Rhamnosus Gg Capsule) 1 cap PO DAILY [facility] Last Admin: 08/22/20 08:31 Dose: 1 cap Documented by: Lactulose (Lactulose 10 Gm/15 Ml Bottle) 20 gm PO Q6H [facility] Levothyroxine Sodium (Levothyroxine 125 Mcg Tablet) 250 mcg PO QDAC [facility] Last Admin: 08/22/20 06:03 Dose: 250 mcg Documented by: Ondansetron HCl (Ondansetron 4 Mg/2 Ml Vial) 4 mg IVP Q4HR PRN PRN Reason: Nausea / Vomiting Last Admin: 08/22/20 07:06 Dose: 4 mg Documented by: Pantoprazole Sodium (Pantoprazole 40 Mg Tablet) 40 mg PO 0700 [facility] Last Admin: 08/22/20 06:03 Dose: 40 mg Documented by: Multivit/Folic Acid/Iron ( Vitamin Tablet) 1 tab PO DAILYWM [facility] Last Admin: 08/22/20 08:31 Dose: 1 tab Documented by: Rifaximin (Rifaximin 550 Mg Tablet) 550 mg PO BID [facility] Last Admin: 08/22/20 08:35 Dose: 550 mg Documented by: Sodium Chloride (Sodium Chloride Flush 0.9% 10 Ml Syringe) 10 ml IVP PRN PRN PRN Reason: NEEDED PER PROVIDER ORDERS Last Admin: 08/20/20 20:21 Dose: 10 ml Documented by: Sodium Chloride (Sodium Chloride Flush 0.9% 10 Ml Syringe) 10 ml IVP 01 00,0900,1700 [facility] Last Admin: 08/22/20 08:32 Dose: 10 ml Documented by: Spironolactone (Spironolactone 25 Mg Tablet) 50 mg PO DAILY [facility] Last Admin: 08/22/20 08:31 Dose: 50 mg Documented by: Levothyroxine [Synthroid] 250 mcg PO DAILY 07/27/19 Lactulose 15 ml PO Q6HR 07/08/20 Rifaximin [Xifaxan] 550 mg PO BID 07/08/20 Spironolactone [Aldactone] 50 mg PO DAILY 07/08/20 Folic Acid 1 mg PO DAILY 07/23/20 Cholecalciferol (Vitamin D3) [Vitamin D3] 1,000 mcg PO DAILY 08/19/20 Ferrous Gluconate 324 mg PO DAILY 08/19/20 Multivitamin 1 tablet PO DAILY 08/19/20 Pantoprazole Sodium 40 mg PO DAILY 08/19/20
[2020-08-22] MEDS: SODIUM CHLORIDE FLUSH 0.9% 10 ML SYRINGE IVP PRN (14:04)
[2020-08-22] MEDS: LACTULOSE 10 GM/15 ML BOTTLE PO SCH ×2 (16:45→23:07)
[2020-08-22] MEDS: THIAMINE 100 MG TABLET PO SCH (17:58)
[2020-08-22] MEDS: HYDROcod/ACETAM 5/325 MG TABLET PO PRN (21:16)
[2020-08-23 05:23] LABS: BASOPHILS # (AUTO) 0.1 10^3/uL (0.0-0.1); EOSINOPHILS # (AUTO) 0.4 10^3/uL (0.0-0.7); HCT - HEMATOCRIT 33.8 % (42.0-52.0); HGB - HEMOGLOBIN 10.6 g/dL (14.0-18.0); LYMPHOCYTES # (AUTO) 1.3 10^3/uL (1.5-3.5); MEAN CORPUSCULAR HEMOGLOBIN 29.9 pg (27.0-31.0); MEAN CORPUSCULAR HGB CONC 31.4 g/dL (32.0-36.0); MEAN CORPUSCULAR VOLUME 95.2 fL (80.0-94.0); MEAN PLATELET VOLUME 9.1 fL (7.4-11.4); MONOCYTES # (AUTO) 1.2 10^3/uL (0.0-1.0); MONOCYTES % (AUTO) 14.5 %; NEUTROPHILS # (AUTO) 5.5 10^3/uL (1.5-6.6); NEUTROPHILS % (AUTO) 64.2 %; PLT - PLATELET COUNT 119 10^3/uL (130-450); RED BLOOD COUNT 3.55 10^6/uL (4.70-6.10); RED CELL DISTRIBUTION WIDTH 14.8 % (12.0-15.0); WHITE BLOOD COUNT 8.6 x10^3/uL (4.8-10.8)
[2020-08-23 05:32] LABS: CREATININE 1.5 mg/dL (0.6-1.2); POTASSIUM 3.9 mmol/L (3.5-5.0)
[2020-08-23] MEDS: FUROSEMIDE 40 MG/4 ML VIAL IVP SCH ×2 (05:54→14:55)
[2020-08-23] MEDS: LEVOTHYROXINE 125 MCG TABLET PO SCH (05:54)
[2020-08-23] MEDS: PANTOPRAZOLE 40 MG TABLET PO SCH (05:54)
[2020-08-23] MEDS: LACTULOSE 10 GM/15 ML BOTTLE PO SCH ×2 (05:54→11:50)
[2020-08-23] MEDS: HYDROcod/ACETAM 5/325 MG TABLET PO PRN (09:39)
[2020-08-23] MEDS: cefTRIAXone 2 GM in SODIUM CHLORIDE 0.9% MINIBAG 100 ML IV SCH (10:17)
[2020-08-23] MEDS: PRENATAL VITAMIN TABLET PO SCH (10:24)
[2020-08-23] MEDS: THIAMINE 100 MG TABLET PO SCH (10:24)
[2020-08-23] MEDS: SPIRONOLACTONE 25 MG TABLET PO SCH (10:24)
[2020-08-23] MEDS: FOLIC ACID 1 MG TABLET PO SCH (10:24)
[2020-08-23] MEDS: SODIUM CHLORIDE FLUSH 0.9% 10 ML SYRINGE IVP SCH (10:25)
[2020-08-23] MEDS: rifAXIMin 550 MG TABLET PO SCH (10:25)
[2020-08-23] MEDS: LACTOBACILLUS RHAMNOSUS GG CAPSULE PO SCH (10:25)
[2020-08-23] MEDS: AZITHROMYCIN INJ 500 MG in SODIUM CHLORIDE 0.9% 250 ML IV SCH (11:25)
[2020-08-23] MEDS: FERROUS GLUCONATE 324 MG TABLET PO SCH (12:21)
[2020-08-23 13:25] VITALS: BP 128/43
--- NOTE | 2020-08-23 13:55 | Discharge Plan ---
Discharge Plan Problem Reviewed?: Yes Disposition: Home, Self Care Condition: Poor Prescriptions: cefUROXime axetiL [Ceftin] 500 mg PO Q12H 5 Days #20 tablet Lactobacillus Rhamnosus GG [Culturelle] 1 cap PO DAILY #10 cap Diet: Cardiac Activity Restrictions: Activity as Tolerated Shower Restrictions: No (fall precaution) Instruction Topics: Effusion Pleural, Pneumonia, Oxygen Home Use, Hypertension Pulmonary Health Concerns: You have right large pleural effusion which was removed. You are prescribed Lasix by provider to help reduction of fluid in the lung. you also developed pneumonia in hospital. you are prescribed antibiotics for you to finish the pneumonia treatment course. Now you are prescribed home oxygen, please followup with RT instruction for you safely to use oxygen at home. you may resume your home medications as the schedule. Plan of Treatment: as the above Care Goals: stabilization and improvement of your medical conditions Assessment: discussed the care plan with you, you understood. Additional Instructions or Follow Up instructions: You may followup with your PCP in one week, followup with graduate teaching assistant as out- pt. Should your symptoms return or worsen, you may present ER or call 911 for help. No Smoking: If you smoke, Please STOP! Call for help. Follow-up with: Kaz Nemwan MD [Primary Care Provider] -
--- NOTE | 2020-08-23 14:15 | DISCHARGE SUMMARY ---
Discharge Summary Admit Date: 08/19/20 Discharge Date: 08/23/20 Discharging Provider: Layton Stone Primary Care Provider: Dr. Kaz Newman Condition at Discharge: Poor Discharge Disposition: 01 Home, Self Care Discharge Facility Name: home - DIAGNOSES Discharge Diagnoses with Status of Each Condition: (1) Respiratory failure with hypoxia Improved significantly, patient had a 97% sats on 2 L oxygen. Patient has no acute respiratory distress. it is likely caused by pt's Pneumonia, heart failure, fluids from patient's hepatic failure with cirrhosis. Patient is prescribed by other provider for Lasix to help reduce fluids in the lung. (2)pneumonia Significantly improved, patient WBC become normal range. Patient had a 97% sats on 2 liter of o2, Patient has no more active respiratory distress. Patient is prescribed antibiotics for finishing of treatment course of pneumonia (3) Pleural effusion Patient was taken 2760 cc fluids from thoracentesis from his right lung. it is likely caused by pt's heart failure, and fluids from patient's hepatic failure with cirrhosis. Patient is prescribed Lasix (4)diastolic heart failure ECHO reveals RVSP 47 mmHG And mild right pressure abnormal. Patient BNP is elevated. Patient was given intravenous lasix. Patient feels much better after treatment, patient has no acute respiratory distress. Patient had a 97% sats on 2 lpm of O2. Patient is prescribed Lasix for d/c. Patient required home oxygen on desat study. Patient was hypoxia at room air, oxygen sats is 89%. With ambulation on room air, he was hypoxia with O2 saturation of 84%. With exertion on 1 L oxygen, his sats was 88%. on 2 L oxygen, his saturation improved to 92%. I am ordering home oxygen, room air at rest and to need 2 lpm of oxygen with exertion to help treat the patient's pulmonary hypertension and heart failure. (5) alcoholic hepatic failure Patient has a history of alcoholic hepatic failure. Patient recently underwent a TIPS procedure at [facility]. Patient was taken 2760 cc fluids from thoracentesis from his right lung. Resume home medication, follow-up with janitorial assistant as out- pt. strong advise pt no more drink of alcohol. (6) Hypothyroidism TSH is normal arrange, continue home Synthroid - HPI History of Present Illness: Patient is a 65-year-old male with medical history significant for hypertension, hypothyroidism, coronary artery disease, alcohol abuse with alcoholic liver cirrhosis status post TIPS procedure recently who presented to the ED today with difficulty breathing. His symptoms started last night. He denied any chest pain, abdominal pain, fever or chills he reports some nausea and vomiting. Work-up in the ED included a CT scan which showed a large right-sided pleural effusion. In the ED he was also hypoxic with oxygen saturation between 86 and 88%. He required 4 L of oxygen to get his oxygen saturation into the mid 90s. Due to his body habitus which is obese attempts at bedside thoracentesis in the ED was unsuccessful. As a result he was presented for admission for thoracentesis by radiology. At bedside he appears comfortable but mildly dyspneic. He has crackles in the lung bases on the left. Breath sounds are diminished on the right. He has lower extremity edema which is nonpitting. - HOSPITAL COURSE Hospital Course: Patient was admitted for shortness of breathing. Patient was found to have large right pleural effusion. The second thoracentesis was successful and removal 2760 cc of fluids. Thoracentesis fluids has negative culture for bacteria. Patient developed pneumonia in the hospital, patient was treated with intravenous antibiotics. Patient also develop pulmonary congestion. Patient was treated with intravenous diuretics Lasix. After treatment patient has no respiratory distress, WBC become normal, Patient feels much better. After Oxygen desaturation study, Patient is required to provide home oxygen at patient's exertion. Patient also had a PT and OT evaluation and treatment, PT and OT recommended patient can be discharged home without need of further family assistant. - ALLERGIES Allergies/Adverse Reactions: Allergies Allergy/AdvReac Type Severity Reaction Status Date / Time No Known Drug Allergies Allergy Verified 08/23/20 05:03 - MEDICATIONS Home Medications: Ambulatory Orders Medication Instructions Recorded Confirmed Levothyroxine [Synthroid] 250 mcg PO DAILY 07/27/19 08/19/20 Lactulose 15 ml PO Q6HR 07/08/20 08/19/20 Rifaximin [Xifaxan] 550 mg PO BID 07/08/20 08/19/20 Spironolactone [Aldactone] 50 mg PO DAILY 07/08/20 08/19/20 Folic Acid 1 mg PO DAILY 07/23/20 08/19/20 Furosemide [Lasix] 40 mg PO DAILY #60 tablet 07/23/20 08/19/20 Cholecalciferol (Vitamin D3) 1,000 mcg PO DAILY 08/19/20 08/19/20 [Vitamin D3] Ferrous Gluconate 324 mg PO DAILY 08/19/20 08/19/20 Multivitamin 1 tablet PO DAILY 08/19/20 08/19/20 Pantoprazole Sodium 40 mg PO DAILY 08/19/20 08/19/20 Lactobacillus Rhamnosus GG 1 cap PO DAILY #10 cap 08/23/20 [Culturelle] cefUROXime axetiL [Ceftin] 500 mg PO Q12H 5 Days #20 tablet 08/23/20 - PHYSICAL EXAM AT DISCHARGE General Appearance: positive: No acute distress, Alert. negative: Lethargic Eyes Bilateral: positive: Normal inspection, PERRL, No lid inflammation ENT: positive: ENT inspection nml, No signs of dehydration. negative: Purulent nasal drainage Neck: positive: Nml inspection, Trachea midline. negative: Thyromegaly, Tracheal deviation Respiratory: positive: Chest non-tender, No respiratory distress. negative: Wheezes Cardiovascular: positive: Regular rate & rhythm, No murmur. negative: Tachycardia, Bradycardia, Systolic murmur, Diastolic murmur Peripheral Pulses: positive: 2+ Abdomen: positive: Non-tender, Nml bowel sounds, No distention. negative: Tenderness Back: positive: Nml inspection Skin: positive: Color nml, Warm, Dry. negative: Cyanosis, Diaphoresis Extremities: positive: Non-tender, Full ROM. negative: Calf tenderness Neurologic/Psychiatric: positive: Oriented x3, Motor nml, Sensation nml, Mood/affect nml. negative: Weakness, Sensory loss, Facial droop, Slurred/abnml speech, Depressed mood/affect - LABS Result Diagrams: 08/23/20 05:09 08/23/20 05:09 - FOLLOW UP Follow Up: You have right large pleural effusion which was removed. You are prescribed Lasix by provider to help reduction of fluid in the lung. you also developed pneumonia in hospital. you are prescribed antibiotics for you to finish the pneumonia treatment course. Now you are prescribed home oxygen, please followup with RT instruction for you safely to use oxygen at home. you may resume your home medications as the schedule. You may followup with your PCP in one week, followup with basic sciences dean as out- pt. Should your symptoms return or worsen, you may present ER or call 911 for help. - TIME SPENT Time Spent in Discharge (Minutes): 30
== END 2020-08-23 16:30 | disposition home or self-care (01) | DRG 186 ==
LOC: ED 21:34 → MS2 08-19 03:44 → OBSVTOIN 08-21 10:28
PROVIDERS: ADMIT Internal Medicine; ATTEND Nurse Practitioner Gerontology
DX: J90 Pleural effusion, not elsewhere classified (principal); R09.02 Hypoxemia; R60.0 Localized edema; I10 Essential (primary) hypertension; J96.91 Respiratory failure, unspecified with hypoxia; Z20.822 Contact with and (suspected) exposure to COVID-19; K70.31 Alcoholic cirrhosis of liver with ascites; R11.2 Nausea with vomiting, unspecified; J18.9 Pneumonia, unspecified organism; I50.30 Unspecified diastolic (congestive) heart failure; Z68.41 Body mass index [BMI] 40.0-44.9, adult; I11.0 Hypertensive heart disease with heart failure; K70.40 Alcoholic hepatic failure without coma; E03.9 Hypothyroidism, unspecified; I25.10 Atherosclerotic heart disease of native coronary artery without angina pectoris; F10.10 Alcohol abuse, uncomplicated; Z87.891 Personal history of nicotine dependence; K70.30 Alcoholic cirrhosis of liver without ascites; Y95 Nosocomial condition; E66.9 Obesity, unspecified
CPT/HCPCS: 32554; 32555; 36415; 71045; 71275; 80048; 80053; 83690; 83735; 83880; 84443; 84484; 85025; 85379; 85610; 87070; 87205; 87631; 89051; 93005; 93306; 94640; 94761; 96365; 96375; 96376; 97161; 99285; A9270; G0378; J2060; J8499; Q9967; 0202U; 87075; 88108; 88305

== ENCOUNTER 2020-08-26 09:17 | Inpatient (IN) | payer MEDICARE ==
--- NOTE | 2020-08-26 10:00 | XRAY Report ---
PROCEDURE: Chest 1 View X-Ray INDICATIONS: Chest Pain TECHNIQUE: One view of the chest was acquired. COMPARISON: Chest x-ray 08/21/2020 FINDINGS: Surgical changes and devices: None. Lungs and pleura: Persistent appearance of right effusion. Interval development of blunting of the le ft costophrenic angle. Mediastinum: Mediastinal contours appear normal. Heart size is normal. Bones and chest wall: No suspicious bony lesions. Overlying soft tissues appear unremarkable. IMPRESSION: Persistent right effusion, minimally improved. Underlying areas of pneumonia/atelectasis cannot be ex cluded. Interval development of minimal to mild left effusion. Reviewed by: Sanna Arciniega MD on 08/26/2020 9:59 AM PDT Approved by: Sanna Arciniega MD on 08/26/2020 9:59 AM PDT Station ID: [id number]
[2020-08-26 10:07] LABS: BASOPHILS # (AUTO) 0.1 10^3/uL (0.0-0.1); BASOPHILS % (AUTO) 0.9 %; EOSINOPHILS # (AUTO) 0.2 10^3/uL (0.0-0.7); EOSINOPHILS % (AUTO) 3.1 %; HCT - HEMATOCRIT 34.5 % (42.0-52.0); LYMPHOCYTES # (AUTO) 1.1 10^3/uL (1.5-3.5); LYMPHOCYTES % (AUTO) 13.6 %; MEAN CORPUSCULAR HEMOGLOBIN 29.6 pg (27.0-31.0); MEAN CORPUSCULAR HGB CONC 31.9 g/dL (32.0-36.0); MEAN PLATELET VOLUME 8.7 fL (7.4-11.4); MONOCYTES # (AUTO) 0.9 10^3/uL (0.0-1.0); MONOCYTES % (AUTO) 11.9 %; NEUTROPHILS # (AUTO) 5.4 10^3/uL (1.5-6.6); NEUTROPHILS % (AUTO) 70.1 %; PLT - PLATELET COUNT 110 10^3/uL (130-450); RED BLOOD COUNT 3.71 10^6/uL (4.70-6.10); RED CELL DISTRIBUTION WIDTH 15.1 % (12.0-15.0); WHITE BLOOD COUNT 7.7 x10^3/uL (4.8-10.8)
[2020-08-26 10:09] LABS: VBG BASE EXCESS 11.6 mmol/L (-2 - +2); VBG HCO3 39.3 mmol/L (23-28); VBG OXYGEN SATURATION 82.5 % (60-80); VBG PCO2 68.6 mmHg (41-51); VBG PH 7.376 (7.31-7.41); VBG PO2 48.8 mmHg (25-47); VBG TOTAL CO2 41.4 mmol/L (24-29)
[2020-08-26 10:21] LABS: ALBUMIN 2.7 g/dL (3.2-5.5); ALBUMIN/GLOBULIN RATIO 0.6 (1.0-2.2); BILIRUBIN,TOTAL 0.9 mg/dL (0.2-1.0); CALCIUM 9.3 mg/dL (8.5-10.3); CREATININE 1.3 mg/dL (0.6-1.2); POTASSIUM 4.2 mmol/L (3.5-5.0); TOTAL PROTEIN 7.2 g/dL (6.7-8.2)
[2020-08-26] MEDS ORDERED: VANCOMYCIN INJ 1.75 GM in SODIUM CHLORIDE 0.9% 500 ML IV ONE (10:28)
[2020-08-26] MEDS ORDERED: PIPERACILLIN/TAZOBACTAM 3.375 GM in SODIUM CHLORIDE 0.9% MINIBAG 100 ML IV STA (10:28)
[2020-08-26] MEDS ORDERED: IPRATROPIUM/ALBUTEROL 3 ML NEB INH STA (10:29)
--- NOTE | 2020-08-26 10:32 | ED Physician Documentation ---
History of Present Illness - Stated complaint Stated Complaint: SOA - Chief complaint Chief Complaint: Resp - History obtained from History obtained from: Patient, Family () - Additonal information Additional information: 65-year-old man with past medical history of cirrhosis status post TIPS in June at [facility], recent hospitalization here for pneumonia and pleural effusion status post thoracentesis on Wednesday, discharged on Wednesday with 5-day course of cefotetan, presents with worsening dyspnea since that time. He was discharged on 2 L of home oxygen after not previously needing it and has progressed to 3 L yesterday and 4 L today with significant distance dressed. Also with productive cough but no hemoptysis. He does have bilateral leg swelling that is nonworsening. Denies pleurisy or chest pain at present. Review of Systems Ten Systems: 10 systems reviewed and negative Respiratory: reports: Dyspnea, Cough PD PAST MEDICAL HISTORY - Past Medical History Past Medical History: Yes Cardiovascular: Congestive heart failure, Hypertension, Coronary artery disease Respiratory: None Neuro: Peripheral neuropathy Endocrine/Autoimmune: None GI: Hiatal hernia, Cirrhosis : Kidney stones HEENT: None Psych: None Musculoskeletal: None Derm: None - Past Surgical History Past Surgical History: Yes General: Cholecystectomy, Hiatal hernia repair Ortho: Knee replacement - Present Medications Home Medications: Ambulatory Orders Medication Instructions Recorded Confirmed Levothyroxine [Synthroid] 250 mcg PO DAILY 07/27/19 08/26/20 Lactulose 15 ml PO Q6HR 07/08/20 08/26/20 Rifaximin [Xifaxan] 550 mg PO BID 07/08/20 08/26/20 Spironolactone [Aldactone] 50 mg PO DAILY 07/08/20 08/26/20 Folic Acid 1 mg PO DAILY 07/23/20 08/26/20 Furosemide [Lasix] 40 mg PO DAILY #60 tablet 07/23/20 08/26/20 Cholecalciferol (Vitamin D3) 1,000 mcg PO DAILY 08/19/20 08/26/20 [Vitamin D3] Ferrous Gluconate 324 mg PO DAILY 08/19/20 08/26/20 Multivitamin 1 tablet PO DAILY 08/19/20 08/26/20 Pantoprazole Sodium 40 mg PO DAILY 08/19/20 08/26/20 Lactobacillus Rhamnosus GG 1 cap PO DAILY #10 cap 08/23/20 08/26/20 [Culturelle] cefUROXime axetiL [Ceftin] 500 mg PO Q12H 5 Days #20 tablet 08/23/20 08/26/20 - Allergies Allergies/Adverse Reactions: Allergies Allergy/AdvReac Type Severity Reaction Status Date / Time No Known Drug Allergies Allergy Verified 08/23/20 05:03 - Social History Does the pt smoke?: No Smoking Status: Former smoker Does the pt drink ETOH?: Yes Does the pt have substance abuse?: No - Immunizations Immunizations are current?: Yes - POLST Patient has POLST: No POLST Status: Full Code PD ED PE NORMAL - Vitals Vital signs reviewed: Yes - General General: Alert and oriented X 3, Well developed/nourished, Other (Mild dyspnea with speech) - HEENT HEENT: Atraumatic, PERRL, EOMI - Neck Neck: Supple, no meningeal sign - Cardiac Cardiac: RRR - Respiratory Respiratory: Other (Bilateral dependent crackles) - Abdomen Abdomen: Non tender, Other (Mild abdominal distention) - Derm Derm: Normal color, Warm and dry - Extremities Extremities: No deformity - Neuro Neuro: Alert and oriented X 3 - Psych Psych: Normal mood, Normal affect Results - Vitals Vitals: Vital Signs - 24 hr 08/26/20 08/26/20 08/26/20 09:31 10:09 10:38 Temperature 36.4 C L Heart Rate 87 82 82 Respiratory 18 18 26 H Rate Blood Pressure 171/69 H 145/108 H 166/100 H O2 Saturation 96 96 94 Oxygen O2 Source Nasal cannula - EKG (time done) 0937 Rate: Rate (enter#) (81) Compare to prior EKG: Unchanged from prior EKG - Labs Labs: Laboratory Tests 08/26/20 08/26/20 08/26/20 09:50 09:50 09:50 WBC 7.7 RBC 3.71 L Hgb 11.0 L Hct 34.5 L MCV 93.0 MCH 29.6 MCHC 31.9 L RDW 15.1 H Plt Count 110 L MPV 8.7 Neut # (Auto) 5.4 Lymph # (Auto) 1.1 L Rice # (Auto) 0.9 Eos # (Auto) 0.2 Baso # (Auto) 0.1 Absolute Nucleated RBC 0.00 Nucleated RBC % 0.0 VBG pH VBG pCO2 VBG pO2 VBG HCO3 VBG Total CO2 VBG O2 Saturation VBG Base Excess Sodium 130 L Potassium 4.2 Chloride 84 L Carbon Dioxide 40 H* Anion Gap 6.0 BUN 14 Creatinine 1.3 H Estimated GFR (MDRD) 55 L Glucose 248 H Lactic Acid Calcium 9.3 Total Bilirubin 0.9 AST 37 ALT 18 Alkaline Phosphatase 137 H Troponin I High Sens 31.7 H* B-Natriuretic Peptide Total Protein 7.2 Albumin 2.7 L Globulin 4.5 H Albumin/Globulin Ratio 0.6 L Lipase 45 Nasal Adenovirus (PCR) Nasal B. parapertussis DNA (PCR) Nasal Coronavir 229E PCR Nasal Coronavir HKU1 PCR Nasal Coronavir NL63 PCR Nasal Coronavir OC43 PCR Nasal Enterovir/Rhinovir PCR Nasal Influenza B PCR Nasal Influenza A PCR Nasal Parainfluen 1 PCR Nasal Parainfluen 2 PCR Nasal Parainfluen 3 PCR Nasal Parainfluen 4 PCR Nasal RSV (PCR) Nasal B.pertussis DNA PCR Nasal C.pneumoniae (PCR) Greg Human Metapneumo PCR Nasal M.pneumoniae (PCR) Nasal SARS-CoV-2 (PCR) 08/26/20 08/26/20 08/26/20 09:50 09:50 10:00 WBC RBC Hgb Hct MCV MCH MCHC RDW Plt Count MPV Neut # (Auto) Lymph # (Auto) Rice # (Auto) Eos # (Auto) Baso # (Auto) Absolute Nucleated RBC Nucleated RBC % VBG pH 7.376 VBG pCO2 68.6 H VBG pO2 48.8 H VBG HCO3 39.3 H VBG Total CO2 41.4 H VBG O2 Saturation 82.5 H VBG Base Excess 11.6 H Sodium Potassium Chloride Carbon Dioxide Anion Gap BUN Creatinine Estimated GFR (MDRD) Glucose Lactic Acid Calcium Total Bilirubin AST ALT Alkaline Phosphatase Troponin I High Sens B-Natriuretic Peptide 101 H Total Protein Albumin Globulin Albumin/Globulin Ratio Lipase Nasal Adenovirus (PCR) NOT DETECTED Nasal B. parapertussis DNA (PCR) NOT DETECTED Nasal Coronavir 229E PCR NOT DETECTED Nasal Coronavir HKU1 PCR NOT DETECTED Nasal Coronavir NL63 PCR NOT DETECTED Nasal Coronavir OC43 PCR NOT DETECTED Nasal Enterovir/Rhinovir PCR NOT DETECTED Nasal Influenza B PCR NOT DETECTED Nasal Influenza A PCR NOT DETECTED Nasal Parainfluen 1 PCR NOT DETECTED Nasal Parainfluen 2 PCR NOT DETECTED Nasal Parainfluen 3 PCR NOT DETECTED Nasal Parainfluen 4 PCR NOT DETECTED Nasal RSV (PCR) NOT DETECTED Nasal B.pertussis DNA PCR NOT DETECTED Nasal C.pneumoniae (PCR) NOT DETECTED Greg Human Metapneumo PCR NOT DETECTED Nasal M.pneumoniae (PCR) NOT DETECTED Nasal SARS-CoV-2 (PCR) NOT DETECTED 08/26/20 08/26/20 10:50 11:00 WBC RBC Hgb Hct MCV MCH MCHC RDW Plt Count MPV Neut # (Auto) Lymph # (Auto) Rice # (Auto) Eos # (Auto) Baso # (Auto) Absolute Nucleated RBC Nucleated RBC % VBG pH VBG pCO2 VBG pO2 VBG HCO3 VBG Total CO2 VBG O2 Saturation VBG Base Excess Sodium Potassium Chloride Carbon Dioxide Anion Gap BUN Creatinine Estimated GFR (MDRD) Glucose Lactic Acid 1.5 Calcium Total Bilirubin AST ALT Alkaline Phosphatase Troponin I High Sens 32.2 H* B-Natriuretic Peptide Total Protein Albumin Globulin Albumin/Globulin Ratio Lipase Nasal Adenovirus (PCR) Nasal B. parapertussis DNA (PCR) Nasal Coronavir 229E PCR Nasal Coronavir HKU1 PCR Nasal Coronavir NL63 PCR Nasal Coronavir OC43 PCR Nasal Enterovir/Rhinovir PCR Nasal Influenza B PCR Nasal Influenza A PCR Nasal Parainfluen 1 PCR Nasal Parainfluen 2 PCR Nasal Parainfluen 3 PCR Nasal Parainfluen 4 PCR Nasal RSV (PCR) Nasal B.pertussis DNA PCR Nasal C.pneumoniae (PCR) Greg Human Metapneumo PCR Nasal M.pneumoniae (PCR) Nasal SARS-CoV-2 (PCR) PD MEDICAL DECISION MAKING - ED course ED course: 65-year-old man presents with increasing O2 requirements after being discharged status post thoracentesis. He appears to have a pneumonia on x-ray therefore we will treat that and admit him. Departure - Departure Disposition: 65 [facility] DC/Xfer Clinical Impression: Elevated troponin, Hyperglycemia, Pleural effusion, Pneumonia Discharge Date/Time: 08/26/20 12:02
[2020-08-26] MEDS ORDERED: ONDANSETRON ODT 4 MG TABLET TL PRN (11:13)
[2020-08-26 11:36] LABS: B. PARAPERTUSSIS- RESP PCR PAN NOT DETECTED; B. PERTUSSIS- RESP PCR PANEL NOT DETECTED; C. PNEUMONIAE- RESP PCR PANEL NOT DETECTED; CORONAVIRUS 229E-RESP PCR NOT DETECTED; CORONAVIRUS HKU1-RESP PCR NOT DETECTED; CORONAVIRUS NL63-RESP PCR NOT DETECTED; CORONAVIRUS OC43-RESP PCR NOT DETECTED; HUMAN METAPNEUMOVIRUS NOT DETECTED; INFLUENZA A- RESP PCR PANEL NOT DETECTED; INFLUENZA B - RESP PCR PANEL NOT DETECTED; M. PNEUMONIAE- RESP PCR PANEL NOT DETECTED; PARAINFLUENZA VIRUS 1 NOT DETECTED; PARAINFLUENZA VIRUS 2 NOT DETECTED; PARAINFLUENZA VIRUS 3 NOT DETECTED; PARAINFLUENZA VIRUS 4 NOT DETECTED; RHINOVIRUS/ENTEROVIRUS NOT DETECTED; RSV- RESP PCR PANEL NOT DETECTED; SARS-CoV-2 -RESP PCR PANEL NOT DETECTED
[2020-08-26] MEDS ORDERED: SPIRONOLACTONE 25 MG TABLET PO SCH (13:00)
--- NOTE | 2020-08-26 14:35 | PHARMACY PROGRESS NOTE ---
- Best Possible Medication History Admit Date and Time: 08/26/20 1113 Processed by: Nursing Medication History completed: Yes Patient Interview: Completed Secondary Source(s): Pharmacy records, Insurance records, Previous admit records As the person ultimately responsible for medication therapy, providers are able to order a medication from an existing home medication list in [facility] via the "Reconcile Routine" prior to Confirmation of that medication by product support representative. Such practice is discouraged except when the physician, in their clinical judgment, deems that a medical need exists for a medication without regard to previous use.
[2020-08-26] MEDS: oxyCODONE 5 MG TABLET PO PRN ×2 (16:09→22:51)
--- NOTE | 2020-08-26 17:57 | HISTORY & PHYSICAL EXAMINATION ---
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 He was recently discharged from this hospital and found to have bilateral pleural effusions and was given treatment with diuresis and thoracentesis removing approximately 2.5 L of the right lung and he was discharged home on 2 L of oxygen having no previous oxygen requirements. Please see discharge summary for full details. Patient states that after discharge she never really quite got back to normal c ontinue to have shortness of breath and in fact found himself having to turn up the oxygen more more until he was finally up to 4 L of oxygen and continuing not to feel good so he came to the emergency room for further evaluation. In the ER chest x-ray confirmed pleural effusions and lab work showed no evidence of leukocytosis and there is no consolidation on imaging. He was not having any fevers, nausea, vomiting, chills or other systemic symptoms suggest infection. He denies any chest pain. Hospital medicine admission was requested for further work-up and treatment and he was given a dose of vancomycin and Zosyn in the ER due to concerns by the ED physician for possible hospital-acquired pneumonia. History - Past Medical History Cardiovascular: reports: Congestive heart failure, Hypertension, Coronary artery disease Respiratory: reports: None Neuro: reports: Peripheral neuropathy Endocrine/Autoimmune: reports: None GI: reports: Hiatal hernia, Cirrhosis : reports: Kidney stones HEENT: reports: None Psych: reports: None Musculoskeletal: reports: None Derm: reports: None MRSA Hx?: No - Past Surgical History General: reports: Cholecystectomy, Hiatal hernia repair Ortho: reports: Knee replacement - Family & Social History Family History Comment/Other: He denies any significant family history Living Situation: With spouse/s.o. Social History Notes: He lives at home with his . He does not use tobacco p roducts. He uses marijuana. He has history of alcohol abuse. He is to drink up to 1/5 of vodka daily. He reports his last drink was 2 weeks ago. - POLST Patient has POLST: No POLST Status: Full Code Meds/Allgy - Home Medications Home Medications: Ambulatory Orders Medication Instructions Recorded Confirmed Levothyroxine [Synthroid] 250 mcg PO DAILY 07/27/19 08/26/20 Lactulose 15 ml PO Q6HR 07/08/20 08/26/20 Rifaximin [Xifaxan] 550 mg PO BID 07/08/20 08/26/20 Spironolactone [Aldactone] 50 mg PO DAILY 07/08/20 08/26/20 Folic Acid 1 mg PO DAILY 07/23/20 08/26/20 Furosemide [Lasix] 40 mg PO DAILY #60 tablet 07/23/20 08/26/20 Cholecalciferol (Vitamin D3) 1,000 mcg PO DAILY 08/19/20 08/26/20 [Vitamin D3] Ferrous Gluconate 324 mg PO DAILY 08/19/20 08/26/20 Multivitamin 1 tablet PO DAILY 08/19/20 08/26/20 Pantoprazole Sodium 40 mg PO DAILY 08/19/20 08/26/20 Lactobacillus Rhamnosus GG 1 cap PO DAILY #10 cap 08/23/20 08/26/20 [Culturelle] cefUROXime axetiL [Ceftin] 500 mg PO Q12H 5 Days #20 tablet 08/23/20 08/26/20 - Allergies Allergies/Adverse Reactions: Allergies Allergy/AdvReac Type Severity Reaction Status Date / Time No Known Drug Allergies Allergy Verified 08/23/20 05:03 Review of Systems - Constitutional Constitutional: reports: Fatigue, Weight loss. denies: Fever, Chills, Weakness, Weight gain - Cardiovascular Cariovascular: denies: Irregular heart rate, Palpitations, Chest pain - Respiratory Respiratory: reports: Orthopnea, SOB at rest, SOB with exertion. denies: Cough, Wheezing, Hemoptysis - Gastrointestinal Gastrointestinal: reports: Abdominal distention. denies: Abdominal pain Prior Level of Functionality: Fully independent and ambulatory Exam - Vital Signs Reviewed Vital Signs: Yes Vital Signs: Vital Signs x48h Temp Pulse Pulse Resp BP BP Pulse Ox 08/26/20 15:44 36.9 C 81 18 143/47 H 93 08/26/20 12:15 36.9 C 83 20 157/39 H 93 08/26/20 11:24 82 26 H 08/26/20 10:38 82 26 H 166/100 H 94 08/26/20 10:09 82 18 145/108 H 96 - Physical Exam General Appearance: positive: No acute distress Eyes Bilateral: positive: Normal inspection ENT: positive: ENT inspection nml Neck: positive: Nml inspection Respiratory: positive: Chest non-tender, No respiratory distress, Breath sounds nml (Mildly diminished breath sounds but otherwise somewhat normal). negative: Wheezes, Rales, Rhonchi Cardiovascular: positive: Regular rate & rhythm, Systolic murmur (Grade 2/6 Holosystolic murmur left sternal border). negative: No murmur, No gallop, Irregularly irregular, Extrasystoles, Tachycardia Peripheral Pulses: positive: 2+ Abdomen: positive: Non-tender, No organomegaly, Nml bowel sounds. negative: No distention, Tenderness Extremities: positive: Pedal edema Neurologic/Psychiatric: positive: Oriented x3, CN's nml (2-12) Conclusion/Plan - Problem List (1) Respiratory failure with hypoxia Conclusion/Plan: Underlying etiology is most likely bilateral pleural effusions. Patient was discharged on oral Lasix however will have to uptitrate diuretics and possibly consider repeat thoracentesis. I also suspect he may have undiagnosed COPD given his smoking history. Apparently he responded to bronchodilators the last time. At this time cannot get reliable data from PFTs but would benefit from a COPD work-up at discharge. For now as needed duo nebs. Underlying etiology of the fluid collection is likely Related to patient's end- stage liver disease/cirrhosis. Albumin levels only mildly decreased at 2.7, could consider albumin infusion if does not respond to diuresis. For now we will start at Lasix 60 mg IV twice daily and check labs and I's and O's/daily weights for fluid assessment and titrate accordingly consider repeat imaging prior to discharge to ensure her effusion has been adequately eliminated. (2) Pleural effusion Conclusion/Plan: As above pleural effusion is persistent and somewhat worsened . Start Lasix 60 mg IV twice daily for now as an aggressive diuretic strategy. Monitor blood pressure, for now looks like he should be able to tolerate it. Monitor renal function. Monitor I's and O's, daily weights, labs, and titrate accordingly Consider thoracentesis if does not resolve. (3) Anasarca Conclusion/Plan: Secondary to liver disease. See above. Monitor albumin levels. If not responding to Lasix consider albumin IV (4) Cirrhosis Conclusion/Plan: Status post TIPS Following GI outpatient. Continue to monitor labs. Qualifiers: Hepatic cirrhosis type: alcoholic cirrhosis Ascites presence: with ascites Qualified Code(s): K70.31 - Alcoholic cirrhosis of liver with ascites (5) Hypothyroidism Conclusion/Plan: Stable. Resume home meds. (6) Elevated troponin Conclusion/Plan: Mild elevation in troponin. No evidence of chest pain. Likely demand. Repeat troponin in the a.m. or sooner if develops chest pain. (7) GERD (gastroesophageal reflux disease) Conclusion/Plan: Cont home PPI (8) CKD (chronic kidney disease) Conclusion/Plan: CKD stable with creatinine of 1.3, approximately same as during previous hospital stay. Monitor labs given the need for diuresis. (9) Anemia in chronic kidney disease Conclusion/Plan: H&H stable. Resume folic acid and iron supplementation. Monitor labs - Lab Results Fish Bones: 08/26/20 09:50 08/26/20 09:50 - Diagnostic Imaging Results Diagnostic Imaging Results: positive: Final report reviewed - EKG Results EKG Interpreted Independently: Yes
[2020-08-26] MEDS: LACTULOSE 10 GM /15 ML UDC PO SCH (19:03)
[2020-08-26] MEDS: SODIUM CHLORIDE FLUSH 0.9% 10 ML SYRINGE IVP SCH (19:04)
[2020-08-26] MEDS: FUROSEMIDE 40 MG/4 ML VIAL IVP SCH (19:04)
[2020-08-26] MEDS: rifAXIMin 550 MG TABLET PO SCH (21:11)
[2020-08-27] MEDS: ACETAMINOPHEN 325 MG TABLET PO PRN ×2 (02:44→19:41)
[2020-08-27] MEDS: oxyCODONE 5 MG TABLET PO PRN ×2 (02:44→19:41)
[2020-08-27] MEDS: LACTULOSE 10 GM /15 ML UDC PO SCH ×4 (03:06→18:24)
[2020-08-27] MEDS: SODIUM CHLORIDE FLUSH 0.9% 10 ML SYRINGE IVP SCH ×3 (03:06→18:25)
[2020-08-27 05:52] LABS: HCT - HEMATOCRIT 31.9 % (42.0-52.0); HGB - HEMOGLOBIN 10.3 g/dL (14.0-18.0); MEAN CORPUSCULAR HEMOGLOBIN 29.5 pg (27.0-31.0); MEAN CORPUSCULAR HGB CONC 32.3 g/dL (32.0-36.0); MEAN CORPUSCULAR VOLUME 91.4 fL (80.0-94.0); RED BLOOD COUNT 3.49 10^6/uL (4.70-6.10); WHITE BLOOD COUNT 9.2 x10^3/uL (4.8-10.8)
[2020-08-27 06:10] LABS: ALBUMIN 2.5 g/dL (3.2-5.5); ALBUMIN/GLOBULIN RATIO 0.6 (1.0-2.2); BILIRUBIN,TOTAL 0.7 mg/dL (0.2-1.0); CALCIUM 8.6 mg/dL (8.5-10.3); CREATININE 1.4 mg/dL (0.6-1.2); POTASSIUM 3.6 mmol/L (3.5-5.0); TOTAL PROTEIN 6.7 g/dL (6.7-8.2)
[2020-08-27] MEDS: LEVOTHYROXINE 125 MCG TABLET PO SCH (06:52)
[2020-08-27] MEDS: FUROSEMIDE 40 MG/4 ML VIAL IVP SCH ×2 (07:00→13:58)
[2020-08-27] MEDS ORDERED: LEVOTHYROXINE 100 MCG TABLET PO SCH (07:00)
[2020-08-27] MEDS: MULTIVITAMIN TABLET PO SCH (08:31)
[2020-08-27] MEDS: PANTOPRAZOLE 40 MG TABLET PO SCH (08:31)
[2020-08-27] MEDS: FERROUS GLUCONATE 324 MG TABLET PO SCH (08:31)
[2020-08-27] MEDS: FOLIC ACID 1 MG TABLET PO SCH (08:31)
[2020-08-27] MEDS: ENOXAPARIN 40 MG/0.4 ML SYRINGE SUBQ SCH (08:31)
[2020-08-27] MEDS: rifAXIMin 550 MG TABLET PO SCH ×2 (08:31→22:00)
[2020-08-27] MEDS: SPIRONOLACTONE 25 MG TABLET PO SCH (08:32)
[2020-08-27] MEDS: LACTOBACILLUS RHAMNOSUS GG CAPSULE PO SCH (08:32)
[2020-08-27 10:30] LABS: INR 1.4 (0.8-1.2)
[2020-08-27] MEDS ORDERED: BUFFERED LIDOCAINE 10 ML SYRINGE ONE (12:51)
[2020-08-27] MEDS: SODIUM CHLORIDE FLUSH 0.9% 10 ML SYRINGE IVP PRN (13:58)
--- NOTE | 2020-08-27 14:46 | XRAY Report ---
PROCEDURE: Post Thoracentesis 1V CXR INDICATIONS: STATUS POST THORACENTESIS TECHNIQUE: One view of the chest was acquired. COMPARISON: Chest radiograph 08/26/2020 FINDINGS: Surgical changes and devices: None. Lungs and pleura: Moderate right-sided pleural effusion has mildly decreased in volume when compared to the exam from the day prior. There is atelectasis of the adjacent right lung base. No pneumothorax is seen. Mediastinum: Mediastinal contours appear normal. Heart size is normal. Bones and chest wall: No suspicious bony lesions. Overlying soft tissues appear unremarkable. IMPRESSION: Status post thoracentesis with a moderate residual right pleural effusion. No pneumothorax. Reviewed by: Luis E Snow MD on 08/27/2020 2:45 PM PDT Approved by: Luis E Snow MD on 08/27/2020 2:45 PM PDT Station ID: [id number]
[2020-08-27] MEDS ORDERED: BUFFERED LIDOCAINE 10 ML SYRINGE IU ONE (16:05)
--- NOTE | 2020-08-27 16:57 | PROVIDER PROGRESS NOTE ---
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 castanead at [phone] for the care plan. We did call . His nurse state he will call me back but I did not receive a phone call back yet. Now finally receive 's call. he recommend we do US of abdomen to check if Tips shunt was occluded and check transudate vs exudate with lab test. If Tips shunt was occluded, then pt needed to return to [facility] with Dr. Castaneda. Also consult with palliative care for pt. pt had 1.5liter of Thoracentesis fluids. Thoracentesis fluids was assigned to laboratory study. Current Medications - Current Medications Current Medications: Active Medications Acetaminophen (Acetaminophen 325 Mg Tablet) 650 mg PO Q4HR PRN PRN Reason: Pain 1 to 4 Last Admin: 08/27/20 02:44 Dose: 650 mg Documented by: Enoxaparin Sodium (Enoxaparin 40 Mg/0.4 Ml Syringe) 40 mg SUBQ DAILY [facility] Last Admin: 08/27/20 08:31 Dose: 40 mg Documented by: Ferrous Gluconate (Ferrous Gluconate 324 Mg Tablet) 324 mg PO DAILYWM SANDI Last Admin: 08/27/20 08:31 Dose: 324 mg Documented by: Folic Acid (Folic Acid 1 Mg Tablet) 1 mg PO DAILY SANDI Last Admin: 08/27/20 08:31 Dose: 1 mg Documented by: Furosemide (Furosemide 40 Mg/4 Ml Vial) 40 mg IVP BIDDIURETIC SANDI Last Admin: 08/27/20 13:58 Dose: 40 mg Documented by: Lactobacillus Rhamnosus (Lactobacillus Rhamnosus Gg Capsule) 1 cap PO DAILY SANDI Last Admin: 08/27/20 08:32 Dose: 1 cap Documented by: Lactulose (Lactulose 10 Gm /15 Ml Udc) 10 gm PO Q6HR SANDI Last Admin: 08/27/20 12:32 Dose: 10 gm Documented by: Levothyroxine Sodium (Levothyroxine 125 Mcg Tablet) 250 mcg PO QDAC SANDI Last Admin: 08/27/20 06:52 Dose: 250 mcg Documented by: Multivitamins (Multivitamin Tablet) 1 tab PO DAILYWM SANDI Last Admin: 08/27/20 08:31 Dose: 1 tab Documented by: Ondansetron HCl (Ondansetron Odt 4 Mg Tablet) 4 mg TL Q6HR PRN PRN Reason: Nausea / Vomiting Oxycodone HCl (Oxycodone 5 Mg Tablet) 5 mg PO Q4HR PRN PRN Reason: Pain 5 to 7 Last Admin: 08/27/20 02:44 Dose: 5 mg Documented by: Pantoprazole Sodium (Pantoprazole 40 Mg Tablet) 40 mg PO DAILY [facility] Last Admin: 08/27/20 08:31 Dose: 40 mg Documented by: Rifaximin (Rifaximin 550 Mg Tablet) 550 mg PO BID [facility] Last Admin: 08/27/20 08:31 Dose: 550 mg Documented by: Sodium Chloride (Sodium Chloride Flush 0.9% 10 Ml Syringe) 10 ml IVP PRN PRN PRN Reason: NEEDED PER PROVIDER ORDERS Last Admin: 08/27/20 13:58 Dose: 10 ml Documented by: Sodium Chloride (Sodium Chloride Flush 0.9% 10 Ml Syringe) 10 ml IVP 0100 ,0900,1700 [facility] Last Admin: 08/27/20 08:32 Dose: 10 ml Documented by: Spironolactone (Spironolactone 25 Mg Tablet) 50 mg PO DAILY [facility] Last Admin: 08/27/20 08:32 Dose: 50 mg Documented by: Levothyroxine [Synthroid] 250 mcg PO DAILY 07/27/19 Lactulose 15 ml PO Q6HR 07/08/20 Rifaximin [Xifaxan] 550 mg PO BID 07/08/20 Spironolactone [Aldactone] 50 mg PO DAILY 07/08/20 Folic Acid 1 mg PO DAILY 07/23/20 Cholecalciferol (Vitamin D3) [Vitamin D3] 1,000 mcg PO DAILY 08/19/20 Ferrous Gluconate 324 mg PO DAILY 08/19/20 Multivitamin 1 tablet PO DAILY 08/19/20 Pantoprazole Sodium 40 mg PO DAILY 08/19/20 Objective - Vital Signs/Intake & Output Vital Signs: Vital Signs x48h Temp Pulse Resp BP Pulse Ox 08/27/20 15:50 37.0 C 84 124/53 L 93 08/27/20 11:18 36.6 C 81 18 155/69 H 92 Intake & Output: Intake & Output 08/24/20 08/25/20 08/26/20 08/27/20 23:59 23:59 23:59 23:59 Intake Total 855 820 Output Total 200 900 Balance 655 -80 - Objective General Appearance: positive: Alert, Mild distress. negative: Lethargic Eyes Bilateral: positive: Normal inspection, PERRL, No lid inflammation ENT: positive: ENT inspection nml, No signs of dehydration. negative: Purulent nasal drainage Neck: positive: Nml inspection, Trachea midline. negative: Thyromegaly, Tracheal deviation Respiratory: positive: Chest non-tender, No respiratory distress, Rales. negative: Wheezes Cardiovascular: positive: Regular rate & rhythm, No murmur. negative: Tachycardia, Bradycardia, Systolic murmur, Diastolic murmur Peripheral Pulses: 2+ Radial (R), 2+ Radial (L) Abdomen: positive: Non-tender, Nml bowel sounds, No distention. negative: Tenderness Back: positive: Nml inspection Skin: positive: Color nml, Warm, Dry. negative: Cyanosis Extremities: positive: Non-tender, Full ROM, Nml appearance. negative: Calf tenderness Neurologic/Psychiatric: positive: Oriented x3, Motor nml, Sensation nml, Mood/affect nml. negative: Weakness, Sensory loss, Facial droop, Slurred/abnml speech - Lab Results Fish Bones: 08/27/20 05:28 08/27/20 05:28 Other Labs: Lab Results x24hrs 08/27/20 08/27/20 08/27/20 Range/Units 10:18 10:18 05:28 WBC (4.8-10.8) x10^3/uL RBC (4.70-6.10) 10^6/uL Hgb (14.0-18.0) g/dL Hct (42.0-52.0) % MCV (80.0-94.0) fL MCH (27.0-31.0) pg MCHC (32.0-36.0) g/dL RDW (12.0-15.0) % Plt Count (130-450) 10^3/uL MPV (7.4-11.4) fL PT 15.0 H (9.9-12.6) secs INR 1.4 H (0.8-1.2) Sodium (135-145) mmol/L Potassium (3.5-5.0) mmol/L Chloride (101-111) mmol/L Carbon Dioxide (21-32) mmol/L Anion Gap (6-13) BUN (6-20) mg/dL Creatinine (0.6-1.2) mg/dL Estimated GFR (MDRD) (>89) Glucose (70-100) mg/dL Calcium (8.5-10.3) mg/dL Total Bilirubin (0.2-1.0) mg/dL AST (10-42) IU/L ALT (10-60) IU/L Alkaline Phosphatase (42-121) IU/L Ammonia 48.4 H (7-35) umol/L Troponin I High Sens 31.3 H* (2.3-19.7) ng/L Total Protein (6.7-8.2) g/dL Albumin (3.2-5.5) g/dL Globulin (2.1-4.2) g/dL Albumin/Globulin Ratio (1.0-2.2) 08/27/20 08/27/20 Range/Units 05:28 05:28 WBC 9.2 (4.8-10.8) x10^3/uL RBC 3.49 L (4.70-6.10) 10^6/uL Hgb 10.3 L (14.0-18.0) g/dL Hct 31.9 L (42.0-52.0) % MCV 91.4 (80.0-94.0) fL MCH 29.5 (27.0-31.0) pg MCHC 32.3 (32.0-36.0) g/dL RDW 15.0 (12.0-15.0) % Plt Count 107 L (130-450) 10^3/uL MPV 9.0 (7.4-11.4) fL PT (9.9-12.6) secs INR (0.8-1.2) Sodium 133 L (135-145) mmol/L Potassium 3.6 (3.5-5.0) mmol/L Chloride 85 L (101-111) mmol/L Carbon Dioxide 40 H* (21-32) mmol/L Anion Gap 8.0 (6-13) BUN 15 (6-20) mg/dL Creatinine 1.4 H (0.6-1.2) mg/dL Estimated GFR (MDRD) 51 L (>89) Glucose 118 H (70-100) mg/dL Calcium 8.6 (8.5-10.3) mg/dL Total Bilirubin 0.7 (0.2-1.0) mg/dL AST 32 (10-42) IU/L ALT 18 (10-60) IU/L Alkaline Phosphatase 125 H (42-121) IU/L Ammonia (7-35) umol/L Troponin I High Sens (2.3-19.7) ng/L Total Protein 6.7 (6.7-8.2) g/dL Albumin 2.5 L (3.2-5.5) g/dL Globulin 4.2 (2.1-4.2) g/dL Albumin/Globulin Ratio 0.6 L (1.0-2.2) ABX Reporting Has patient been on IV antibiotics over the past 48 hours?: No Assessment/Plan - Problem List (1) Respiratory failure with hypoxia Impression: Patient report he feel better and less SOB after thoracentesis, patient had a 1.5 L of thoracentesis fluid taken on today, But he still feels shortness of breathing. Patient had a 93% sats on 3 L of oxygen. We will continue Lasix,Continue DuoNeb PRN, patient may have undiagnosed COPD given his smoking history, Continue supplemental oxygen As needed, We will have ultrasound of the abdomen study to check TIPS shunt, We will have thoracentesis fluid study to distinguish transadate vs exudate (2) Pleural effusion Conclusion/Plan: Patient had thoracentesis done today, patient had a 1.5 L of thoracentesis fluids removed. But chest x-ray still show patient had moderate sized pleural effusion in the right of the chest. We will discuss with interventional r adiologist. Patient feel shortness of breathing improved but he still feels shortness of breathing. (3) Anasarca Patient had albumin 2.5, we will give one-time albumin intravenous. (4) Cirrhosis Conclusion/Plan: Status post TIPS, will Following Dr. Castaneda, order US of abdomen to monitor if Tips occluded, and lab study of Thoracentesis fluids Continue to monitor labs. (5) Hypothyroidism Conclusion/Plan: Stable. TSH is normal in a few days ago Resume home meds. (6) Elevated troponin Conclusion/Plan: pt denies chest pain, Mild elevation in troponin. No evidence of chest pain. Likely demand. (7) GERD (gastroesophageal reflux disease) Conclusion/Plan: Cont home PPI (8) CKD (chronic kidney disease) Conclusion/Plan: CKD stable with creatinine of 1.3, approximately same as during previous hospital stay. Monitor labs given the need for diuresis. (9) Anemia in chronic kidney disease Conclusion/Plan: H&H stable. Resume folic acid and iron supplementation. Monitor labs
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
--- NOTE | 2020-08-27 17:12 | Ultrasound Report ---
PROCEDURE: Thoracentesis Puncture INDICATIONS: SOB TECHNIQUE: The indications, alternatives, benefits, risks, and complications of the procedure were explained to the patient. Written informed consent was obtained and placed in the chart. The chest was examined sonographically, and an appropriate site was chosen for thoracentesis. The skin was prepared and luz ped in the usual sterile fashion, and 1% lidocaine was infiltrated from the skin down through the ple ural surface. A 19-gauge catheter-covered needle was then introduced into the pleural space, the cat heter was advanced and the needle was withdrawn, and thereafter pleural fluid was aspirated. The cat heter was then removed and a dressing was applied. COMPARISON: Chest radiographs 08/26/2020. Thoracentesis 08/20/2020. FINDINGS: Access site: Right lower hemithorax. Needle: One-Step centesis catheter with introducer needle. Fluid volume and description: 1.5 L of ashok fluid. Fluid sent for diagnostic testing: Not requested. Medications: 1% lidocaine for local anaesthesia. Complications: None; post-procedural chest radiograph is pending to assess for pneumothorax. IMPRESSION: Successful ultrasound-guided thoracentesis. Reviewed by: Luis E Snow MD on 08/27/2020 5:11 PM PDT Approved by: Luis E Snow MD on 08/27/2020 5:11 PM PDT Station ID: [id number]
[2020-08-27] MEDS ORDERED: ALBUMIN 25% 12.5 GM/50 ML VIAL IV STA (18:09)
[2020-08-27 18:42] LABS: BF COLOR YELLOW; CC,BF RBC 13000 /mm^3; CC,BF WBC 906 /mm^3; LYMPHOCYTES %,BODY FLUID 78 %; MACROPHAGES %,BODY FLUID 1 %; MESOTHELIAL %, BF 10 %; MONOCYTES %,BODY FLUID 3 %; NEUTROPHILS %, BF 8 %
[2020-08-27 18:43] LABS: BF CLARITY CLOUDY; BF SOURCE PLEURAL
--- NOTE | 2020-08-27 21:09 | Ultrasound Report ---
PROCEDURE: Doppler Limited INDICATIONS: S/P TIPS, ck if TIPS occluded TECHNIQUE: Chest was performed of the liver. COMPARISON: None. FINDINGS: Severely limited examination. The main portal vein patient with hepatopedal flow 1.5 cm in diameter. The TIPS stent is patent with aliasing flow signal. Unable to assess direction of flow. Hep atic artery is patent. Hepatic veins are not imaged. IMPRESSION: 1. Severely limited examination. The TIPS appears patent although the direction of flow within the TI PS catheter cannot be determined because of artifacts. 2. The main portal vein is patent with hepatopedal flow. Reviewed by: New Augustin MD on 08/27/2020 9:08 PM PDT Approved by: New Augustin MD on 08/27/2020 9:08 PM PDT Station ID: [id number]
[2020-08-28] MEDS: ACETAMINOPHEN 325 MG TABLET PO PRN ×3 (01:12→22:36)
[2020-08-28] MEDS: oxyCODONE 5 MG TABLET PO PRN ×3 (01:12→22:36)
[2020-08-28] MEDS: SODIUM CHLORIDE FLUSH 0.9% 10 ML SYRINGE IVP SCH ×3 (01:14→15:56)
[2020-08-28] MEDS: LACTULOSE 10 GM /15 ML UDC PO SCH ×4 (02:52→17:36)
[2020-08-28 05:25] LABS: MEAN CORPUSCULAR HEMOGLOBIN 29.5 pg (27.0-31.0); MEAN CORPUSCULAR HGB CONC 32.3 g/dL (32.0-36.0); MEAN CORPUSCULAR VOLUME 91.4 fL (80.0-94.0); MEAN PLATELET VOLUME 9.3 fL (7.4-11.4); RED BLOOD COUNT 3.39 10^6/uL (4.70-6.10); RED CELL DISTRIBUTION WIDTH 15.2 % (12.0-15.0); WHITE BLOOD COUNT 9.5 x10^3/uL (4.8-10.8)
[2020-08-28 05:31] LABS: ALBUMIN 2.6 g/dL (3.2-5.5); ALBUMIN/GLOBULIN RATIO 0.6 (1.0-2.2); BILIRUBIN,TOTAL 1.1 mg/dL (0.2-1.0); CALCIUM 8.6 mg/dL (8.5-10.3); CREATININE 1.6 mg/dL (0.6-1.2); POTASSIUM 3.9 mmol/L (3.5-5.0); TOTAL PROTEIN 6.7 g/dL (6.7-8.2)
[2020-08-28] MEDS: FUROSEMIDE 40 MG/4 ML VIAL IVP SCH ×2 (06:28→14:08)
[2020-08-28] MEDS: SODIUM CHLORIDE FLUSH 0.9% 10 ML SYRINGE IVP PRN ×2 (06:29→14:08)
[2020-08-28] MEDS: LEVOTHYROXINE 125 MCG TABLET PO SCH (06:29)
[2020-08-28] MEDS: LACTOBACILLUS RHAMNOSUS GG CAPSULE PO SCH (08:13)
[2020-08-28] MEDS: PANTOPRAZOLE 40 MG TABLET PO SCH (08:13)
[2020-08-28] MEDS: FERROUS GLUCONATE 324 MG TABLET PO SCH (08:13)
[2020-08-28] MEDS: MULTIVITAMIN TABLET PO SCH (08:13)
[2020-08-28] MEDS: SPIRONOLACTONE 25 MG TABLET PO SCH (08:13)
[2020-08-28] MEDS: rifAXIMin 550 MG TABLET PO SCH ×2 (08:13→20:29)
[2020-08-28] MEDS: FOLIC ACID 1 MG TABLET PO SCH (08:13)
[2020-08-28] MEDS: ENOXAPARIN 40 MG/0.4 ML SYRINGE SUBQ SCH (08:14)
[2020-08-28] MEDS ORDERED: ALBUMIN 25% 12.5 GM/50 ML VIAL IV STA (09:06)
[2020-08-28] MEDS ORDERED: DEXTROSE 5%-0.9% NACL 1,000 ML IV SCH ×2 (10:00→23:30)
--- NOTE | 2020-08-28 10:05 | Ultrasound Report ---
PROCEDURE: Abdomen Limited INDICATIONS: SOB, size of ascites TECHNIQUE: Real-time focused scanning was performed of the abdomen, with image documentation. COMPARISON: 08/27/2020 FINDINGS: Trace ascites noted in the right upper quadrant, right lower quadrant and left upper jeane drant. IMPRESSION: Trace ascites. Reviewed by: Zainab Myrick MD, PhD on 08/28/2020 10:04 AM PDT Approved by: Zainab Myrick MD, PhD on 08/28/2020 10:04 AM PDT Station ID: [id number]
--- NOTE | 2020-08-28 16:05 | PROVIDER PROGRESS NOTE ---
Assessment/Plan - Problem List (1) Respiratory failure with hypoxia Assessment/Plan: 08/28 Patient reported his shortness of breathing is slightly better. Chest x-ray show still having medium sized of right pleural effusion. We will consult with general surgeon to Thoracentesis with a chest tube on tomorrow, Hopefully remove the pleural effusion to release patient's symptoms. Patient report he feel better and less SOB after thoracentesis, patient had a 1.5 L of thoracentesis fluid taken on today, But he still feels shortness of breathing. Patient had a 93% sats on 3 L of oxygen. We will continue La six,Continue DuoNeb PRN, patient may have undiagnosed COPD given his smoking history, Continue supplemental oxygen As needed, We will have ultrasound of the abdomen study to check TIPS shunt, We will have thoracentesis fluid study to distinguish transadate vs exudate (2) Pleural effusion Conclusion/Plan: 08/28 consult with general surgeon to Thoracentesis with a chest tube on tomorrow, Hopefully remove the pleural effusion to release patient's symptoms. Patient had thoracentesis done today, patient had a 1.5 L of thoracentesis fluids removed. But chest x-ray still show patient had moderate sized pleural effusion in the right of the chest. We will discuss with interventional radiologist. Patient feel shortness of breathing improved but he still feels shortness of breathing. (3) Anasarca Patient had albumin 2.5, we will give one-time albumin intravenous. (4) Cirrhosis Conclusion/Plan: 08/28 US of abdomen reveals Tips appear patent. lab study of Thoracentesis fluids is pending. Status post TIPS, will Following Dr. Castaneda, order US of abdomen to monitor if Tips occluded, and lab study of Thoracentesis fluids Continue to monitor labs. (5) Hypothyroidism Conclusion/Plan: Stable. TSH is normal in a few days ago Resume home meds. (6) Elevated troponin Conclusion/Plan: pt denies chest pain, Mild elevation in troponin. No evidence of chest pain. Likely demand. (7) GERD (gastroesophageal reflux disease) Conclusion/Plan: Cont home PPI (8) CKD (chronic kidney disease) Conclusion/Plan: 08/28 slight elevated creatinine, pt is on IV bid of Lasix. we will resume his home lasix dosage after his SOB is improved significantly. CKD stable with creatinine of 1.3, approximately same as during previous hospital stay. Monitor labs given the need for diuresis. (9) Anemia in chronic kidney disease Conclusion/Plan: H&H stable. Resume folic acid and iron supplementation. Monitor labs - Current Meds Current Meds: Current Medications Generic Name Dose Route Start Last Admin Trade Name Freq PRN Reason Stop Dose Admin Acetaminophen 650 mg 08/26/20 11:13 08/28/20 15:56 Acetaminophen 325 Mg Tablet PO 650 mg Q4HR PRN Administration Pain 1 to 4 Enoxaparin Sodium 40 mg 08/27/20 09:00 08/28/20 08:14 Enoxaparin 40 Mg/0.4 Ml Syringe SUBQ 40 mg DAILY SANDI Administration Ferrous Gluconate 324 mg 08/27/20 08:00 08/28/20 08:13 Ferrous Gluconate 324 Mg Tablet PO 324 mg DAILYWM [facility] Administration Folic Acid 1 mg 08/27/20 09:00 08/28/20 08:13 Folic Acid 1 Mg Tablet PO 1 mg DAILY S[facility]I Administration Furosemide 40 mg 08/27/20 14:00 08/28/20 14:08 Furosemide 40 Mg/4 Ml Vial IVP 40 mg BIDDIURETIC [facility]ANDI Administration Lactobacillus Rhamnosus 1 cap 08/27/20 09:00 08/28/20 08:13 Lactobacillus Rhamnosus Gg Capsule PO 1 cap DAILY SANDI Administration Lactulose 10 gm 08/26/20 18:30 08/28/20 12:10 Lactulose 10 Gm /15 Ml Udc PO 10 gm Q6HR SANDI Administration Levothyroxine Sodium 250 mcg 08/27/20 07:00 08/28/20 06:29 Levothyroxine 125 Mcg Tablet PO 250 mcg QDAC SANDI Administration Multivitamins 1 tab 08/27/20 08:00 08/28/20 08:13 Multivitamin Tablet PO 1 tab DAILYWM [facility] Administration Oxycodone HCl 5 mg 08/26/20 11:13 08/28/20 15:56 Oxycodone 5 Mg Tablet PO 5 mg Q4HR PRN Administration Pain 5 to 7 Pantoprazole Sodium 40 mg 08/27/20 09:00 08/28/20 08:13 Pantoprazole 40 Mg Tablet PO 40 mg DAILY [facility] Administration Rifaximin 550 mg 08/26/20 21:00 08/28/20 08:13 Rifaximin 550 Mg Tablet PO 550 mg BID SANDI Administration Sodium Chloride 10 ml 06/28/21 11:13 08/28/20 14:08 Sodium Chloride Flush 0.9% 10 Ml Syringe IVP 10 ml PRN PRN Administration NEEDED PER PROVIDER ORDERS Sodium Chloride 10 ml 08/26/20 17:00 08/28/20 15:56 Sodium Chloride Flush 0.9% 10 Ml Syringe IVP 10 ml 0100,0900,1700 S[facility]I Administration Spironolactone 50 mg 08/27/20 09:00 08/28/20 08:13 Spironolactone 25 Mg Tablet PO 50 mg DAILY SANDI Administration - Lab Result Fish Bone Diagrams: 08/28/20 05:00 08/28/20 05:00 - Additional Planning My Orders: My Active Orders 08/27/20 17:10 Miscellaneous Laboratory Order [LAB] Urgent 08/28/20 08:56 Incentive Spirometry - RT [RC] TID 08/28/20 Lunch Regular Diet [DIET] Subjective - Subjective Patient Reports: Feeling Better Objective Vital Signs: Vital Signs - 24 hr 08/27/20 08/28/20 08/28/20 22:13 00:51 05:00 Temperature 37.2 C 36.6 C 37.0 C Heart Rate [ 78 76 71 Brachial] Respiratory 18 18 18 Rate Blood Pressure 123/54 L [Left Brachial artery] Blood Pressure 130/40 L 122/39 L [Right Brachial artery] O2 Saturation 94 91 L 94 08/28/20 08/28/20 08/28/20 06:08 06:12 07:38 Temperature 36.6 C Heart Rate [ 77 79 Brachial] Respiratory 18 Rate Blood Pressure [Left Brachial artery] Blood Pressure 136/59 H 133/58 H 125/46 L [Right Brachial artery] O2 Saturation 93 95 08/28/20 11:01 Temperature 36.6 C Heart Rate [ 81 Brachial] Respiratory 20 Rate Blood Pressure 137/66 H [Left Brachial artery] Blood Pressure [Right Brachial artery] O2 Saturation 93 Oxygen O2 Source Room air I&O (Last 24 Hrs): Intake and Output Totals x24h 08/26/20 08/27/20 08/28/20 23:59 23:59 23:59 Intake Total 855 1230 410 Output Total 200 1300 1150 Balance 655 -70 -740 General: Alert, Oriented x3, Cooperative, No acute distress HEENT: Atraumatic Neck: Supple Lymphatic: no adenopathy Neuro: Alert, Non Focal, Oriented Times 3 Cardiovascular: Regular rate, Normal S1, Normal S2 Respiratory: Chest non-tender, No respiratory distress Abdomen: Normal bowel sounds, Soft Extremities: Normal pulses - Results Results: Laboratory Results WBC 9.5 x10^3/uL (4.8-10.8) 08/28/20 05:00 RBC 3.39 10^6/uL (4.70-6.10) L 08/28/20 05:00 Hgb 10.0 g/dL (14.0-18.0) L 08/28/20 05:00 Hct 31.0 % (42.0-52.0) L 08/28/20 05:00 MCV 91.4 fL (80.0-94.0) 08/28/20 05:00 MCH 29.5 pg (27.0-31.0) 08/28/20 05:00 MCHC 32.3 g/dL (32.0-36.0) 08/28/20 05:00 RDW 15.2 % (12.0-15.0) H 08/28/20 05:00 Plt Count 113 10^3/uL (130-450) L 08/28/20 05:00 MPV 9.3 fL (7.4-11.4) 08/28/20 05:00 Neut # (Auto) 5.4 10^3/uL (1.5-6.6) 08/26/20 09:50 Lymph # (Auto) 1.1 10^3/uL (1.5-3.5) L 08/26/20 09:50 Winkler # (Auto) 0.9 10^3/uL (0.0-1.0) 08/26/20 09:50 Eos # (Auto) 0.2 10^3/uL (0.0-0.7) 08/26/20 09:50 Baso # (Auto) 0.1 10^3/uL (0.0-0.1) 08/26/20 09:50 Absolute Nucleated RBC 0.00 x10^3/uL 08/26/20 09:50 Nucleated RBC % 0.0 /100WBC 08/26/20 09:50 PT 15.0 secs (9.9-12.6) H 08/27/20 10:18 INR 1.4 (0.8-1.2) H 08/27/20 10:18 VBG pH 7.376 (7.31-7.41) 08/26/20 09:50 VBG pCO2 68.6 mmHg (41-51) H 08/26/20 09:50 VBG pO2 48.8 mmHg (25-47) H 08/26/20 09:50 VBG HCO3 39.3 mmol/L (23-28) H 08/26/20 09:50 VBG Total CO2 41.4 mmol/L (24-29) H 08/26/20 09:50 VBG O2 Saturation 82.5 % (60-80) H 08/26/20 09:50 VBG Base Excess 11.6 mmol/L (-2 - +2) H 08/26/20 09:50 Sodium 132 mmol/L (135-145) L 08/28/20 05:00 Potassium 3.9 mmol/L (3.5-5.0) 08/28/20 05:00 Chloride 85 mmol/L (101-111) L 08/28/20 05:00 Carbon Dioxide 38 mmol/L (21-32) H 08/28/20 05:00 Anion Gap 9.0 (6-13) 08/28/20 05:00 BUN 16 mg/dL (6-20) 08/28/20 05:00 Creatinine 1.6 mg/dL (0.6-1.2) H 08/28/20 05:00 Estimated GFR (MDRD) 43 (>89) L 08/28/20 05:00 Glucose 98 mg/dL (70-100) 08/28/20 05:00 Lactic Acid 1.5 mmol/L (0.5-2.2) 08/26/20 10:50 Calcium 8.6 mg/dL (8.5-10.3) 08/28/20 05:00 Total Bilirubin 1.1 mg/dL (0.2-1.0) H 08/28/20 05:00 AST 39 IU/L (10-42) 08/28/20 05:00 ALT 18 IU/L (10-60) 08/28/20 05:00 Alkaline Phosphatase 132 IU/L (42-121) H 08/28/20 05:00 Ammonia 48.4 umol/L (7-35) H 08/27/20 10:18 Troponin I High Sens 31.3 ng/L (2.3-19.7) H* 08/27/20 05:28 B-Natriuretic Peptide 101 pg/mL (5-100) H 08/26/20 09:50 Total Protein 6.7 g/dL (6.7-8.2) 08/28/20 05:00 Albumin 2.6 g/dL (3.2-5.5) L 08/28/20 05:00 Globulin 4.1 g/dL (2.1-4.2) 08/28/20 05:00 Albumin/Globulin Ratio 0.6 (1.0-2.2) L 08/28/20 05:00 Lipase 45 U/L (22-51) 08/26/20 09:50 Tumor Marker AFP 3.7 ng/mL (<6.1) 08/27/20 09:50 Fluid Source PLEURAL 08/27/20 13:50 Fluid Color YELLOW 08/27/20 13:50 Fluid Clarity CLOUDY 08/27/20 13:50 Fluid WBC 906 /mm^3 08/27/20 13:50 Fluid RBC 67295 /mm^3 08/27/20 13:50 Fluid Neutrophils % 8 % 08/27/20 13:50 Fluid Lymphocytes % 78 % 08/27/20 13:50 Fluid Monocytes % 3 % 08/27/20 13:50 Fluid Macrophages % 1 % 08/27/20 13:50 Fld Mesothelial Cell % 10 % 08/27/20 13:50 Nasal Adenovirus (PCR) NOT DETECTED 08/26/20 10:00 Nasal B. parapertussis DNA (PCR) NOT DETECTED 08/26/20 10:00 Nasal Coronavir 229E PCR NOT DETECTED 08/26/20 10:00 Nasal Coronavir HKU1 PCR NOT DETECTED 08/26/20 10:00 Nasal Coronavir NL63 PCR NOT DETECTED 08/26/20 10:00 Nasal Coronavir OC43 PCR NOT DETECTED 08/26/20 10:00 Nasal Enterovir/Rhinovir PCR NOT DETECTED 08/26/20 10:00 Nasal Influenza B PCR NOT DETECTED 08/26/20 10:00 Nasal Influenza A PCR NOT DETECTED 08/26/20 10:00 Nasal Parainfluen 1 PCR NOT DETECTED 08/26/20 10:00 Nasal Parainfluen 2 PCR NOT DETECTED 08/26/20 10:00 Nasal Parainfluen 3 PCR NOT DETECTED 08/26/20 10:00 Nasal Parainfluen 4 PCR NOT DETECTED 08/26/20 10:00 Nasal RSV (PCR) NOT DETECTED 08/26/20 10:00 Nasal B.pertussis DNA PCR NOT DETECTED 08/26/20 10:00 Nasal C.pneumoniae (PCR) NOT DETECTED 08/26/20 10:00 Greg Human Metapneumo PCR NOT DETECTED 08/26/20 10:00 Nasal M.pneumoniae (PCR) NOT DETECTED 08/26/20 10:00 Nasal SARS-CoV-2 (PCR) NOT DETECTED 08/26/20 10:00 ABX Reporting Has patient been on IV antibiotics over the past 48 hours?: No Current Medications - Current Medications Current Medications: Active Medications Acetaminophen (Acetaminophen 325 Mg Tablet) 650 mg PO Q4HR PRN PRN Reason: Pain 1 to 4 Last Admin: 08/28/20 15:56 Dose: 650 mg Documented by: Enoxaparin Sodium (Enoxaparin 40 Mg/0.4 Ml Syringe) 40 mg SUBQ DAILY [facility] Last Admin: 08/28/20 08:14 Dose: 40 mg Documented by: Ferrous Gluconate (Ferrous Gluconate 324 Mg Tablet) 324 mg PO DAILYWM [facility] Last Admin: 08/28/20 08:13 Dose: 324 mg Documented by: Folic Acid (Folic Acid 1 Mg Tablet) 1 mg PO DAILY [facility] Last Admin: 08/28/20 08:13 Dose: 1 mg Documented by: Furosemide (Furosemide 40 Mg/4 Ml Vial) 40 mg IVP BIDDIURETIC [facility] Last Admin: 08/28/20 14:08 Dose: 40 mg Documented by: Lactobacillus Rhamnosus (Lactobacillus Rhamnosus Gg Capsule) 1 cap PO DAILY [facility] Last Admin: 08/28/20 08:13 Dose: 1 cap Documented by: Lactulose (Lactulose 10 Gm /15 Ml Udc) 10 gm PO Q6HR [facility] Last Admin: 08/28/20 12:10 Dose: 10 gm Documented by: Levothyroxine Sodium (Levothyroxine 125 Mcg Tablet) 250 mcg PO QDAC [facility] Last Admin: 08/28/20 06:29 Dose: 250 mcg Documented by: Multivitamins (Multivitamin Tablet) 1 tab PO DAILYWM [facility] Last Admin: 08/28/20 08:13 Dose: 1 tab Documented by: Ondansetron HCl (Ondansetron Odt 4 Mg Tablet) 4 mg TL Q6HR PRN PRN Reason: Nausea / Vomiting Oxycodone HCl (Oxycodone 5 Mg Tablet) 5 mg PO Q4HR PRN PRN Reason: Pain 5 to 7 Last Admin: 08/28/20 15:56 Dose: 5 mg Documented by: Pantoprazole Sodium (Pantoprazole 40 Mg Tablet) 40 mg PO DAILY [facility] Last Admin: 08/28/20 08:13 Dose: 40 mg Documented by: Rifaximin (Rifaximin 550 Mg Tablet) 550 mg PO BID [facility] Last Admin: 08/28/20 08:13 Dose: 550 mg Documented by: Sodium Chloride (Sodium Chloride Flush 0.9% 10 Ml Syringe) 10 ml IVP PRN PRN PRN Reason: NEEDED PER PROVIDER ORDERS Last Admin: 08/28/20 14:08 Dose: 10 ml Documented by: Sodium Chloride (Sodium Chloride Flush 0.9% 10 Ml Syringe) 10 ml IVP 0100,090 0,1700 [facility] Last Admin: 08/28/20 15:56 Dose: 10 ml Documented by: Spironolactone (Spironolactone 25 Mg Tablet) 50 mg PO DAILY [facility] Last Admin: 08/28/20 08:13 Dose: 50 mg Documented by: Levothyroxine [Synthroid] 250 mcg PO DAILY 07/27/19 Lactulose 15 ml PO Q6HR 07/08/20 Rifaximin [Xifaxan] 550 mg PO BID 07/08/20 Spironolactone [Aldactone] 50 mg PO DAILY 07/08/20 Folic Acid 1 mg PO DAILY 07/23/20 Cholecalciferol (Vitamin D3) [Vitamin D3] 1,000 mcg PO DAILY 08/19/20 Ferrous Gluconate 324 mg PO DAILY 08/19/20 Multivitamin 1 tablet PO DAILY 08/19/20 Pantoprazole Sodium 40 mg PO DAILY 08/19/20
[2020-08-28] MEDS: LIDOCAINE OINTMENT 5% 35.44 GM TUBE TOP SCH (20:32)
[2020-08-29] MEDS: LACTULOSE 10 GM /15 ML UDC PO SCH ×5 (00:13→23:36)
[2020-08-29] MEDS: SODIUM CHLORIDE FLUSH 0.9% 10 ML SYRINGE IVP SCH ×4 (00:21→23:36)
[2020-08-29 05:18] LABS: HCT - HEMATOCRIT 32.2 % (42.0-52.0); HGB - HEMOGLOBIN 10.4 g/dL (14.0-18.0); MEAN CORPUSCULAR HEMOGLOBIN 29.4 pg (27.0-31.0); MEAN CORPUSCULAR HGB CONC 32.3 g/dL (32.0-36.0); MEAN PLATELET VOLUME 9.3 fL (7.4-11.4); RED BLOOD COUNT 3.54 10^6/uL (4.70-6.10); RED CELL DISTRIBUTION WIDTH 15.2 % (12.0-15.0); WHITE BLOOD COUNT 9.3 x10^3/uL (4.8-10.8)
[2020-08-29 05:29] LABS: ALBUMIN 2.7 g/dL (3.2-5.5); ALBUMIN/GLOBULIN RATIO 0.6 (1.0-2.2); BILIRUBIN,TOTAL 0.9 mg/dL (0.2-1.0); CALCIUM 8.6 mg/dL (8.5-10.3); CREATININE 1.6 mg/dL (0.6-1.2); POTASSIUM 3.6 mmol/L (3.5-5.0); TOTAL PROTEIN 6.9 g/dL (6.7-8.2)
[2020-08-29] MEDS: FUROSEMIDE 40 MG/4 ML VIAL IVP SCH ×2 (06:06→13:45)
[2020-08-29] MEDS: LEVOTHYROXINE 125 MCG TABLET PO SCH (06:09)
[2020-08-29] MEDS: MULTIVITAMIN TABLET PO SCH (09:01)
[2020-08-29] MEDS: FERROUS GLUCONATE 324 MG TABLET PO SCH (09:01)
[2020-08-29] MEDS: rifAXIMin 550 MG TABLET PO SCH ×2 (09:02→20:23)
[2020-08-29] MEDS: SPIRONOLACTONE 25 MG TABLET PO SCH (09:02)
[2020-08-29] MEDS: FOLIC ACID 1 MG TABLET PO SCH (09:02)
[2020-08-29] MEDS: PANTOPRAZOLE 40 MG TABLET PO SCH (09:02)
[2020-08-29] MEDS: LACTOBACILLUS RHAMNOSUS GG CAPSULE PO SCH (09:02)
[2020-08-29] MEDS: ENOXAPARIN 40 MG/0.4 ML SYRINGE SUBQ SCH (09:03)
[2020-08-29] MEDS: LIDOCAINE OINTMENT 5% 35.44 GM TUBE TOP SCH ×4 (09:03→20:23)
[2020-08-29 13:08] LABS: INR 1.3 (0.8-1.2); PT - PROTHROMBIN TIME 14.3 secs (9.9-12.6)
--- NOTE | 2020-08-29 14:37 | XRAY Report ---
PROCEDURE: Chest 1 View X-Ray INDICATIONS: sob TECHNIQUE: One view of the chest was acquired. COMPARISON: 08/27/2020 FINDINGS: Surgical changes and devices: None. Lungs and pleura: No pneumothorax. Moderate right basilar airspace opacity. Small right pleural effu shantel. Mediastinum: Mediastinal contours appear normal. Heart size is normal. Bones and chest wall: No suspicious bony lesions. Overlying soft tissues appear unremarkable. IMPRESSION: 1. No change in right lower lobe pneumonia with small parapneumonic effusion. 2. Follow-up PA and lateral chest x-rays or chest CT is recommended to ensure resolution, and to excl ude underlying neoplasm. Reviewed by: Lissy Luke MD on 08/29/2020 2:36 PM PDT Approved by: Lissy Luke MD on 08/29/2020 2:36 PM PDT Station ID: [id number]
[2020-08-29] MEDS: ACETAMINOPHEN 325 MG TABLET PO PRN ×2 (16:47→23:36)
--- NOTE | 2020-08-29 16:51 | PROVIDER PROGRESS NOTE ---
Assessment/Plan - Problem List (1) Respiratory failure with hypoxia Assessment/Plan: 08/29, pt has no acute Respiratory distress, Patient is comfortable laying in the bed. The patient increase of his oxygen need, he need 6 liter of O2 and has 92% sat. But the patient has no fever, his WBC is in the normal range, and patient does not present cough and wheezy clinically. Patient report he has white phlegm. new CXR reveals no change in right lower lobe pneumonia with small parapneumonic effusion. we will order CT of chest before having chest tube. continue supplement of O2, continue diuretics. Continue vital signs monitor closely 08/28 Patient reported his shortness of breathing is slightly better. Chest x-ray show still having medium sized of right pleural effusion. We will consult with general surgeon to Thoracentesis with a chest tube on tomorrow, Hopefully remove the pleural effusion to release patient's symptoms. Patient report he feel better and less SOB after thoracentesis, patient had a 1.5 L of thoracentesis fluid taken on today, But he still feels shortness of breathing. Patient had a 93% sats on 3 L of oxygen. We will continue Lasix,Continue DuoNeb PRN, patient may have undiagnosed COPD given his smoking history, Continue supplemental oxygen As needed, We will have ultrasound of the abdomen study to check TIPS shunt, We will have thoracentesis fluid study to distinguish transadate vs exudate (2) Pleural effusion Conclusion/Plan: 08/29 pt is planned to have CT of chest before possible chest tube, continue Lasix IV 08/28 consult with general surgeon to have chest tube on tomorrow, Hopefully remove the pleural effusion to release patient's symptoms. Patient had thoracentesis done today, patient had a 1.5 L of thoracentesis fluids removed. But chest x-ray still show patient had moderate sized pleural effusion in the right of the chest. We will discuss with interventional radiologist. Patient feel shortness of breathing improved but he still feels shortness of breathing. (3) Anasarca Patient had albumin 2.5, we will give one-time albumin intravenous. (4) Cirrhosis Conclusion/Plan: 08/28 US of abdomen reveals Tips appear patent. lab study of Thoracentesis fluids is pending. Status post TIPS, will Following Dr. Castaneda, order US of abdomen to monitor if Tips occluded, and lab study of Thoracentesis fluids Continue to monitor labs. (5) Hypothyroidism Conclusion/Plan: Stable. TSH is normal in a few days ago Resume home meds. (6) Elevated troponin Conclusion/Plan: pt denies chest pain, Mild elevation in troponin. No evidence of chest pain. Likely demand. (7) GERD (gastroesophageal reflux disease) Conclusion/Plan: Cont home PPI (8) CKD (chronic kidney disease) Conclusion/Plan: 08/28 slight elevated creatinine, pt is on IV bid of Lasix. we will resume his home lasix dosage after his SOB is improved significantly. CKD stable with creatinine of 1.3, approximately same as during previous hospital stay. Monitor labs given the need for diuresis. (9) Anemia in chronic kidney disease Conclusion/Plan: H&H stable. Resume folic acid and iron supplementation. Monitor labs - Current Meds Current Meds: Current Medications Generic Name Dose Route Start Last Admin Trade Name Freq PRN Reason Stop Dose Admin Enoxaparin Sodium 40 mg 08/27/20 09:00 08/29/20 09:03 Enoxaparin 40 Mg/0.4 Ml Syringe SUBQ 40 mg DAILY SANDI Administration Ferrous Gluconate 324 mg 08/27/20 08:00 08/29/20 09:01 Ferrous Gluconate 324 Mg Tablet PO Not Given DAILYWM ASNDI Folic Acid 1 mg 08/27/20 09:00 08/29/20 09:02 Folic Acid 1 Mg Tablet PO 1 mg DAILY SANDI Administration Furosemide 40 mg 08/27/20 14:00 08/29/20 13:45 Furosemide 40 Mg/4 Ml Vial IVP 40 mg BIDDIURETIC SANDI Administration Lactobacillus Rhamnosus 1 cap 08/27/20 09:00 08/29/20 09:02 Lactobacillus Rhamnosus Gg Capsule PO 1 cap DAILY SANDI Administration Lactulose 10 gm 08/26/20 18:30 08/29/20 12:33 Lactulose 10 Gm /15 Ml Udc PO 10 gm Q6HR SANDI Administration Levothyroxine Sodium 250 mcg 08/27/20 07:00 08/29/20 06:09 Levothyroxine 125 Mcg Tablet PO 250 mcg QDAC SANDI Administration Lidocaine 1 applic 08/28/20 21:00 08/29/20 16:36 Lidocaine Ointment 5% 35.44 Gm Tube TOP 1 applic QID SANDI Administration Multivitamins 1 tab 08/27/20 08:00 08/29/20 09:01 Multivitamin Tablet PO Not Given DAILYWM SANDI Oxycodone HCl 5 mg 08/26/20 11:13 08/28/20 22:36 Oxycodone 5 Mg Tablet PO 5 mg Q4HR PRN Administration Pain 5 to 7 Pantoprazole Sodium 40 mg 08/27/20 09:00 08/29/20 09:02 Pantoprazole 40 Mg Tablet PO 40 mg DAILY SANDI Administration Rifaximin 550 mg 08/26/20 21:00 08/29/20 09:02 Rifaximin 550 Mg Tablet PO 550 mg BID SANDI Administration Sodium Chloride 10 ml 08/26/20 11:13 08/28/20 14:08 Sodium Chloride Flush 0.9% 10 Ml Syringe IVP 10 ml PRN PRN Administration NEEDED PER PROVIDER ORDERS Sodium Chloride 10 ml 08/26/20 17:00 08/29/20 16:36 Sodium Chloride Flush 0.9% 10 Ml Syringe IVP 10 ml 0100,0900,1700 SANDI Administration Spironolactone 50 mg 08/27/20 09:00 08/29/20 09:02 Spironolactone 25 Mg Tablet PO 50 mg DAILY SANDI Administration - Lab Result Fish Bone Diagrams: 08/29/20 04:43 08/29/20 04:43 - Additional Planning My Orders: My Active Orders 08/29/20 Evaluate and Treat PT [PT] Routine 08/29/20 Lunch Regular Diet [DIET] 08/29/20 16:40 Acetaminophen [Tylenol] 650 mg PO Q8HR PRN 08/30/20 05:00 CBC - COMP BLD CT W/AUTO DIFF [HEME] DAILYLAB CMP [COMPREHENSIVE METABOLIC PANEL] [CHEM] DAILYLAB 08/31/20 05:00 CBC - COMP BLD CT W/AUTO DIFF [HEME] DAILYLAB CMP [COMPREHENSIVE METABOLIC PANEL] [CHEM] DAILYLAB 09/01/20 05:00 CBC - COMP BLD CT W/AUTO DIFF [HEME] DAILYLAB CMP [COMPREHENSIVE METABOLIC PANEL] [CHEM] DAILYLAB 09/02/20 05:00 CBC - COMP BLD CT W/AUTO DIFF [HEME] DAILYLAB CMP [COMPREHENSIVE METABOLIC PANEL] [CHEM] DAILYLAB 09/03/20 05:00 CBC - COMP BLD CT W/AUTO DIFF [HEME] DAILYLAB CMP [COMPREHENSIVE METABOLIC PANEL] [CHEM] DAILYLAB Subjective - Subjective Patient Reports: Shortness of Breath Objective Vital Signs: Vital Signs - 24 hr 08/28/20 08/28/20 08/29/20 18:31 20:23 00:18 Temperature 37.1 C 36.9 C 37.1 C Heart Rate 76 Heart Rate [ 79 86 Brachial] Respiratory 16 16 20 Rate Blood Pressure 139/57 H [Left Brachial artery] Blood Pressure 114/38 L [Right Brachial artery] Blood Pressure [Right Radial artery] O2 Saturation 95 95 94 08/29/20 08/29/20 08/29/20 05:00 08:21 12:28 Temperature 36.5 C 36.6 C 36.7 C Heart Rate Heart Rate [ 84 79 81 Brachial] Respiratory 18 18 18 Rate Blood Pressure 142/52 H [Left Brachial artery] Blood Pressure 117/41 L [Right Brachial artery] Blood Pressure 124/57 L [Right Radial artery] O2 Saturation 92 92 91 L 08/29/20 08/29/20 08/29/20 12:39 12:40 16:01 Temperature 36.6 C Heart Rate Heart Rate [ 83 Brachial] Respiratory 16 Rate Blood Pressure 120/47 L [Left Brachial artery] Blood Pressure [Right Brachial artery] Blood Pressure [Right Radial artery] O2 Saturation 86 L 90 L 92 Oxygen O2 Source Oxymizer I&O (Last 24 Hrs): Intake and Output Totals x24h 08/27/20 08/28/20 08/29/20 23:59 23:59 23:59 Intake Total 1230 768 577 Output Total 1300 1525 1450 Balance -43 -436 -153 General: Alert, Oriented x3, Cooperative, No acute distress HEENT: Atraumatic, EOMI Lymphatic: no adenopathy Neuro: Alert, Non Focal, Oriented Times 3 Cardiovascular: Regular rate, Normal S1, Normal S2 Respiratory: Chest non-tender, No respiratory distress Abdomen: Normal bowel sounds, Soft Extremities: Normal pulses - Results Results: Laboratory Results WBC 9.3 x10^3/uL (4.8-10.8) 08/29/20 04:43 RBC 3.54 10^6/uL (4.70-6.10) L 08/29/20 04:43 Hgb 10.4 g/dL (14.0-18.0) L 08/29/20 04:43 Hct 32.2 % (42.0-52.0) L 08/29/20 04:43 MCV 91.0 fL (80.0-94.0) 08/29/20 04:43 MCH 29.4 pg (27.0-31.0) 08/29/20 04:43 MCHC 32.3 g/dL (32.0-36.0) 08/29/20 04:43 RDW 15.2 % (12.0-15.0) H 08/29/20 04:43 Plt Count 144 10^3/uL (130-450) 08/29/20 04:43 MPV 9.3 fL (7.4-11.4) 08/29/20 04:43 Neut # (Auto) 5.4 10^3/uL (1.5-6.6) 08/26/20 09:50 Lymph # (Auto) 1.1 10^3/uL (1.5-3.5) L 08/26/20 09:50 Floyd # (Auto) 0.9 10^3/uL (0.0-1.0) 08/26/20 09:50 Eos # (Auto) 0.2 10^3/uL (0.0-0.7) 08/26/20 09:50 Baso # (Auto) 0.1 10^3/uL (0.0-0.1) 08/26/20 09:50 Absolute Nucleated RBC 0.00 x10^3/uL 08/26/20 09:50 Nucleated RBC % 0.0 /100WBC 08/26/20 09:50 PT 14.3 secs (9.9-12.6) H 08/29/20 12:57 INR 1.3 (0.8-1.2) H 08/29/20 12:57 VBG pH 7.376 (7.31-7.41) 08/26/20 09:50 VBG pCO2 68.6 mmHg (41-51) H 08/26/20 09:50 VBG pO2 48.8 mmHg (25-47) H 08/26/20 09:50 VBG HCO3 39.3 mmol/L (23-28) H 08/26/20 09:50 VBG Total CO2 41.4 mmol/L (24-29) H 08/26/20 09:50 VBG O2 Saturation 82.5 % (60-80) H 08/26/20 09:50 VBG Base Excess 11.6 mmol/L (-2 - +2) H 08/26/20 09:50 Sodium 133 mmol/L (135-145) L 08/29/20 04:43 Potassium 3.6 mmol/L (3.5-5.0) 08/29/20 04:43 Chloride 87 mmol/L (101-111) L 08/29/20 04:43 Carbon Dioxide 37 mmol/L (21-32) H 08/29/20 04:43 Anion Gap 9.0 (6-13) 08/29/20 04:43 BUN 17 mg/dL (6-20) 08/29/20 04:43 Creatinine 1.6 mg/dL (0.6-1.2) H 08/29/20 04:43 Estimated GFR (MDRD) 43 (>89) L 08/29/20 04:43 Glucose 115 mg/dL (70-100) H 08/29/20 04:43 Lactic Acid 1.5 mmol/L (0.5-2.2) 08/26/20 10:50 Calcium 8.6 mg/dL (8.5-10.3) 08/29/20 04:43 Total Bilirubin 0.9 mg/dL (0.2-1.0) 08/29/20 04:43 AST 40 IU/L (10-42) 08/29/20 04:43 ALT 20 IU/L (10-60) 08/29/20 04:43 Alkaline Phosphatase 174 IU/L (42-121) H 08/29/20 04:43 Ammonia 48.4 umol/L (7-35) H 08/27/20 10:18 Troponin I High Sens 31.3 ng/L (2.3-19.7) H* 08/27/20 05:28 B-Natriuretic Peptide 101 pg/mL (5-100) H 08/26/20 09:50 Total Protein 6.9 g/dL (6.7-8.2) 08/29/20 04:43 Albumin 2.7 g/dL (3.2-5.5) L 08/29/20 04:43 Globulin 4.2 g/dL (2.1-4.2) 08/29/20 04:43 Albumin/Globulin Ratio 0.6 (1.0-2.2) L 08/29/20 04:43 Lipase 45 U/L (22-51) 08/26/20 09:50 Tumor Marker AFP 3.7 ng/mL (<6.1) 08/27/20 09:50 Fluid Source PLEURAL 08/27/20 13:50 Fluid Color YELLOW 08/27/20 13:50 Fluid Clarity CLOUDY 08/27/20 13:50 Fluid WBC 906 /mm^3 08/27/20 13:50 Fluid RBC 73751 /mm^3 08/27/20 13:50 Fluid Neutrophils % 8 % 08/27/20 13:50 Fluid Lymphocytes % 78 % 08/27/20 13:50 Fluid Monocytes % 3 % 08/27/20 13:50 Fluid Macrophages % 1 % 08/27/20 13:50 Fld Mesothelial Cell % 10 % 08/27/20 13:50 Nasal Adenovirus (PCR) NOT DETECTED 08/26/20 10:00 Nasal B. parapertussis DNA (PCR) NOT DETECTED 08/26/20 10:00 Nasal Coronavir 229E PCR NOT DETECTED 08/26/20 10:00 Nasal Coronavir HKU1 PCR NOT DETECTED 08/26/20 10:00 Nasal Coronavir NL63 PCR NOT DETECTED 08/26/20 10:00 Nasal Coronavir OC43 PCR NOT DETECTED 08/26/20 10:00 Nasal Enterovir/Rhinovir PCR NOT DETECTED 08/26/20 10:00 Nasal Influenza B PCR NOT DETECTED 08/26/20 10:00 Nasal Influenza A PCR NOT DETECTED 08/26/20 10:00 Nasal Parainfluen 1 PCR NOT DETECTED 08/26/20 10:00 Nasal Parainfluen 2 PCR NOT DETECTED 08/26/20 10:00 Nasal Parainfluen 3 PCR NOT DETECTED 08/26/20 10:00 Nasal Parainfluen 4 PCR NOT DETECTED 08/26/20 10:00 Nasal RSV (PCR) NOT DETECTED 08/26/20 10:00 Nasal B.pertussis DNA PCR NOT DETECTED 08/26/20 10:00 Nasal C.pneumoniae (PCR) NOT DETECTED 08/26/20 10:00 Greg Human Metapneumo PCR NOT DETECTED 08/26/20 10:00 Nasal M.pneumoniae (PCR) NOT DETECTED 08/26/20 10:00 Nasal SARS-CoV-2 (PCR) NOT DETECTED 08/26/20 10:00 ABX Reporting Has patient been on IV antibiotics over the past 48 hours?: No Current Medications - Current Medications Current Medications: Active Medications Acetaminophen (Acetaminophen 325 Mg Tablet) 650 mg PO Q8HR PRN PRN Reason: Pain 1 to 4 Last Admin: 08/29/20 16:47 Dose: 650 mg Documented by: Enoxaparin Sodium (Enoxaparin 40 Mg/0.4 Ml Syringe) 40 mg SUBQ DAILY [facility] Last Admin: 08/29/20 09:03 Dose: 40 mg Documented by: Ferrous Gluconate (Ferrous Gluconate 324 Mg Tablet) 324 mg PO DAILYWM [facility] Last Admin: 08/29/20 09:01 Dose: Not Given Documented by: Folic Acid (Folic Acid 1 Mg Tablet) 1 mg PO DAILY [facility] Last Admin: 08/29/20 09:02 Dose: 1 mg Documented by: Furosemide (Furosemide 40 Mg/4 Ml Vial) 40 mg IVP BIDDIURETIC [facility] Last Admin: 08/29/20 13:45 Dose: 40 mg Documented by: Lactobacillus Rhamnosus (Lactobacillus Rhamnosus Gg Capsule) 1 cap PO DAILY [facility] Last Admin: 08/29/20 09:02 Dose: 1 cap Documented by: Lactulose (Lactulose 10 Gm /15 Ml Udc) 10 gm PO Q6HR [facility] Last Admin: 08/29/20 16:47 Dose: 10 gm Documented by: Levothyroxine Sodium (Levothyroxine 125 Mcg Tablet) 250 mcg PO QDAC [facility] Last Admin: 08/29/20 06:09 Dose: 250 mcg Documented by: Lidocaine (Lidocaine Ointment 5% 35.44 Gm Tube) 1 applic TOP QID [facility] Last Admin: 08/29/20 16:36 Dose: 1 applic Documented by: Multivitamins (Multivitamin Tablet) 1 tab PO DAILYWM [facility] Last Admin: 08/29/20 09:01 Dose: Not Given Documented by: Ondansetron HCl (Ondansetron Odt 4 Mg Tablet) 4 mg TL Q6HR PRN PRN Reason: Nausea / Vomiting Oxycodone HCl (Oxycodone 5 Mg Tablet) 5 mg PO Q4HR PRN PRN Reason: Pain 5 to 7 Last Admin: 08/28/20 22:36 Dose: 5 mg Documented by: Pantoprazole Sodium (Pantoprazole 40 Mg Tablet) 40 mg PO DAILY [facility] Last Admin: 08/29/20 09:02 Dose: 40 mg Documented by: Rifaximin (Rifaximin 550 Mg Tablet) 550 mg PO BID [facility] Last Admin: 08/29/20 09:02 Dose: 550 mg Documented by: Sodium Chloride (Sodium Chloride Flush 0.9% 10 Ml Syringe) 10 ml IVP PRN PRN PRN Reason: NEEDED PER PROVIDER ORDERS Last Admin: 08/28/20 14:08 Dose: 10 ml Documented by: Sodium Chloride (Sodium Chloride Flush 0.9% 10 Ml Syringe) 10 ml IVP 0100,0900,1700 [facility] Last Admin: 08/29/20 16:36 Dose: 10 ml Documented by: Spironolactone (Spironolactone 25 Mg Tablet) 50 mg PO DAILY [facility] Last Admin: 08/29/20 09:02 Dose: 50 mg Documented by: Levothyroxine [Synthroid] 250 mcg PO DAILY 07/27/19 Lactulose 15 ml PO Q6HR 07/08/20 Rifaximin [Xifaxan] 550 mg PO BID 07/08/20 Spironolactone [Aldactone] 50 mg PO DAILY 07/08/20 Folic Acid 1 mg PO DAILY 07/23/20 Cholecalciferol (Vitamin D3) [Vitamin D3] 1,000 mcg PO DAILY 08/19/20 Ferrous Gluconate 324 mg PO DAILY 08/19/20 Multivitamin 1 tablet PO DAILY 08/19/20 Pantoprazole Sodium 40 mg PO DAILY 08/19/20
--- NOTE | 2020-08-29 16:53 | CONSULTATION NOTE ---
Surgery Consult - Admit Date Hospital Admission Date: 08/26/20 - Consult Date Consult Date: 08/29/20 Requesting Provider: Chase - Chief Complaint Chief Complaint: Dyspnea/Right Pleural Effusions - Home Meds/Allergies Home Medications: Patient History Medication Instructions Recorded Confirmed Levothyroxine [Synthroid] 250 mcg PO DAILY MDD 375 mcg 07/27/19 09/19/20 Sun/Sat Lactulose 15 ml PO Q6HR 07/08/20 09/19/20 Rifaximin [Xifaxan] 550 mg PO BID 07/08/20 09/19/20 Spironolactone [Aldactone] 50 mg PO DAILY 07/08/20 09/19/20 Cholecalciferol (Vitamin D3) 2,000 mcg PO DAILY 08/19/20 09/19/20 [Vitamin D3] Ferrous Gluconate 65 mg PO DAILY 08/19/20 09/19/20 Multivitamin 1 tablet PO DAILY 08/19/20 09/19/20 Pantoprazole Sodium 40 mg PO DAILY PRN 08/19/20 09/19/20 B-Complex with Vitamin C [Super B 1 tab PO DAILY 09/19/20 09/19/20 Complex-Vitamin C] Loratadine [Claritin] 10 mg PO DAILY PRN 09/19/20 09/19/20 Allergies/Adverse Reactions: Allergies Allergy/AdvReac Type Severity Reaction Status Date / Time No Known Drug Allergies Allergy Verified 08/23/20 05:03 - Vital Signs Vital Signs: Last Vital Signs Temp 36.6 C 08/29/20 16:01 Pulse 83 08/29/20 16:01 Resp 16 08/29/20 16:01 BP 120/47 L 08/29/20 16:01 Pulse Ox 92 08/29/20 16:01 Intake & Output: Intake & Output 08/26/20 08/27/20 08/28/20 08/29/20 23:59 23:59 23:59 23:59 Intake Total 855 1230 768 577 Output Total 200 1300 1525 1450 Balance 655 -70 -757 -873 - Lab Results Result Diagrams: 08/30/20 04:46 08/30/20 04:46 - Consultation Note Consultation Note: Subjective 59-year-old male presenting for dyspnea and right pleural effusion. Longstanding history of cirrhosis. Status post TIPS procedure. Follows with hepatology. Underwent ultrasound-guided thoracentesis. Persistent dyspnea with request for consideration for right tube thoracostomy. Objective General Appearance: positive: No acute distress Eyes Bilateral: positive: Normal inspection ENT: positive: ENT inspection nml Neck: positive: Nml inspection Respiratory: positive: Chest non-tender, No respiratory distress, Decreased breath sounds on the right. Cardiovascular: positive: Regular rate & rhythm Abdomen: positive: No distention, Other. negative: Guarding, Rebound Extremities: positive: Non-tender, Full ROM, Nml appearance Neurologic/Psychiatric: positive: Oriented x3, CN's nml (2-12) See imaging results below Impression/Plan 65-year-old male with dyspnea found to have right pleural effusion status post ultrasound-guided thoracentesis. 1.5 L removed. History of cirrhosis status post TIPS procedure. Followed by hepatology. Although request is made of right tube thoracostomy, follow-up x-ray only shows trace/small right pleural effusion post procedure. The patient has significant atelectasis on CT imaging versus consolidative process. If this is indeed a parapneumonic pleural effusion patient would be best served with referral to a center that has both hematology, thoracic surgery amongst others. This is an exceedingly complicated patient with potential for significant decompensation and given his current level of respiratory stability I would recommend transfer for any further procedural care. Moreover he needs to be optimized from a fluid management and renal standpoint which also could be best addressed through follow-up with a facility that also has in-house hepatology as well. Please note that voice recognition software was used to transcribe this note and inadvertent errors might persist in spite of review and editing. I am obliged to you for your attention. I am thankful to you for allowing me to participate with you in this care of this patient. Plain chest x-ray August 29 impression:. 1. No change in right lower lobe pneumonia with small parapneumonic effusion 2. Follow-up PA and lateral chest x-rays or chest CT to assure resolution and to exclude underlying neoplasm. Please note that there was only a small right pleural effusion noted on this read post thoracentesis. This was performed on . CT chest: 1. Persistent appearance of moderate right effusion with superimposed consolidative opacity when compared to 08/19/2020. Consolidative opacity may represent persistent atelectasis. Other etiologies such as pneumonia or potentially underlying mass lesion of the naris plastic potential cannot be excluded. Area of lower attenuation are noted within the consolidation of slightly more prominent suggestive of fluid 2. Upper abdominal ascites decreased compared to prior exam
[2020-08-29] MEDS ORDERED: IOVERSOL 320 100 ML VIAL IVP ONE ×2 (17:14→21:07)
--- NOTE | 2020-08-29 20:41 | CT Report ---
PROCEDURE: CHEST W INDICATIONS: SOB CONTRAST: IV CONTRAST: Optiray 320 ml: 100 PO CONTRAST: *NO PO CONTRAST TECHNIQUE: After the administration of intravenous contrast, 5 mm thick sections acquired from the pulmonary api evelio to the posterior costophrenic angles. 7 mm thick coronal MIP reformats were acquired. For radia tion dose reduction, the following was used: automated exposure control, adjustment of mA and/or kV according to patient size. COMPARISON: Chest x-ray 08/29/2020, CT abdomen pelvis 04/28/2019 FINDINGS: Image quality: Excellent. Lungs and pleura: There is a mild to moderate effusion on the right with superimposed consolidation. Trace effusion is noted on the left. No visualized endobronchial lesion. This corresponds with appear ance on recent chest x-ray. There are areas of low attenuation within the consolidation. Mediastinum: Heart size is normal. No pericardial effusion. No mediastinal or hilar adenopathy by size criteria. Thoracic aorta and central pulmonary arteries are normal in size. Esophagus is brandie l in caliber. No hiatal hernia. Bones and chest wall: No suspicious bony lesions. No vertebral body compression fractures. No axil bebe or supraclavicular adenopathy by size criteria. The thyroid is normal in size and there are no incidental findings.. Abdomen: Mild perihepatic and perisplenic fluid are present, decreased. There is appearance of a TIPS as well as hepatic steatosis. IMPRESSION: 1. Persistent appearance of moderate right effusion with superimposed consolidative opacity when comp ared to 08/19/2020. Consolidative opacity may represent persistent atelectasis. Other etiologies such as pneumonia or potentially underlying mass lesion of neoplastic potential cannot be excluded. Areas of low-attenuation are noted within the consolidation slightly more prominent suggestive of fluid. 2. Upper abdominal ascites, decreased compared to prior exam. CLINICAL RECOMMENDATION STATEMENTS: In patients <35 years with an ITN detected on CT, MRI, or extrathyroidal ultrasound, the Committee re commends further evaluation with dedicated thyroid ultrasound if the nodule is ?1 cm and has no suspi cious imaging features, and if the patient has normal life expectancy. In patients ?35 years with an ITN detected on CT, MRI, or extrathyroidal ultrasound, the Committee re commends further evaluation with dedicated thyroid ultrasound if the nodule is ?1.5 cm and has no sonu picious imaging features, and if the patient has normal life expectancy. (ACR, 2014) Reviewed by: Sanna Arciniega MD on 08/29/2020 8:40 PM PDT Approved by: Sanna Arciniega MD on 08/29/2020 8:40 PM PDT Station ID: [id number]
[2020-08-30] MEDS: ACETAMINOPHEN 325 MG TABLET PO PRN (04:54)
[2020-08-30] MEDS: oxyCODONE 5 MG TABLET PO PRN (04:54)
[2020-08-30 05:43] LABS: BASOPHILS # (AUTO) 0.1 10^3/uL (0.0-0.1); BASOPHILS % (AUTO) 1.2 %; EOSINOPHILS # (AUTO) 0.3 10^3/uL (0.0-0.7); EOSINOPHILS % (AUTO) 4.4 %; HCT - HEMATOCRIT 31.6 % (42.0-52.0); HGB - HEMOGLOBIN 10.1 g/dL (14.0-18.0); LYMPHOCYTES # (AUTO) 1.1 10^3/uL (1.5-3.5); LYMPHOCYTES % (AUTO) 14.6 %; MEAN CORPUSCULAR HEMOGLOBIN 29.4 pg (27.0-31.0); MEAN CORPUSCULAR VOLUME 91.9 fL (80.0-94.0); MEAN PLATELET VOLUME 9.1 fL (7.4-11.4); MONOCYTES # (AUTO) 1.2 10^3/uL (0.0-1.0); MONOCYTES % (AUTO) 15.6 %; NEUTROPHILS % (AUTO) 63.7 %; PLT - PLATELET COUNT 130 10^3/uL (130-450); RED BLOOD COUNT 3.44 10^6/uL (4.70-6.10); RED CELL DISTRIBUTION WIDTH 15.6 % (12.0-15.0); WHITE BLOOD COUNT 7.8 x10^3/uL (4.8-10.8)
[2020-08-30 05:55] LABS: ALBUMIN 2.7 g/dL (3.2-5.5); ALBUMIN/GLOBULIN RATIO 0.7 (1.0-2.2); CALCIUM 8.7 mg/dL (8.5-10.3); CREATININE 1.6 mg/dL (0.6-1.2); TOTAL PROTEIN 6.7 g/dL (6.7-8.2)
[2020-08-30] MEDS: FUROSEMIDE 40 MG/4 ML VIAL IVP SCH ×2 (06:08→14:01)
[2020-08-30] MEDS: LEVOTHYROXINE 125 MCG TABLET PO SCH (06:08)
[2020-08-30] MEDS: LACTULOSE 10 GM /15 ML UDC PO SCH ×2 (06:08→12:00)
[2020-08-30] MEDS: SODIUM CHLORIDE FLUSH 0.9% 10 ML SYRINGE IVP PRN (06:09)
[2020-08-30] MEDS: LACTOBACILLUS RHAMNOSUS GG CAPSULE PO SCH (08:25)
[2020-08-30] MEDS: SODIUM CHLORIDE FLUSH 0.9% 10 ML SYRINGE IVP SCH (08:25)
[2020-08-30] MEDS: FOLIC ACID 1 MG TABLET PO SCH (08:25)
[2020-08-30] MEDS: MULTIVITAMIN TABLET PO SCH (08:25)
[2020-08-30] MEDS: PANTOPRAZOLE 40 MG TABLET PO SCH (08:25)
[2020-08-30] MEDS: rifAXIMin 550 MG TABLET PO SCH (08:25)
[2020-08-30] MEDS: SPIRONOLACTONE 25 MG TABLET PO SCH (08:25)
[2020-08-30] MEDS: FERROUS GLUCONATE 324 MG TABLET PO SCH (08:25)
[2020-08-30] MEDS: ENOXAPARIN 40 MG/0.4 ML SYRINGE SUBQ SCH (08:25)
[2020-08-30] MEDS: LIDOCAINE OINTMENT 5% 35.44 GM TUBE TOP SCH ×2 (08:26→12:00)
[2020-08-30] MEDS ORDERED: THIAMINE 100 MG TABLET PO SCH (11:00)
[2020-08-30 12:26] VITALS: BP 140/61
--- NOTE | 2020-08-30 12:49 | Discharge Plan ---
Discharge Plan Problem Reviewed?: Yes Disposition: Home, Self Care Condition: Poor Prescriptions: Furosemide [Lasix] 40 mg PO BID #60 tablet Diet: Regular Activity Restrictions: Activity as Tolerated Shower Restrictions: No (fall precaution) Instruction Topics: Furosemide tablets, Effusion Pleural, Oxygen Home Use Health Concerns: pleural effusion Plan of Treatment: You had thoracentesis done at hospital to remove your pleural effusion. Now your shortness of breath is resolved. Oxygen desaturation study show you require 2 liter of O2 by nasal cannula at the rest, and 3 liter of O2 at exertion. Your home Lasix dosage is increased to 40mg twice per day. You may followup with your PCP in one week, have blood work and image study to monitor your pulmonary status as well. you may followup with director [facility] and email designer as out-pt. you also had palliative care consult in hospital, you may followup with alliative care as well. Care Goals: stabilization and improvement of your medical conditions Assessment: discussed the care plan with you, answered your question, you understood. Additional Instructions or Follow Up instructions: You may followup with your PCP in one week, have blood work and image study to monitor your pulmonary status as well. you may followup with director [facility] and email designer as out-pt. Should your symptoms return or worsen, or feel more shortness of breath, you may present ER or call 911 for help. No Smoking: If you smoke, Please STOP! Call for help. Follow-up with: Kaz Newman MD [Primary Care Provider] -
--- NOTE | 2020-08-30 13:23 | DISCHARGE SUMMARY ---
Discharge Summary Admit Date: 08/26/20 Discharge Date: 08/30/20 Discharging Provider: Layton Stone Primary Care Provider: Dr. Kaz Newman Condition at Discharge: Poor Discharge Disposition: 01 Home, Self Care Discharge Facility Name: home - DIAGNOSES Discharge Diagnoses with Status of Each Condition: (1) Respiratory failure with hypoxia stable and improved. Patient walk 200 feet with RT on 3 liter of O2. Patient did not show respiratory distress, shortness of breath, chest pain, palpitation When patient walk with RT. It is suspected pt's recurrent pleural effusion lead to pt's hypoxia. RT did O2 Desaturation study. Patient had 86% oxygen saturation on room air at rest. Patient had 89% oxygen saturation on 2 L oxygen at rest. Patient had a 91% oxygen saturation on 3 L of oxygen at exertion. I am ordering 2 LPM of oxygen On the rest, 3 LPM of oxygen On the exertion. (2) Recurrent Pleural effusion stable. Patient was admitted for Recurrent pleural effusion and shortness of breathing. Patient had thoracentesis in the hospital which removed 1.5 L of pleural effusion. Pleural effusion was sent for cytology study which show negative Malignant cell, study for Distinguish of transudative and exudative which is pending, grain and culture study which is negative organism seen. Doppler of abdomen study suggest Tips appears patent. pt was consulted with general surgeon. pt has recurrent pleural effusion. It is suspected to be caused by Hepatic failure and cirrhosis. pt decline pleurx catheter and chest tube procedure in the hospital. pt may followup with his PCP in one week, have blood work and CXR or CT of chest to monitor his lung and Pleural effusion. pt may followup with finance insurance manager and welcome hostess as out-pt. Fluid restriction follow-up with patient's director medical writing recommendation. pt's home lasix dosage is increased to 40mg bid. 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 Status post TIPS, pt may Followup with Dr. Castaneda, pt's finance insurance manager, as out-pt. Doppler of abdomen study suggest Tips appears patent. (5) Hypothyroidism stable, TSH is normal arrange in 08/20/20. (6) Elevated troponin pt denies chest pain, Mild elevation in troponin and became flat No evidence of chest pain. Likely demand. (7) GERD (gastroesophageal reflux disease) stable (8) CKD (chronic kidney disease) stable, creatinine is 1.6 (9) Anemia in chronic kidney disease HGB is stable - HPI History of Present Illness: refer from Dr. 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 He was recently discharged from this hospital and found to have bilateral pleural effusions and was given treatment with diuresis and thoracentesis removing approximately 2.5 L of the right lung and he was discharged home on 2 L of oxygen having no previous oxygen requirements. Please see discharge summary for full details. Patient states that after discharge she never really quite got back to normal continue to have shortness of breath and in fact found himself having to turn up the oxygen more more until he was finally up to 4 L of oxygen and continuing not to feel good so he came to the emergency room for further evaluation. In the ER chest x-ray confirmed pleural effusions and lab work showed no evidence of leukocytosis and there is no consolidation on imaging. He was not having any fevers, nausea, vomiting, chills or other systemic symptoms suggest infection. He denies any chest pain. Hospital medicine admission was requested for further work-up and treatment and he was given a dose of vancomycin and Zosyn in the ER due to concerns by the ED physician for possible hospital-acquired pneumonia. - HOSPITAL COURSE Hospital Course: Patient was admitted for shortness of breathing and Recurrent pleural effusion. Patient had thoracentesis done in the hospital which removed 1.5 L of pleural fluid. Pleural fluid was sent for study. Cytology study show negative malignant cells. study for Distinguish of transudative and exudative which was requested by pt's Instructor Kindergarten, is pending. General surgeon was consulted, patient declined Pleurx catheter or chest tube. Patient was given intravenous diuretics Lasix, Fluid restriction. After treatment, patient's shortness of breathing is significantly improved and resolved. - ALLERGIES Allergies/Adverse Reactions: Allergies Allergy/AdvReac Type Severity Reaction Status Date / Time No Known Drug Allergies Allergy Verified 08/23/20 05:03 - MEDICATIONS Home Medications: Ambulatory Orders Medication Instructions Recorded Confirmed Levothyroxine [Synthroid] 250 mcg PO DAILY 07/27/19 08/26/20 Lactulose 15 ml PO Q6HR 07/08/20 08/26/20 Rifaximin [Xifaxan] 550 mg PO BID 07/08/20 08/26/20 Spironolactone [Aldactone] 50 mg PO DAILY 07/08/20 08/26/20 Folic Acid 1 mg PO DAILY 07/23/20 08/26/20 Cholecalciferol (Vitamin D3) 1,000 mcg PO DAILY 08/19/20 08/26/20 [Vitamin D3] Ferrous Gluconate 324 mg PO DAILY 08/19/20 08/26/20 Multivitamin 1 tablet PO DAILY 08/19/20 08/26/20 Pantoprazole Sodium 40 mg PO DAILY 08/19/20 08/26/20 Lactobacillus Rhamnosus GG 1 cap PO DAILY #10 cap 08/23/20 08/26/20 [Culturelle] cefUROXime axetiL [Ceftin] 500 mg PO Q12H 5 Days #20 tablet 08/23/20 08/26/20 Furosemide [Lasix] 40 mg PO BID #60 tablet 08/30/20 - PHYSICAL EXAM AT DISCHARGE General Appearance: positive: No acute distress, Alert. negative: Lethargic Eyes Bilateral: positive: Normal inspection, PERRL, No lid inflammation ENT: positive: ENT inspection nml, No signs of dehydration. negative: Purulent nasal drainage Neck: positive: Nml inspection, Trachea midline. negative: Thyromegaly, Tracheal deviation Respiratory: positive: Chest non-tender, No respiratory distress. negative: Wheezes Cardiovascular: positive: Regular rate & rhythm, No murmur. negative: Tachycardia, Bradycardia, Systolic murmur, Diastolic murmur Peripheral Pulses: positive: 2+ Abdomen: positive: Non-tender, Nml bowel sounds, No distention. negative: Tenderness Back: positive: Nml inspection Skin: positive: Color nml, Warm, Dry. negative: Cyanosis Extremities: positive: Non-tender, Full ROM, Nml appearance. negative: Calf tenderness Neurologic/Psychiatric: positive: Oriented x3, Motor nml, Sensation nml. negative: Weakness, Sensory loss, Facial droop, Slurred/abnml speech, Depressed mood/affect - LABS Result Diagrams: 08/30/20 04:46 08/30/20 04:46 - FOLLOW UP Follow Up: You had thoracentesis done at hospital to remove your pleural effusion. Now your shortness of breath is resolved. Oxygen desaturation study show you require 2 liter of O2 by nasal cannula at the rest, and 3 liter of O2 at exertion. Your home Lasix dosage is increased to 40mg twice per day. You may followup with your PCP in one week, have blood work and image study to monitor your pulmonary status as well. you may followup with finance insurance manager and welcome hostess as out-pt. you also had palliative care consult in hospital, you may followup with palliative care as well. You may followup with your PCP in one week, have blood work and image study to monitor your pulmonary status as well. you may followup with finance insurance manager and welcome hostess as out-pt. Should your symptoms return or worsen, or feel more shortness of breath, you may present ER or call 911 for help. - TIME SPENT Time Spent in Discharge (Minutes): 30
== END 2020-08-30 14:52 | disposition home or self-care (01) | DRG 189 ==
LOC: ED 09:17 → MS2 11:13
PROVIDERS: ADMIT Family Medicine Sports Medicine; ATTEND Nurse Practitioner Gerontology
PROC: 0W993ZZ Drainage of Right Pleural Cavity, Percutaneous Approach (ICD-10-PCS; principal; 2020-08-27)
DX: J96.91 Respiratory failure, unspecified with hypoxia (principal); J18.9 Pneumonia, unspecified organism; R73.9 Hyperglycemia, unspecified; J90 Pleural effusion, not elsewhere classified; K74.60 Unspecified cirrhosis of liver; I11.0 Hypertensive heart disease with heart failure; I13.0 Hypertensive heart and chronic kidney disease with heart failure and stage 1 through stage 4 chronic kidney disease, or unspecified chronic kidney disease; Z99.81 Dependence on supplemental oxygen; Z87.891 Personal history of nicotine dependence; Z20.822 Contact with and (suspected) exposure to COVID-19; K70.31 Alcoholic cirrhosis of liver with ascites; K70.40 Alcoholic hepatic failure without coma; E03.9 Hypothyroidism, unspecified; R77.8 Other specified abnormalities of plasma proteins; K21.9 Gastro-esophageal reflux disease without esophagitis; N18.9 Chronic kidney disease, unspecified; I50.9 Heart failure, unspecified; D63.1 Anemia in chronic kidney disease; I25.10 Atherosclerotic heart disease of native coronary artery without angina pectoris; F10.11 Alcohol abuse, in remission; Z98.890 Other specified postprocedural states; Z79.899 Other long term (current) drug therapy; Z51.5 Encounter for palliative care; M54.9 Dorsalgia, unspecified; G89.29 Other chronic pain; F32.9 Major depressive disorder, single episode, unspecified; F41.9 Anxiety disorder, unspecified; R53.83 Other fatigue; M54.2 Cervicalgia; G47.00 Insomnia, unspecified
CPT/HCPCS: 32555; 36415; 71045; 71260; 76705; 80053; 81599; 82105; 82140; 82803; 83605; 83690; 83880; 84484; 85025; 85027; 85610; 87040; 87070; 87205; 87631; 89051; 93005; 93976; 94640; 94761; 96374; 99223; 99284; 99285; A9270; J1650; J8499; P9047; Q9967; 0202U

== ENCOUNTER 2020-09-19 13:30 | Outpatient (CLI) | payer MEDICARE ==
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
== END 2020-09-19 13:31 | disposition home or self-care (01) ==
LOC: PC 13:30
PROVIDERS: ATTEND Nurse Practitioner Adult Health
DX: Z51.5 Encounter for palliative care (principal); J90 Pleural effusion, not elsewhere classified; R60.1 Generalized edema; K70.30 Alcoholic cirrhosis of liver without ascites; K72.90 Hepatic failure, unspecified without coma; G25.3 Myoclonus; M54.9 Dorsalgia, unspecified; G89.29 Other chronic pain; F10.11 Alcohol abuse, in remission
CPT/HCPCS: 99215

== ENCOUNTER 2020-09-19 14:43 | Outpatient (CLI) | payer MEDICARE ==
[2020-09-19 15:46] LABS: BASOPHILS # (AUTO) 0.1 10^3/uL (0.0-0.1); EOSINOPHILS # (AUTO) 0.6 10^3/uL (0.0-0.7); EOSINOPHILS % (AUTO) 6.7 %; HCT - HEMATOCRIT 35.5 % (42.0-52.0); HGB - HEMOGLOBIN 11.5 g/dL (14.0-18.0); LYMPHOCYTES # (AUTO) 1.7 10^3/uL (1.5-3.5); LYMPHOCYTES % (AUTO) 20.9 %; MEAN CORPUSCULAR HEMOGLOBIN 29.9 pg (27.0-31.0); MEAN CORPUSCULAR HGB CONC 32.4 g/dL (32.0-36.0); MEAN CORPUSCULAR VOLUME 92.2 fL (80.0-94.0); MEAN PLATELET VOLUME 8.8 fL (7.4-11.4); MONOCYTES # (AUTO) 1.5 10^3/uL (0.0-1.0); MONOCYTES % (AUTO) 18.8 %; NEUTROPHILS # (AUTO) 4.3 10^3/uL (1.5-6.6); NEUTROPHILS % (AUTO) 52.4 %; PLT - PLATELET COUNT 104 10^3/uL (130-450); RED BLOOD COUNT 3.85 10^6/uL (4.70-6.10); RED CELL DISTRIBUTION WIDTH 17.1 % (12.0-15.0); WHITE BLOOD COUNT 8.2 x10^3/uL (4.8-10.8)
--- NOTE | 2020-09-19 15:46 | XRAY Report ---
PROCEDURE: Chest 2 View X-Ray INDICATIONS: R PLEURAL EFFUSION,SHORTNESS OF BREATH,LABS, TECHNIQUE: 2 views of the chest. COMPARISON: Chest radiographs and chest CT dated 08/29/2020 FINDINGS: Surgical changes and devices: Embolization coils are seen in the upper abdomen. TIPS stent is partial ly visualized. Lungs and pleura: Moderate right-sided pleural effusion is seen that does not appear significantly ch anged in size when compared to the radiographs from 08/29/2020 given differences in positioning. There is atelectasis of the adjacent base. The left lung is clear. Mediastinum: Mediastinal contours are normal. Heart size is normal. Bones and chest wall: No suspicious bony abnormalities. Soft tissues appear unremarkable. Flowing anterior osteophyte formation is seen in the thoracic spine. IMPRESSION: Moderate right pleural effusion with atelectasis of the adjacent lung base, not signific antly changed in size when compared to the most recent prior exam. Reviewed by: Luis E Snow MD on 09/19/2020 2:45 PM AKDT Approved by: Luis E Snow MD on 09/19/2020 2:45 PM AKDT Station ID: [id number]
[2020-09-19 16:04] LABS: ALBUMIN 3.2 g/dL (3.2-5.5); ALBUMIN/GLOBULIN RATIO 0.7 (1.0-2.2); BILIRUBIN,DIRECT 0.3 mg/dL (0.1-0.5); BILIRUBIN,TOTAL 1.4 mg/dL (0.2-1.0); CALCIUM 9.2 mg/dL (8.5-10.3); CREATININE 1.5 mg/dL (0.6-1.2); POTASSIUM 4.4 mmol/L (3.5-5.0)
== END 2020-09-19 14:44 | disposition home or self-care (01) ==
LOC: LAB 14:43
PROVIDERS: ATTEND Nurse Practitioner Adult Health
DX: D64.9 Anemia, unspecified (principal); J90 Pleural effusion, not elsewhere classified; J98.11 Atelectasis
CPT/HCPCS: 36415; 80053; 80076; 82248; 85025

== ENCOUNTER 2020-09-30 12:52 | Outpatient (CLI) | payer MEDICARE ==
[2020-10-02 23:40] VITALS: BP 110/50
--- NOTE | 2020-10-02 23:40 | SLEEP CARE CONSULTATION ---
Information from patient questionnaire entered by Sheree Aparicio. I have reviewed and concur with the information entered by Sheree Aparicio. This document represents the service I personally performed and the decisions made by me, Yuli Avelar MD, [facility]. History of Present Illness Service Date and Time: 09/30/2020 1252 Reason for Visit: New patient Chief Complaint: reports: Excessive daytime sleepiness, Fatigue, Other (can't fall asleep) Date of Onset: years Usual bedtime: 2200 Time it takes to fall asleep: hours Snores at night: Yes Observed to quit breathing while asleep: No Sleeps alone due to snoring: No Reasons for waking at night: reports: Bathroom Toss, Turn, or Twitch while sleeping: Yes Recalls having dreams: Yes Usually gets out of bed at: depends Feels refreshed in the morning: No Morning headache: No Sleepy or fatigued during the day: Yes Ever fallen asleep while driving: No Takes day naps: Yes Prior sleep studies: No Additional HPI information: I had the pleasure of seeing Mr. Castro along with his today regarding the possibility of him having obstructive sleep apnea-hypopnea.. As you know, he is a 65 year old gentleman who was found to be hypoxic due to pleural effusion. He has been on home oxygen continuously for a month now. He thinks he does not need it anymore. The patient tells me that he normally goes to bed around 10 pm, and it takes him approximately 4 5 hours to fall asleep. He says that his legs bother him. He takes oxycodone at night. He has not been told that he snores loudly or irregularly at night. He has never been observed to stop breathing in his sleep. His sleeps in the same bed. He wakes anywhere between 8 am and noon. He says 11 am is the average. He also complains of restless leg syndrome which bothers him mostly in the evenings. He took gabap entin in the past but it made him too sleepy. He was anemic at one time and required blood transfusion. 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 Patient is Single and lives in [place]. Have you smoked in the past 12 months: Yes Cigarettes per day (20/pack): 10 (smoked off/on) Quit date: 2005 Alcohol use: No Caffeine use: Yes Caffeine amount and frequency: 2 cups/day Family History Family history of sleep disordered breathing: No Allergies and Home Medications Drug allergies reviewed: Yes Home medication list reviewed: Yes Review of Systems Review of systems same as previous: Yes Cardiovascular: reports: high blood pressure, leg or foot swelling Respiratory: reports: shortness of breath Gastrointestinal: reports: nausea Urinary: reports: frequency Neurological: denies: headaches, seizure, head trauma, disorientation, speech dysfunction, gait or balance problems, fainting or unconsciousness, other Psychiatric: denies: Attention Deficit Hyperactivity, anxiety, depression, mood disorder, claustrophobia, other Ear/Nose/Throat: reports: nasal congestion, sinus problems Endocrine: reports: thyroid disease, too hot or cold, excessive thirst Musculoskeletal: reports: joint pain, neck pain, back pain, muscle pain or cramping Immunologic: reports: sneezing Physical Exam Vital signs obtained and entered by: Dr. Avelar Blood Pressure: 110/50 Heart Rate: 79 O2 Saturation: 91 (on room air) Height: 5 ft 11 in Weight: 272 lb Body Mass Index: 37.9 BMI Classification: Obese Neck circumference: 18 Mood/affect: normal HEENT: No craniofacial malformation Nostrils: patent to airflow Turbinates: normal Septum: midline Mouth and throat: narrow oropharynx Soft palate: long Hard palate: normal Uvula: normal Uvula visualization: 50% Mallampati Class II Tongue: normal in size Tonsils: small Chin and jaw: normal size and position Neck: normal w/o lymphadenopathy or thyromegaly Heart: regular rate and rhythm, murmur Lungs: crackles Abdomen: soft Extremities: 1+ edema Neurologic: intact Impression and Plan IMPRESSION: 1. Obstructive Sleep Apnea-Hypopnea Syndrome, as suggested by history of nocturnal hypoxemia, unrefreshed sleep, and daytime hypersomnolence. Narrow oropharynx and obesity are common predisposing factors for obstructive sleep apnea-hypopnea syndrome. I recommend proceeding to polysomnography to confirm the diagnosis and to assess severity. I informed the patient of what the sleep studies involve and after some discussion, he agreed to proceed. 2. 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 Because he gets up on the average around 11 a.m., he should not attempt to go to bed before 3 am. I he wants to go to bed earlier, then he must first wake up earlier. 3. Restless leg syndrome, being treated with hydrocodone. He tried gabapentin but it made him sleepy. He has never tried a dopamine agonist. Plan: 1. Schedule polysomnography and return in 1 to 2 weeks after the study to discuss result and initiate therapy. 2. Wake up earlier and go to bed 8 hours before wakeup time. 3. Avoid alcohol, sedative and muscle relaxant around bedtime. 4. Attempt to lose weight. Counseling Topics: Weight control Visit Type: In Office Other Participants: Spouse/Significant Other Time Spent with Patient (minutes): 15 Provider Statement: I spent 100% of the Face to Face Visit with the patient with greater than 50% spent counseling the patient and coordination of care.
== END 2020-09-30 12:53 | disposition home or self-care (01) ==
LOC: SC 12:52
PROVIDERS: ATTEND Internal Medicine Pulmonary Disease
DX: G47.10 Hypersomnia, unspecified (principal); G47.8 Other sleep disorders; R09.02 Hypoxemia; E66.9 Obesity, unspecified; Z68.37 Body mass index [BMI] 37.0-37.9, adult
CPT/HCPCS: 99202; G0463; 99212

== ENCOUNTER 2020-10-10 12:02 | Outpatient (CLI) | payer MEDICARE ==
[2020-10-10 12:21] LABS: INR 1.3 (0.8-1.2); PT - PROTHROMBIN TIME 14.2 secs (9.9-12.6)
[2020-10-10 12:53] LABS: ALBUMIN 3.1 g/dL (3.2-5.5); ALBUMIN/GLOBULIN RATIO 0.7 (1.0-2.2); BILIRUBIN,TOTAL 1.3 mg/dL (0.2-1.0); CALCIUM 9.5 mg/dL (8.5-10.3); CREATININE 1.7 mg/dL (0.6-1.2); POTASSIUM 4.6 mmol/L (3.5-5.0); TOTAL PROTEIN 7.5 g/dL (6.7-8.2)
--- NOTE | 2020-10-10 16:57 | Ultrasound Report ---
PROCEDURE: Chest INDICATIONS: RT PLEURAL EFFUSION TECHNIQUE: Real-time scanning was performed, to evaluate for possible thoracentesis. COMPARISON: Chest CT dated 08/29/2020. FINDINGS: The right pleural effusion has decreased. No thoracentesis was performed. IMPRESSION: Decrease in right pleural effusion, mild. No thoracentesis performed. Reviewed by: Curtis Knox MD on 10/10/2020 4:56 PM PDT Approved by: Curtis Knox MD on 10/10/2020 4:56 PM PDT Station ID: [id number]
== END 2020-10-10 12:03 | disposition home or self-care (01) ==
LOC: LAB 12:02 → DI 12:03
PROVIDERS: ATTEND Internal Medicine
DX: J90 Pleural effusion, not elsewhere classified (principal); N17.9 Acute kidney failure, unspecified
CPT/HCPCS: 36415; 80053; 85610

== ENCOUNTER 2020-10-29 13:54 | Emergency (ER) | payer MEDICARE ==
[2020-10-29 14:14] VITALS: BP 138/74
[2020-10-29 14:39] LABS: BASOPHILS # (AUTO) 0.1 10^3/uL (0.0-0.1); EOSINOPHILS # (AUTO) 0.3 10^3/uL (0.0-0.7); EOSINOPHILS % (AUTO) 3.1 %; HCT - HEMATOCRIT 34.6 % (42.0-52.0); HGB - HEMOGLOBIN 11.7 g/dL (14.0-18.0); LYMPHOCYTES # (AUTO) 1.7 10^3/uL (1.5-3.5); MEAN CORPUSCULAR HEMOGLOBIN 30.8 pg (27.0-31.0); MEAN CORPUSCULAR HGB CONC 33.8 g/dL (32.0-36.0); MEAN CORPUSCULAR VOLUME 91.1 fL (80.0-94.0); MONOCYTES # (AUTO) 1.5 10^3/uL (0.0-1.0); MONOCYTES % (AUTO) 18.6 %; NEUTROPHILS # (AUTO) 4.5 10^3/uL (1.5-6.6); PLT - PLATELET COUNT 113 10^3/uL (130-450); RED CELL DISTRIBUTION WIDTH 16.3 % (12.0-15.0)
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
--- NOTE | 2020-10-29 14:41 | XRAY Report ---
PROCEDURE: Chest 1 View X-Ray INDICATIONS: Chest Pain TECHNIQUE: One view of the chest was acquired. COMPARISON: 09/19/2020 FINDINGS: Surgical changes and devices: None. Lungs and pleura: No pleural effusions or pneumothorax. Lungs are clear. Mediastinum: Mediastinal contours appear normal. Heart size is normal. Bones and chest wall: No suspicious bony lesions. Overlying soft tissues appear unremarkable. IMPRESSION: No acute cardiopulmonary pathology. Reviewed by: Vern Corrales MD on 10/29/2020 2:40 PM PDT Approved by: Vern Corrales MD on 10/29/2020 2:40 PM PDT Station ID: [id number]
[2020-10-29 14:55] LABS: ALBUMIN 3.2 g/dL (3.2-5.5); ALBUMIN/GLOBULIN RATIO 0.7 (1.0-2.2); BILIRUBIN,TOTAL 1.4 mg/dL (0.2-1.0); CALCIUM 9.5 mg/dL (8.5-10.3); CREATININE 1.7 mg/dL (0.6-1.2); POTASSIUM 4.6 mmol/L (3.5-5.0); TOTAL PROTEIN 7.6 g/dL (6.7-8.2)
[2020-10-29] MEDS ORDERED: IOPAMIDOL-300 50 ML VIAL ONE (14:55)
--- NOTE | 2020-10-29 16:04 | CT Report ---
PROCEDURE: ANGIO CHEST W/WO INDICATIONS: Pleuritic chest pain CONTRAST: IV CONTRAST: Isovue 300 ml: 80 PO CONTRAST: *NO PO CONTRAST TECHNIQUE: After the administration of intravenous contrast, images were acquired from the pulmonary apices to t he posterior costophrenic angles. 3-dimensional maximum intensity projection (MIP) coronal and sagit ok reformats were then acquired through the thorax. For radiation dose reduction, the following was used: automated exposure control, adjustment of mA and/or kV according to patient size. COMPARISON: 08/19/2020 FINDINGS: Image quality: Excellent. Pulmonary arteries: No pulmonary artery filling defect identified. Lungs and pleura: Small right pleural effusion. Overlying passive atelectasis in the right lower lobe . Minimal posterior dependent atelectasis in the left lower lobe. No focal consolidation. No pneumoth orax. Mediastinum: Normal heart size. No pericardial effusion. Coronary atherosclerosis. Normal caliber tho racic aorta. Bones and chest wall: No chest wall mass or lymphadenopathy demonstrated. Abdomen: Limited evaluation of the upper abdomen in the early arterial phase of contrast. Cirrhosis w ith splenomegaly and TIPS stent in place (patency not assessed). IMPRESSION: No evidence of pulmonary embolism. Small right pleural effusion with adjacent atelectasis and mild airspace disease. Cirrhosis with TIPS stent (patency is not assessed). Reviewed by: Andrea Gryason MD on 10/29/2020 4:03 PM PDT Approved by: Andrea Grayson MD on 10/29/2020 4:03 PM PDT Station ID: [id number]
[2020-10-29] MEDS ORDERED: IOPAMIDOL-300 50 ML VIAL IVP ONE (16:36)
== END 2020-10-29 16:38 | disposition home or self-care (01) ==
LOC: ED 13:54
DX: J90 Pleural effusion, not elsewhere classified (principal); R07.1 Chest pain on breathing; R07.81 Pleurodynia; R79.89 Other specified abnormal findings of blood chemistry; I49.3 Ventricular premature depolarization; K70.30 Alcoholic cirrhosis of liver without ascites; I25.10 Atherosclerotic heart disease of native coronary artery without angina pectoris; I11.0 Hypertensive heart disease with heart failure; I50.9 Heart failure, unspecified; Z87.891 Personal history of nicotine dependence
CPT/HCPCS: 36415; 71045; 71275; 80053; 83690; 83880; 84484; 85025; 93005; 99284; Q9967

== ENCOUNTER 2021-06-06 07:47 | Outpatient (CLI) | payer MEDICARE ==
--- NOTE | 2021-06-06 17:15 | Ultrasound Report ---
PROCEDURE: Abdomen Limited INDICATIONS: ALCOHOLIC CIRRHOSIS OF LIVER WITH ASCITIES TECHNIQUE: Real-time scanning was performed of the abdominal and retroperitoneal organs, with image documentatio n. COMPARISON: Abdomen ultrasound 08/28/2020 FINDINGS: Liver: Liver is small measuring 12 cm and appears nodular in echotexture. No focal lesions. TIPS is noted. Gallbladder: Removed. Biliary ducts: Intrahepatic bile ducts are non-dilated. Extrahepatic bile duct caliber measures 9 m m. Normal is 6-7 mm or less in diameter, or 10 mm or less post-cholecystectomy. Pancreas: Visualized portions of the pancreas are sonographically normal. Kidneys: Right kidney measures 13.6 cm long. No hydronephrosis or nephrolithiasis. No solid masses . Simple renal cyst is noted in the inferior pole measuring 9 x 8 x 8 mm. Aorta: Visualized aorta is normal in caliber at less than 3 cm. Iliacs: Proximal common iliac arteries are normal in caliber at less than 2.5 cm. IVC: Intrahepatic inferior vena cava is patent. Miscellaneous: No free abdominal fluid. IMPRESSION: Hepatic cirrhosis with TIPS noted. No ascites. Reviewed by: Sanna Arciniega MD on 06/06/2021 5:14 PM PDT Approved by: Sanna Arciniega MD on 06/06/2021 5:14 PM PDT Station ID: [id number]
== END 2021-06-06 07:48 | disposition home or self-care (01) ==
LOC: DI 07:47
PROVIDERS: ATTEND Internal Medicine
DX: K70.31 Alcoholic cirrhosis of liver with ascites (principal); Z95.828 Presence of other vascular implants and grafts

== ENCOUNTER 2021-09-17 17:03 | Emergency (ER) | payer MEDICARE ==
[2021-09-17] MEDS ORDERED: cefTRIAXone 1 GM VIAL IVP STA (17:19)
[2021-09-17] MEDS ORDERED: PANTOPRAZOLE 40 MG VIAL IVP STA (17:19)
[2021-09-17] MEDS ORDERED: OCTREOTIDE 500 MCG in SODIUM CHLORIDE 0.9% 100ML 95 ML IV STA (17:21)
[2021-09-17] MEDS ORDERED: OCTREOTIDE 100 MCG/ML VIAL IVP STA (17:21)
[2021-09-17] MEDS ORDERED: OCTREOTIDE 500 MCG in SODIUM CHLORIDE 0.9% 100ML 99 ML IV STA (17:25)
[2021-09-17] MEDS ORDERED: SODIUM CHLORIDE 0.9% 1,000 ML IV STA (17:27)
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
[2021-09-17] MEDS ORDERED: ONDANSETRON 4 MG/2 ML VIAL IVP STA (17:31)
[2021-09-17] MEDS ORDERED: METOCLOPRAMIDE 10 MG/2 ML VIAL IVP STA (17:33)
[2021-09-17 17:39] LABS: BASOPHILS % (AUTO) 0.6 %; EOSINOPHILS % (AUTO) 1.7 %; HCT - HEMATOCRIT 40.2 % (42.0-52.0); HGB - HEMOGLOBIN 14.2 g/dL (14.0-18.0); LYMPHOCYTES % (AUTO) 8.8 %; MEAN CORPUSCULAR HEMOGLOBIN 32.3 pg (27.0-31.0); MEAN CORPUSCULAR HGB CONC 35.3 g/dL (32.0-36.0); MEAN CORPUSCULAR VOLUME 91.4 fL (80.0-94.0); MEAN PLATELET VOLUME 9.1 fL (7.4-11.4); MONOCYTES % (AUTO) 11.9 %; NEUTROPHILS % (AUTO) 76.8 %; PLT - PLATELET COUNT 92 10^3/uL (130-450); RED CELL DISTRIBUTION WIDTH 14.6 % (12.0-15.0); WHITE BLOOD COUNT 14.2 x10^3/uL (4.8-10.8)
[2021-09-17 17:43] LABS: ABNORMAL LYMPHS % (MANUAL) 0 %; BAND NEUTROPHILS % (MANUAL) 0 %
[2021-09-17 17:50] LABS: ALBUMIN 3.6 g/dL (3.2-5.5); BILIRUBIN,TOTAL 1.8 mg/dL (0.2-1.0); CALCIUM 9.7 mg/dL (8.5-10.3); CREATININE 1.4 mg/dL (0.6-1.2); POTASSIUM 4.7 mmol/L (3.5-5.0); TOTAL PROTEIN 7.3 g/dL (6.7-8.2)
[2021-09-17 18:07] LABS: INR 1.3 (0.8-1.2); PT - PROTHROMBIN TIME 14.1 secs (9.9-12.6)
[2021-09-17 18:14] LABS: PARTIAL THROMBOPLASTIN TIME 37.2 secs (24.9-33.3)
[2021-09-17 18:20] LABS: LYMPHOCYTES % (MANUAL) 7 %; MONOCYTES # (MANUAL) 1.8 10^3/uL (0.0-1.0); NEUTROPHILS # (MANUAL) 10.4 10^3/uL (1.5-6.6); REACTIVE LYMPHS % (MANUAL) 7 %
[2021-09-17 18:21] LABS: DIFFERENTIAL COMMENT MANUAL DIFFERENTIAL; PLATELET ESTIMATE, MANUAL DECREASED (<130,000) (NORMAL); PLATELET MORPHOLOGY NORMAL APPEARANCE (NORMAL); RBC MORPHOLOGY (MULTIPLE) NORMAL APPEARANCE (NORMAL); WBC MORPHOLOGY (MULTIPLE) NORMAL APPEARANCE (NORMAL)
--- NOTE | 2021-09-17 19:10 | XRAY Report ---
PROCEDURE: Chest 1 View X-Ray INDICATIONS: fever TECHNIQUE: One view of the chest was acquired. COMPARISON: Chest x-ray one view, 10/29/2020. FINDINGS: Surgical changes and devices: None. Lungs and pleura: No pleural effusions or pneumothorax. Lungs are clear. Mediastinum: Mediastinal contours appear normal. Heart size is normal. Bones and chest wall: No suspicious bony lesions. Overlying soft tissues appear unremarkable. IMPRESSION: No acute cardiopulmonary disease. Reviewed by: New Augustin MD on 09/17/2021 7:09 PM PDT Approved by: New Augustin MD on 09/17/2021 7:09 PM PDT Station ID: [id number]
[2021-09-17 19:19] LABS: BASOPHILS % (AUTO) 0.6 %; EOSINOPHILS % (AUTO) 0.9 %; HCT - HEMATOCRIT 39.2 % (42.0-52.0); HGB - HEMOGLOBIN 13.9 g/dL (14.0-18.0); LYMPHOCYTES % (AUTO) 4.8 %; MEAN CORPUSCULAR HEMOGLOBIN 32.3 pg (27.0-31.0); MEAN CORPUSCULAR HGB CONC 35.5 g/dL (32.0-36.0); MEAN PLATELET VOLUME 9.1 fL (7.4-11.4); MONOCYTES % (AUTO) 11.7 %; NEUTROPHILS % (AUTO) 81.5 %; PLT - PLATELET COUNT 86 10^3/uL (130-450); RED BLOOD COUNT 4.31 10^6/uL (4.70-6.10); RED CELL DISTRIBUTION WIDTH 14.6 % (12.0-15.0); WHITE BLOOD COUNT 17.1 x10^3/uL (4.8-10.8)
[2021-09-17 19:21] LABS: ABNORMAL LYMPHS % (MANUAL) 0 %
[2021-09-17 19:52] LABS: BAND NEUTROPHILS % (MANUAL) 2 %; DIFFERENTIAL COMMENT MANUAL DIFFERENTIAL; EOSINOPHILS # (MANUAL) 0.2 10^3/uL (0-0.7); LYMPHOCYTES # (MANUAL) 0.5 10^3/uL (1.5-3.5); LYMPHOCYTES % (MANUAL) 2 %; MONOCYTES # (MANUAL) 1.9 10^3/uL (0.0-1.0); NEUTROPHILS # (MANUAL) 14.5 10^3/uL (1.5-6.6); PLATELET ESTIMATE, MANUAL DECREASED (<130,000) (NORMAL); PLATELET MORPHOLOGY NORMAL APPEARANCE (NORMAL); RBC MORPHOLOGY (MULTIPLE) NORMAL APPEARANCE (NORMAL); REACTIVE LYMPHS % (MANUAL) 1 %; WBC MORPHOLOGY (MULTIPLE) NORMAL APPEARANCE (NORMAL)
[2021-09-17 19:57] VITALS: BP 125/63
== END 2021-09-17 20:00 | disposition short-term general hospital (02) ==
LOC: ED 17:03
DX: I85.01 Esophageal varices with bleeding (principal); R50.9 Fever, unspecified; R09.02 Hypoxemia; I10 Essential (primary) hypertension; Z87.891 Personal history of nicotine dependence; Z20.822 Contact with and (suspected) exposure to COVID-19
CPT/HCPCS: 36415; 71045; 80053; 83690; 85025; 85610; 85730; 86850; 86900; 86901; 87635; 96374; 96375; 99285; J2354; J2765

== ENCOUNTER 2022-03-02 12:01 | Emergency (ER) | payer MEDICARE ==
--- NOTE | 2022-03-02 13:00 | XRAY Report ---
PROCEDURE: Chest 2 View X-Ray INDICATIONS: cough TECHNIQUE: 2 views of the chest were acquired. COMPARISON: Chest x-ray one view, 09/17/2021. FINDINGS: Surgical changes and devices: Postsurgical changes in the left upper quadrant of abdomen. Lungs and pleura: No pleural effusions or pneumothorax. Lungs are clear. Mediastinum: Mediastinal contours are normal. Heart size is normal. Bones and chest wall: No suspicious bony abnormalities. Degenerative changes in thoracic spine. Soft tissues appear unremarkable. IMPRESSION: No acute cardiopulmonary disease. Reviewed by: New Augustin MD on 03/02/2022 12:59 PM PST Approved by: New Augustin MD on 03/02/2022 12:59 PM PST Station ID: [id number]
--- NOTE | 2022-03-02 13:03 | ED Physician Documentation ---
PD HPI DYSPNEA - Stated complaint Stated Complaint: SOA/COUGH - Chief complaint Chief Complaint: Resp - History obtained from History obtained from: Patient - Additional information Additional information: 66-year-old gentleman with history of alcoholic cirrhosis, in remission presents with 5 to 7-day illness marked by cough productive of white sputum, shortness of breath, fevers and chills. He did not check and feels for COVID but there were some sick contacts that were visiting and they were COVID-negative. He has a history of tobacco abuse also in remission and has inhalers at home. PD PAST MEDICAL HISTORY - Past Medical History Past Medical History: Yes Cardiovascular: Congestive heart failure, Hypertension, Coronary artery disease Respiratory: Pneumonia, Shortness of breath, Other Neuro: Peripheral neuropathy, Tremors Endocrine/Autoimmune: None GI: Hiatal hernia, Cirrhosis : Kidney stones HEENT: None Psych: Depression, Anxiety Musculoskeletal: Fatigue, Chronic back pain Derm: None - Past Surgical History Past Surgical History: Yes General: Cholecystectomy, Hiatal hernia repair Ortho: Knee replacement - Present Medications Home Medications: Ambulatory Orders Medication Instructions Recorded Confirmed Levothyroxine [Synthroid] 250 mcg PO DAILY MDD 375 mcg 07/27/19 03/02/22 Sun/Sat Lactulose 15 ml PO DAILY 07/08/20 03/02/22 Rifaximin [Xifaxan] 200 mg PO DAILY 07/08/20 03/02/22 Spironolactone [Aldactone] 50 mg PO DAILY 07/08/20 03/02/22 Cholecalciferol (Vitamin D3) 2,000 mcg PO DAILY 08/19/20 03/02/22 [Vitamin D3] Multivitamin 1 tablet PO DAILY 08/19/20 03/02/22 Lactobacillus Rhamnosus GG 1 cap PO DAILY #10 cap 08/23/20 03/02/22 [Culturelle] B-Complex with Vitamin C [Super B 1 tab PO DAILY 09/19/20 03/02/22 Complex-Vitamin C] Amoxicillin 2 cap PO TID #30 cap 03/02/22 Furosemide [Lasix] 20 mg PO BID 03/02/22 03/02/22 guaiFENesin/CODEINE [Robitussin AC] 5 - 10 ml PO Q6H PRN #120 ml 03/02/22 - Allergies Allergies/Adverse Reactions: Allergies Allergy/AdvReac Type Severity Reaction Status Date / Time No Known Drug Allergies Allergy Verified 03/02/22 12:06 - Social History Does the pt smoke?: No Smoking Status: Never smoker Does the pt drink ETOH?: Yes Does the pt have substance abuse?: No - Immunizations Immunizations are current?: Yes - POLST Patient has POLST: No POLST Status: Full Code PD ED PE NORMAL - Vitals Vital signs reviewed: Yes - General General: Alert and oriented X 3, No acute distress - HEENT HEENT: PERRL, EOMI - Neck Neck: Supple, no meningeal sign, No bony TTP - Cardiac Cardiac: RRR, No murmur - Respiratory Respiratory: No respiratory distress, Other (Mild wheezing expiratory foss, nonlabored, no focal findings) - Abdomen Abdomen: Non tender - Derm Derm: Normal color, Warm and dry - Neuro Neuro: Alert and oriented X 3, Normal speech Results - Vitals Vitals: Vital Signs - 24 hr 03/02/22 12:06 Temperature 36.5 C Heart Rate 77 Respiratory 18 Rate Blood Pressure 149/63 H O2 Saturation 92 Oxygen O2 Source Room air PD Medical Decision Making - ED course ED course: 66-year-old gentleman with history of alcoholic cirrhosis and therefore immunocompromise presents with a respiratory illness. Clear chest x-ray. He declined COVID testing here and declined bronchodilators as he has them at home. Departure - Departure Disposition: 01 Home, Self Care Clinical Impression: Bronchitis Condition: Good Instructions: ED Bronchitis Asthmatic Prescriptions: Amoxicillin 2 cap PO TID #30 cap guaiFENesin/CODEINE [Robitussin AC] 5 - 10 ml PO Q6H PRN #120 ml PRN Reason: Cough Comments: I sent your prescription electronically to [facility] in [place]. Call your doctor to arrange a follow-up appointment, make the next available appointment. In the interim, return anytime if worse or if new symptoms develop.
[2022-03-02 13:25] VITALS: BP 133/68
== END 2022-03-02 13:24 | disposition home or self-care (01) ==
LOC: ED 12:01
DX: J40 Bronchitis, not specified as acute or chronic (principal)
CPT/HCPCS: 99283; 99284

== ENCOUNTER 2022-09-30 06:25 | Emergency (ER) | payer MEDICARE ==
[2022-09-30] MEDS ORDERED: MINERAL OIL ENEMA 133 ML BOTTLE RC STA (06:35)
[2022-09-30] MEDS ORDERED: MINERAL OIL 473 ML BOTTLE PO PRN (06:35)
--- NOTE | 2022-09-30 06:38 | ED Physician Documentation ---
History of Present Illness - Stated complaint Stated Complaint: GI - Chief complaint Chief Complaint: Abd Pain - History obtained from History obtained from: Patient - Additonal information Additional information: 67yoM with PMH alcoholic cirrhosis (sober x years) presents for constipation x5 days. Reporting rectal pain. Has taken his lactulose and several stool softeners without relief. Reports previous negative colonoscopies. Review of Systems Constitutional: denies: Fever, Chills GI: reports: Abdominal Pain, Constipation. denies: Abdominal Swelling, Nausea, Vomiting, Diarrhea, Hematemesis, Bloody / black stool : denies: Dysuria, Frequency, Hesitancy PD PAST MEDICAL HISTORY - Past Medical History Cardiovascular: Congestive heart failure, Hypertension, Coronary artery disease Respiratory: Pneumonia, Shortness of breath, Other Neuro: Peripheral neuropathy, Tremors Endocrine/Autoimmune: None GI: Hiatal hernia, Cirrhosis : Kidney stones HEENT: None Psych: Depression, Anxiety Musculoskeletal: Fatigue, Chronic back pain Derm: None - Past Surgical History Past Surgical History: Yes General: Cholecystectomy, Hiatal hernia repair Ortho: Knee replacement - Present Medications Home Medications: Ambulatory Orders Medication Instructions Recorded Confirmed Lactulose 15 ml PO DAILY 07/08/20 09/30/22 Spironolactone [Aldactone] 50 mg PO DAILY 07/08/20 09/30/22 Cholecalciferol (Vitamin D3) 2,000 mcg PO DAILY 08/19/20 09/30/22 [Vitamin D3] Multivitamin 1 tablet PO DAILY 08/19/20 09/30/22 B-Complex with Vitamin C [Super B 1 tab PO DAILY 09/19/20 09/30/22 Complex-Vitamin C] Furosemide [Lasix] 40 mg PO BID 03/02/22 09/30/22 Levothyroxine Sodium [Synthroid] 150 mcg PO DAILY 09/30/22 09/30/22 polyethylene glycoL 3350(BULK) 17 gm PO DAILY PRN #1 each 09/30/22 [Miralax] - Allergies Allergies/Adverse Reactions: Allergies Allergy/AdvReac Type Severity Reaction Status Date / Time No Known Drug Allergies Allergy Verified 03/02/22 12:06 - Social History Does the pt smoke?: No Smoking Status: Never smoker Does the pt drink ETOH?: Yes Does the pt have substance abuse?: No - Immunizations Immunizations are current?: Yes - POLST Patient has POLST: No POLST Status: Full Code PD ED PE NORMAL - Vitals Vital signs reviewed: Yes - General General: Alert and oriented X 3, Well developed/nourished, Other (uncomfortable) - HEENT HEENT: Atraumatic - Cardiac Cardiac: RRR, No murmur, Strong equal pulses - Derm Derm: Normal color, Warm and dry, No rash - Extremities Extremities: No deformity, No tenderness to palpate, Normal ROM s pain, No edema - Neuro Neuro: Alert and oriented X 3, due diligence coordinator 2-12 intact, No motor deficit, Normal speech - Psych Psych: Normal mood, Normal affect Results - Vitals Vitals: Vital Signs - 24 hr 09/30/22 09/30/22 06:35 09:12 Temperature 36.3 C L Heart Rate 81 65 Respiratory 16 95 H Rate Blood Pressure 153/74 H 141/61 H O2 Saturation 95 Oxygen O2 Source Room air PD Medical Decision Making - ED course Complexity details: reviewed results, re-evaluated patient, considered differential, d/w patient, d/w family ED course: Constipation. Patient and have not tried enemas at home because "we do not know how to use them". Abdomen is soft. Will give oral mineral oil and mineral oil enema. Patient able to have a small bowel movement after mineral oil enema, however he unfortunately spilled most of the enema on the bed. Will order soapsuds enema. Care of patient signed out to morning provider. Departure - Departure Disposition: 01 Home, Self Care Clinical Impression: Constipation Qualifiers: Constipation type: slow transit constipation Qualified Code(s): K59.01 - Slow transit constipation Condition: Stable Instructions: ED Constipation Prescriptions: polyethylene glycoL 3350(BULK) [Miralax] 17 gm PO DAILY PRN #1 each PRN Reason: Constipation Comments: Stay well-hydrated. Continue usual medications. I would suggest trying MiraLAX 17 g dose in 4 to a ounces of water every 1-2 hours through the day today. He can start off with even and 34 g dose (double dose). Typically this will get things moving over the course of several hours. Once you start having bowel movements, then back off on the degree of laxative and stool softeners so you do not overdo. Continue with daily laxatives after that. Follow-up with your primary care or return to the ER if needed if not improved well or worse general symptoms. Forms: PCP List Discharge Date/Time: 09/30/22 09:12
--- OUTSIDE RECORDS SUMMARY | 2022-09-30 06:38 | EXTERNAL MEDICAL SUMMARY RPT | Continuity of Care Document ---
Author Name Unknown Address [address] [place] [address] Phone Organization [facility] Address [address] [place] [address] Phone Care Team Providers Care Senior Oracle Database Administrator Name Role Phone Unavailable Unavailable Unavailable Kaz Newman Unavailable Unavailable Allergies and Intolerances date description facility reaction severity (no date) acetaminophen [facility] (no reaction) (no severity) Medications date description facility 2022-09-27 00:00 Spironolactone [facility] 2022-09-27 00:00 Ascorbic Acid (Vitamin C) [facility] 2022-09-27 00:00 Furosemide [facility] 2022-09-28 00:00 Pantoprazole [facility] 2022-09-28 00:00 Levothyroxine [facility] 2022-09-27 00:00 Levothyroxine [facility] 2022-09-28 00:00 Losartan [facility] Problems date description facility 2022-09-27 00:00 Hepatic cirrhosis [facility] 2022-09-27 00:00 Pancreatitis [facility] 2022-09-27 00:00 Elevated troponin level [facility] 2022-09-27 00:00 Ground glass opacity present on imaging of [facility] 2022-09-28 08:33 Hypothyroidism, unspecified [facility] 2022-09-28 08:33 Essential (primary) [facility] 2022-09-28 08:33 Unspecified cirrhosis of liver [facility] 2022-09-28 08:33 Acute pancreatitis w ithout necrosis or infection, unspecifie [facility] 2022-09-28 08:33 Other specified abnormalities o f plasma proteins [facility] 2022-09-28 08:33 Other nonspecific abnormal find ing of [facility] 2022-09-28 09:22 Hypothyroidism, unspecified [facility] 2022-09-28 09:22 Essential (primary) [facility] 2022-09-28 09:22 Unspecified cirrhosis of [facility] 2022-09-28 09:22 Acute pancreatitis w ithout necrosis or infection, [facility] 2022-09-28 09:22 Other specified abnormalities [facility] 2022-09-28 09:22 Other nonspecific abnormal find ing of [facility] 2022-09-28 11:40 Hypothyroidism, unspecified [facility] 2022-09-28 11:40 Essential (primary) [facility] 2022-09-28 11:40 Unspecified cirrhosis of [facility] 2022-09-28 11:40 Acute pancreatitis w ithout necrosis or infection, [facility] 2022-09-28 11:40 Other specified abnormalities [facility] 2022-09-28 11:40 Other nonspecific abnormal find ing of [facility] 2022-09-28 11:58 Hypothyroidism, unspecified [facility] 2022-09-28 11:58 Essential (primary) [facility] 2022-09-28 11:58 Unspecified cirrhosis of [facility] 2022-09-28 11:58 Acute pancreatitis w ithout necrosis or infection, [facility] 2022-09-28 11:58 Other specified abnormalities [facility] 2022-09-28 11:58 Other nonspecific abnormal find ing of [facility] 2022-09-28 12:52 Hypothyroidism, unspecified [facility] 2022-09-28 12:52 Essential (primary) [facility] 2022-09-28 12:52 Unspecified cirrhosis of [facility] 2022-09-28 12:52 Acute pancreatitis w ithout necrosis or infection, [facility] 2022-09-28 12:52 Other specified abnormalities [facility] 2022-09-28 12:52 Other nonspecific abnormal find ing of [facility] 2022-09-28 13:14 Hypothyroidism, unspecified [facility] 2022-09-28 13:14 Essential (primary) [facility] 2022-09-28 13:14 Unspecified cirrhosis of [facility] 2022-09-28 13:14 Acute pancreatitis w ithout necrosis or infection, [facility] 2022-09-28 13:14 Other specified abnormalities [facility] 2022-09-28 13:14 Other nonspecific abnormal find ing of [facility] 2022-09-28 13:15 Hypothyroidism, unspecified [facility] 2022-09-28 13:15 Essential (primary) [facility] 2022-09-28 13:15 Unspecified cirrhosis of [facility] 2022-09-28 13:15 Acute pancreatitis w ithout necrosis or infection, [facility] 2022-09-28 13:15 Other specified abnormalities o [facility] 2022-09-28 13:15 Other nonspecific abnormal find ing of [facility] 2022-09-28 15:51 Hypothyroidism, unspecified [facility] 2022-09-28 15:51 Essential (primary) [facility] 2022-09-28 15:51 Unspecified cirrhosis of [facility] 2022-09-28 15:51 Acute pancreatitis w ithout necrosis or infection, [facility] 2022-09-28 15:51 Other specified abnormalities [facility] 2022-09-28 15:51 Other nonspecific abnormal find ing of [facility] 2022-09-29 09:03 Hypothyroidism, unspecified [facility] 2022-09-29 09:03 Essential (primary) [facility] 2022-09-29 09:03 Unspecified cirrhosis of [facility] 2022-09-29 09:03 Acute pancreatitis w ithout necrosis or infection, [facility] 2022-09-29 09:03 Other specified abnormalities [facility] 2022-09-29 09:03 Other nonspecific abnormal find ing of [facility] 2022-09-29 10:53 Hypothyroidism, unspecified [facility] 2022-09-29 10:53 Essential (primary) [facility] 2022-09-29 10:53 Unspecified cirrhosis of [facility] 2022-09-29 10:53 Acute pancreatitis w ithout necrosis or infection, [facility] 2022-09-29 10:53 Other specified abnormalities [facility] 2022-09-29 10:53 Other nonspecific abnormal find ing of [facility] 2022-09-29 11:48 Hypothyroidism, unspecified [facility] 2022-09-29 11:48 Essential (primary) [facility] 2022-09-29 11:48 Unspecified cirrhosis of [facility] 2022-09-29 11:48 Acute pancreatitis w ithout necrosis or infection, unspecifie [facility] 2022-09-29 11:48 Other specified abnormalities o f plasma proteins [facility] 2022-09-29 11:48 Other nonspecific abnormal find ing of lung field [facility] Procedures date description facility 2022-09-27 00:00 CT angiography [facility] Results/Labs test date facility value unit notes Social History date description facility 2022-09-27 00:00 Ex-smoker (finding) [facility] Vital Signs date measurement value units 2022-09-27 00:00 BMI 36.9 kg/m2 2022-09-27 00:00 BP_diastolic 54 mmHg 2022-09-27 00:00 BP_systolic 136 mmHg 2022-09-27 00:00 heart_rate 53 /min 2022-09-27 00:00 height_metric 180.34 cm 2022-09-27 00:00 height_standard 71 in 2022-09-27 00:00 o2_saturation 96 % 2022-09-27 00:00 respiration_rate 16 /min 2022-09-27 00:00 temperature_metric 36.17 C 2022-09-27 00:00 temperature_standard 97.1 F 2022-09-27 00:00 weight_metric 115.5 kg 2022-09-27 00:00 weight_standard 254.63 lb 2022-09-28 00:00 BP_diastolic 49 mmHg 2022-09-28 00:00 BP_systolic 107 mmHg 2022-09-28 00:00 heart_rate 62 /min 2022-09-28 00:00 o2_saturation 96 % 2022-09-28 00:00 respiration_rate 18 /min 2022-09-28 00:00 temperature_metric 36.17 C 2022-09-28 00:00 temperature_standard 97.1 F
[2022-09-30] MEDS ORDERED: SOAP SUDS ENEMA 1 EACH RC ONE (06:57)
[2022-09-30] MEDS ORDERED: BISACODYL 10 MG SUPP PR STA (08:07)
[2022-09-30] MEDS ORDERED: bisacodyL 5 MG TABLET PO STA (08:07)
--- NOTE | 2022-09-30 08:34 | ED Physician Documentation ---
ED Addendum - Addendum Addendum: 09/30/22 08:32 The patient was given a mineral enema and most of it just came back out. I did a rectal digital exam with patient's consent. There was a reasonable ball of stool in the rectum which I broke up with digitally with my finger and removed a small amount. He was then given a soapsuds enema without much out. It however is fairly softened at the rectum. Now seems to be a matter of pushing. He states it is uncomfortable for him to push much. We can try a stimulant laxative such as bisacodyl oral and rectal. However at this point not much more on the bottom meds. Will improve the top and with him continuing his lactulose and could add some MiraLAX regularly through the day today. He was hoping to have a large bowel movement here. I think the process will take more through the day. We can discharge him with instructions for MiraLAX and return later if needed.
[2022-09-30 09:18] VITALS: BP 141/61
== END 2022-09-30 09:12 | disposition home or self-care (01) ==
LOC: ED 06:25
DX: K59.01 Slow transit constipation (principal)
CPT/HCPCS: 99282; 99283; A9270